=== PATIENT | male | born 1960 | race Caucasian/White ===

== ENCOUNTER → 2016-11-05 | Outpatient (CLI) | payer BC, OTHER ==
[~2016-11-05] MED LIST: ACET-1256 PO; AMIT10TA6 PO; ATV1 PO; BENA-4 PO; CALC500C3 PO; CHOL2000 PO; CYM/30 PO; CYM30 PO; CYM60 PO; DIAZ2TAB PO; FLV1 PO; HYDR10TA52 PO; LEVE500T PO; LEVO300T2 PO; LSN20 PO; LSX40 PO; MGNO400 PO; NRN/600 PO; NRN100 PO; OMEP40CA41 PO; OXYC-106 PO; OXYC7.5T62 PO; PSYL48.59 PO; SLWMEC PO; SOMA6INJ SQ; SUMA50TA15 PO; TEST1GEL15 TOP; TEST1INJ2 IM; THM100 PO; TNR50 PO; TUMS PO; VTMD PO; ZLF/50 PO; ZOLP10TA PO; ZOLP10TA6 PO
--- NOTE | 2016-11-05 12:46 | DIAGNOSTIC IMAGING REPORT ---
RIGHT KNEE RADIOGRAPHS WITH COMPARISON STANDING AP RADIOGRAPH OF THE LEFT KNEE CLINICAL HISTORY: Chronic right knee pain. COMPARISON: Knee radiographs May 18, 2015. FINDINGS: Comparison standing AP radiograph of left knee demonstrates arthritis within the patellofemoral compartment is difficult to assess on this exam. There is marked joint space narrowing with extensive osteophytosis of the patellofemoral compartment of the right knee. There is moderate medial component joint space narrowing with osteophytosis. No fracture is identified. There may be a small right knee joint effusion. IMPRESSION: 1. Severe arthritis within the right knee, most pronounced within the medial and patellofemoral compartments. 2. Small right knee joint effusion. 3. No acute fracture. Electronically signed by: Brigido Jones M.D. 11/05/2016 12:44 PM Dictated Date/Time: 11/05/2016 12:42 PM
== END | disposition home or self-care (01) ==
LOC: C.RDSM 11:00
PROVIDERS: ATTEND Physical Medicine & Rehabilitation Sports Medicine
DX: M25.461 Effusion, right knee (principal); M17.11 Unilateral primary osteoarthritis, right knee

== ENCOUNTER 2016-12-14 09:10 | Inpatient (IN) | payer BC, OTHER ==
[2016-12-13 23:00] VITALS: BP 121/72; PULSE 70; O2SAT 95
[2016-12-14] VITALS (13 sets, daily range): BP systolic 57–122; BP diastolic 25–76; PULSE 68–80; TEMP 36.3–37.1; O2SAT 91–98; Ht 180.3 cm; Wt 143.2 kg
[~2016-12-14] VITALS: Ht 180.3 cm; Wt 143.2 kg
[~2016-12-14 09:10] MED LIST changes: -AMIT10TA6 PO; -ATV1 PO; -CALC500C3 PO; -CHOL2000 PO; -CYM30 PO; -CYM60 PO; -DIAZ2TAB PO; -FLV1 PO; -LSN20 PO; -MGNO400 PO; -NRN/600 PO; -NRN100 PO; -OXYC-106 PO; -SLWMEC PO; -SUMA50TA15 PO; -TEST1GEL15 TOP; -THM100 PO; -TUMS PO; -VTMD PO; -ZLF/50 PO; -ZOLP10TA6 PO
[2016-12-14] MEDS ORDERED: SODIUM CHLORIDE 0.9% 1000ML 1,000 ML IV STA (09:38)
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
[2016-12-14] MEDS ORDERED: CYM60 PO (09:50)
[2016-12-14] MEDS ORDERED: DIAZ2TAB PO (09:50)
[2016-12-14] MEDS ORDERED: CYM30 PO (09:50)
[2016-12-14] MEDS ORDERED: NRN100 PO (09:50)
[2016-12-14] MEDS ORDERED: OXYC-106 PO (09:50)
[2016-12-14] MEDS ORDERED: AMIT10TA6 PO (09:50)
[2016-12-14] MEDS ORDERED: ATV1 PO (09:50)
--- NOTE | 2016-12-14 10:11 | DIAGNOSTIC IMAGING REPORT ---
CHEST ONE VIEW PORTABLE CLINICAL HISTORY: confusion dyspnea COMPARISON STUDY: 08/16/2016 FINDINGS: Cardiomegaly. Pulmonary vasculature. Diaphragms are smooth. IMPRESSION: Congestive heart failure Electronically signed by: Papo Ruiz M.D. 12/14/2016 10:10 AM Dictated Date/Time: 12/14/2016 10:10 AM
[2016-12-14 11:02] LABS: BASO % 0.1 %; BASO ABS # 0.01 K/uL (0-0.2); COMPLETE YES; EOS % 0.8 %; HEMATOCRIT 41.3 % (42-52); IG% 0.3 %; LYMPH % 9.6 %; LYMPH ABS # 1.25 K/uL (1.2-3.4); MEAN CELL VOLUME 90.8 fL (80-100); MEAN CORPUSCULAR HEMOGLOBIN 31.2 pg (25-34); MEAN CORPUSCULAR HGB CONC 34.4 g/dl (32-36); MEAN PLATELET VOLUME 9.4 fL (7.4-10.4); MONO % 5.9 %; NEUT % 83.3 %; PLATELET COUNT 220 K/uL (130-400); RED BLOOD COUNT 4.55 M/uL (4.7-6.1); WHITE BLOOD COUNT 12.97 K/uL (4.8-10.8)
--- NOTE | 2016-12-14 11:06 | DIAGNOSTIC IMAGING REPORT ---
HEAD CT NONCONTRAST CT DOSE: 786.26 mGy.cm HISTORY: Mental status change confusion TECHNIQUE: Multiaxial CT images of the head were performed without the use of intravenous contrast. Comparison: 08/16/2016 Findings: The paranasal sinuses and mastoid air cells are clear. The calvarium and skull base are intact. The ventricles and sulci are within normal limits. There is no mass, hematoma, midline shift, or acute infarct. Impression: No acute intracranial abnormality. Electronically signed by: Papo Ruiz M.D. 12/14/2016 11:04 AM Dictated Date/Time: 12/14/2016 11:02 AM
[2016-12-14] MEDS ORDERED: FUROSEMIDE 40 MG/4 ML VIAL IV STA (11:16)
[2016-12-14] MEDS ORDERED: NALOXONE HCL 0.4 MG/1 ML VIAL/CARP IV STA ×2 (11:19→12:19)
[2016-12-14 11:27] LABS: BENZODIAZEPINE, URINE NEG (NEG); COCAINE,URINE NEG (NEG); PHENCYCLIDINE, URINE NEG (NEG)
[2016-12-14 11:31] LABS: BLOOD UREA NITROGEN 106 mg/dl (7-18); BUN/CREATININE RATIO 8.8 (10-20); CALCIUM 6.6 mg/dl (8.5-10.1); CARBON DIOXIDE 19 mmol/L (21-32); CHLORIDE 91 mmol/L (98-107); GLUCOSE 85 mg/dl (70-99); POTASSIUM 4.1 mmol/L (3.5-5.1); SODIUM 131 mmol/L (136-145)
[2016-12-14 12:03] LABS: ALB/GLOB RATIO 0.7 (0.9-2); ALKALINE PHOSPHATASE 55 U/L (45-117); ALT/SGPT 39 U/L (12-78); AST/SGOT 70 U/L (15-37)
[2016-12-14] MEDS ORDERED: CALCIUM GLUCONATE 10% 10 ML VIAL IV ONE (12:30)
[2016-12-14] MEDS ORDERED: HYDROCORTISONE IV 100 MG in SYRINGE 0 ML IV ONE (12:30)
[2016-12-14] MEDS ORDERED: CALCIUM GLUCONATE 10% 1,000 MG in SODIUM CHLORIDE 0.9% 50ML 50 ML IV ONE (12:30)
[2016-12-14] MEDS ORDERED: HYDROCORTISONE SOD SUCCINATE 100 MG/2 ML VIAL ONE (12:31)
[2016-12-14] MEDS ORDERED: TESTOSTERONE CYPIONATE IM 200 MG/ML VIAL IM SCH (13:00)
[2016-12-14] MEDS ORDERED: NRN/600 PO (13:26)
[2016-12-14] MEDS ORDERED: NOREPINEPHRINE BITARTRATE 1 MG/ML 4 ML VIAL ONE (13:58)
[2016-12-14] MEDS ORDERED: NOREPINEPHRINE BIT INJ 8 MG in DEXTROSE 5% 500ML 500 ML IV STA (13:59)
[2016-12-14] MEDS ORDERED: PATIENT'S HEIGHT AND/OR WEIGHT NEEDED SCH (14:15)
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
[2016-12-14 14:34] LABS: PROTHROMBIN TIME (PATIENT) 11.2 SECONDS (9.0-12.0)
[2016-12-14] MEDS ORDERED: GABAPENTIN 100 MG CAP PO SCH (15:00)
[2016-12-14] MEDS: NOREPINEPHRINE BIT INJ 8 MG in DEXTROSE 5% 500ML 500 ML IV PRN ×2 (15:07→23:04)
[2016-12-14] MEDS: SODIUM CHLORIDE 0.9% 1000ML 1,000 ML IV SCH ×2 (15:09→23:03)
--- NOTE | 2016-12-14 15:18 | DIAGNOSTIC IMAGING REPORT ---
RENAL ULTRASOUND HISTORY: Flank pain. Renal insufficiency. NATI COMPARISON: None. FINDINGS: Right kidney: Maximum dimension 11.2 cm. No evidence for hydronephrosis Normal corticomedullary differentiation and cortical thickness. Left kidney: Maximum dimension 11.5 cm. No evidence for hydronephrosis Normal corticomedullary differentiation and cortical thickness. Bladder: No bladder wall thickening. The bilateral ureteral jets were identified. IMPRESSION: Normal renal ultrasound. Electronically signed by: Papo Ruiz M.D. 12/14/2016 3:17 PM Dictated Date/Time: 12/14/2016 3:15 PM
[2016-12-14] MEDS: DOXYCYCLINE IV 100 MG in DEXTROSE 5% 100ML 100 ML IV SCH (15:28)
[2016-12-14] MEDS ORDERED: CALCIUM GLUCONATE 10% 1,000 MG in SODIUM CHLORIDE 0.9% 50ML 50 ML IV STA (16:17)
[2016-12-14 16:37] LABS: ALB/GLOB RATIO 0.6 (0.9-2); BUN/CREATININE RATIO 9.8 (10-20); CALCIUM 6.7 mg/dl (8.5-10.1); POTASSIUM 4.1 mmol/L (3.5-5.1)
[2016-12-14 16:45] LABS: VEN BLD GAS O2 SATURATION 89.9 %; VEN BLOOD GAS BASE EXCESS -9.9 mmol/L
[2016-12-14 16:47] LABS: ISTAT ARTERIAL BLOOD GAS HCO3 18 meq/L (19-24); ISTAT ARTERIAL BLOOD GAS PCO2 52 mmHg (35-46); ISTAT ARTERIAL BLOOD GAS PO2 65 mmHg (80-95); ISTAT ARTERIAL BLOOD GAS pH 7.15 (7.35-7.45); ISTAT CARBON DIOXIDE 20 mEq/l (24-31); ISTAT DELIVERY SYSTEM SimpleMask; ISTAT SITE Art Line
[2016-12-14 16:54] LABS: URINE APPEARANCE CLOUDY (CLEAR); URINE BILIRUBIN NEG (NEG); URINE COLOR YELLOW; URINE EPITHELIAL CELL AUTO >30 /lpf (0-5); URINE NITRITE NEG (NEG); URINE SPECIFIC GRAVITY 1.009 (1.000-1.030); UROBILINOGEN NEG (NEG)
[2016-12-14 16:55] LABS: MANUAL MICROSCOPIC REQUIRED? NO; REVIEW REQ? YES
--- NOTE | 2016-12-14 16:59 | DIAGNOSTIC IMAGING REPORT ---
CHEST ONE VIEW PORTABLE CLINICAL HISTORY: S/P CENTRAL LINE PLACEMENT COMPARISON STUDY: Early to same date FINDINGS: Stable cardiac enlargement. Central catheter place in superior vena cava. No evidence pneumothorax. IMPRESSION: Central catheter placed in the vena cava. No evidence pneumothorax. Electronically signed by: Papo Ruiz M.D. 12/14/2016 4:58 PM Dictated Date/Time: 12/14/2016 4:57 PM
[2016-12-14 17:04] LABS: URINE MUCUS PRESENT (NONE PRSENT)
--- NOTE | 2016-12-14 17:08 | NEPHROLOGY CONSULTATION ---
DATE OF CONSULTATION: 12/14/2016 ATTENDING OF RECORD: Dr. Crump. REASON FOR CONSULTATION: COURTNEY. HISTORY OF PRESENT ILLNESS: This is a 56-year-old male. He presents with extreme lethargy, altered mental status, ambulatory dysfunction while taking Percocet for the past week for chronic back pain issues and presents with a creatinine of 12. The patient back in 2012 had a very similar presentation. At that time, the patient's creatinine was 11 and the patient was found to be hypotensive with systolic pressures in the 70s and the patient was treated with a Narcan drip. During that presentation, calcium levels were low and the patient was repleted with aggressive calcium and the patient started to clinically improve and the patient avoided needing dialysis, creatinine eventually improved down to 1.5. The patient was seen by the [facility] at that time in 2012 when he was being followed by Dr. Dobson and Dr. Dobson no longer follows with the patient secondary to his chronic pain medication habit, currently now being followed by a [facility] primary, so I have been asked to evaluate the patient. The patient in the Emergency Room was given Narcan to help reverse the pain medications and the patient knows what year it is, knows the president, knows that he is in [facility], although still is quite lethargic. His feels that he looks much better now compared to presentation. Jimenez catheter was placed and patient does have good urine output. There was some suggestion of congestive heart failure; however, appears more like an infiltrative process and being treated as pneumonia and antibiotics have been started. The patient is hypotensive requiring pressor as well as IV fluids and has been started on stress dose steroids given his history of panhypopituitarism, requiring oral steroids at baseline. The patient denies any significant itching. No nausea or vomiting and still eating but is quite lethargic for the past 2 days and has been noticed to be twitching, which is likely a side effect of one of the medications he is on in the setting of renal failure. REVIEW OF SYSTEMS: No headaches, no blurry vision. Positive twitching, no overt shortness of breath, no chest pain, no nausea or vomiting, no diarrhea or constipation. The patient's urine is dark in color. Does have chronic pain issues and chronic back pain. All other review of systems otherwise negative. PAST MEDICAL HISTORY: CKD stage III with baseline creatinine of 1.5, alcohol abuse, hypertension, chronic substance abuse issues, gout, GERD, depression, hyperlipidemia, hypothyroidism; panhypopituitarism, requiring chronic steroids; seizure disorder, and history of subdural hematoma. PAST SURGICAL HISTORY: Transsphenoidal pituitary resection, tonsillectomy. FAMILY HISTORY: Significant for father with multiple myeloma, but did not require dialysis. Father also had hypertension. SOCIAL HISTORY: No smoking but does chew tobacco. Denies alcohol use and denies illegal substances is and lives with . HOME MEDICATIONS: Significant for amitriptyline 10 mg at night, atenolol 50 mg daily, benazepril/hydrochlorothiazide, Valium 2 mg p.o. q. 12, duloxetine 90 mg daily, Neurontin 3 times a day, hydrocortisone 20 mg in the morning and 10 mg at night, levothyroxine 300 mcg daily, sertraline 50 mg p.o. b.i.d., and Ambien 10 mg at night. CURRENT MEDICATIONS: Depo testosterone 100 mcg IM weekly, levothyroxine 300 mcg daily, heparin 5,000 units subQ q. 12, hydrocortisone 50 mg IV q. 6, ceftriaxone 1 gram IV q. 24, doxycycline 100 mg IV q. 12, Neurontin 100 mg daily, Levophed, normal saline at 125 mL an hour. The patient received 100 mg hydrocortisone, 1 gram of calcium gluconate, 2 doses of Narcan, 1 dose of Lasix as well as a 500 mL of fluid bolus. PHYSICAL EXAMINATION: VITAL SIGNS: Temperature 36.3, pulse 68, respiratory rate is 22, blood pressure 91/46, satting 91% on 4 liters. GENERAL: Awake, alert, oriented x3, obese, lethargic but arousable and does answer questions. EYES: No scleral icterus. HEENT: Mucous membranes are dry. NECK: Supple. PULMONARY: Decreased breath sounds at the bases. CARDIAC: Distant heart sounds. ABDOMEN: Bowel sounds positive, although hypoactive; soft, nontender. EXTREMITIES: No significant clubbing, cyanosis or edema. NEUROLOGICALLY: Lethargic and has some twitching. DERMATOLOGIC: No rash or ulcers noted. LABORATORIES AND IMAGING DATA: White count is 12, H\T\H 14 and 41 and platelet count is 220. Sodium level is 131, potassium 4.1, chloride is 91, bicarbonate is 19, BUN is 106, creatinine is 12, glucose is 85. Calcium 6.6, AST is 70, total CK 3280, procalcitonin 12, albumin is 3.2. PTH of 275, vitamin D of 4.4, ionized calcium 0.79, lactic acid of 1.3. INR is 1. Opiates are positive. Ethyl alcohol negative. Urine tox screen otherwise negative. Blood cultures pending. Renal ultrasound with right kidney of 11.2 cm and the left kidney 11.5 cm. Normal renal ultrasound. Chest x-ray shows congestive heart failure. Head CT shows no acute intracranial abnormality. ASSESSMENT AND PLAN: 1. Acute kidney injury in the setting of pain medication, causing volume depletion and hypotension, appears significant enough to have caused acute tubular necrosis. Checking a urinalysis with micro as well as a random urine sodium now. The patient's potassium levels are stable; the patient is not severely acidotic and denies ingesting any ethylene glycol or methanol. Indication for dialysis would be clearance of medications that may have build up in his system in the setting of renal failure. The patient does have some twitching, which is likely side effect of one of the meds that he is on. I would like to stop the Neurontin completely for now until kidney function starts to improve. Discussed case with Dr. Gamboa of pulmonary critical care and we are repeating lab work now. Mental status appears improved, although the patient is still lethargic. If the patient's mental status continues to slowly improve, will hold off on dialysis; however, if mental status starts to worsen, will plan on dialysis. For now, repeat labs, continue to monitor mental status. Currently on antibiotics for possible pneumonia. 2. Hypocalcemia. Calcium level is dropping likely secondary to elevated phosphorus in the setting of renal failure, given 1 gram of calcium gluconate and likely need another gram, so will go ahead and order that and check phosphorus levels with the next set of labs. 3. Metabolic acidosis. Bicarb levels are stable at 19. Will be checking a VBG to check a pH. If the patient does become severely acidotic, that would be another indication for possible dialysis. Overall, back in 2012 when patient had a very similar presentation with a creatinine up to 11, low blood pressures and low calcium levels, they were able to avoid dialysis during that admission and the patient is currently stable on the pressors, mentating well. Did check an echo of his heart to assess cardiac function as well as rechecking the thyroid levels and continue on stress dose steroids. Overall, poor prognosis given the constellation of findings; however, no emergent need for dialysis unless mental status starts to worsen. I appreciate the consultation. ROBE
--- NOTE | 2016-12-14 17:11 | Critical Care Consultation ---
Critical Care Consultation Date of Consultation: Dec 14, 2016. Attending Physician: Abdullahi Crump MD Reason for Consultation: Acute renal failure, hypotension History of Present Illness Patient is a 56-year-old male who has had waxing and waning mental status over the last 2-3 days. Patient's brought the patient to the emergency room today for further evaluation. She stated that within the last week the patient was being evaluated for knee pain and was possibly given a prescription for Percocet. There is a history of narcotic use and abuse and reportedly taking them every 4 hours. Upon arrival in the emergency department the patient was discovered to have a profoundly elevated BUN and creatinine, he was also given Narcan and had some improvement in his mental status. There are concerns about possible volume overload given his chest x-ray findings. 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 Family History Cancer FH: multiple myeloma FATHER Hypertension FATHER Social History Smoking Status: Never Smoker Smokeless Tobacco Use: Yes Alcohol Use: none Marital Status: Housing Status: lives with family Allergies Coded Allergies: BEE STING (Verified Allergy, Severe, anaphylaxis, 12/14/16) NSAIDs (Verified Allergy, Unknown, contraindicated d/t med hx., 12/14/16) Simvastatin (Verified Adverse Reaction, Unknown, unknown, 12/14/16) Home Medications Scheduled Amitriptyline Hcl (Elavil), 10 MG PO HS Atenolol (Atenolol), 50 MG PO DAILY Benazepril/Hctz (Lotensin Hct), 2 TABS PO DAILY Diazepam (Valium), 2 MG PO Q12 Duloxetine HCl (Duloxetine HCl), 60 MG PO DAILY Duloxetine HCl (Duloxetine HCl), 30 MG PO DAILY Gabapentin (Neurontin), 1 TAB PO TID Hydrocortisone (Cortef), 10 MG PO QPM Hydrocortisone (Cortef), 20 MG PO QAM Levothyroxine Sodium (Synthroid), 300 MCG PO DAILY Lorazepam (Lorazepam), 1 TAB PO BID Omeprazole (Prilosec), 40 MG PO DAILY Sertraline HCl (Sertraline HCl), 50 MG PO BID Somatropin (Humatrope), 1 EA SQ DAILY Testosterone Cypionate (Testosterone Cypionate), 100 MG IM WK Zolpidem Tartrate (Ambien), 10 MG PO HS Scheduled PRN Acetaminophen (Tylenol), 1,000 MG PO TID PRN for Pain Furosemide (Furosemide), 40 MG PO DAILY PRN for edema Oxycodone/Acetaminophen 10MG/325MG (Percocet 10MG/325MG), 1 TAB PO Q6 PRN for Pain Current Inpatient Medications Current Inpatient Medications Medications (Trade) Dose Ordered Sig/Hernandez Route Start Time Stop Time Status Last Admin Dose Admin Ceftriaxone Sodium 1 gm/ Dextrose 50 ml @ 100 mls/hr Q24H IV 12/14/16 15:00 12/21/16 14:59 Doxycycline Hyclate/Dextrose (Vibramycin IV/ D5 100ml) 110 ml @ 50 mls/hr Q12H IV 12/14/16 15:00 12/21/16 14:59 Heparin Sodium (Porcine) 5000 unit 5,000 unit Q12H SQ 12/14/16 12:45 01/13/17 12:44 UNV Hydrocortisone Sodium Succinate 50 mg/Syringe 1 ml @ 4 mls/min Q6H IV 12/14/16 18:30 01/13/17 18:29 Sodium Chloride (Nss 1000ml) 1,000 ml @ 125 mls/hr Q8H IV 12/14/16 12:45 01/13/17 12:44 Levothyroxine Sodium (Synthroid Tab) 300 mcg DAILYBB PO 12/15/16 06:00 01/14/17 05:59 Non-Formulary Medication (Somatropin (Humatrope)) 1 ea DAILY SQ 12/15/16 09:00 01/14/17 08:59 UNV Testosterone Cypionate (Depo-Testosterone Inj) 100 mg UD IM 12/15/16 13:00 01/14/17 12:59 UNV Gabapentin 100 mg 100 mg QAM PO 12/14/16 15:00 01/13/17 14:59 Norepinephrine Bitartrate/ Dextrose (Levophed Inj/ D5W 500ml) 508 ml @ 0 mls/hr Q0M PRN IV 12/14/16 15:00 01/13/17 14:59 Review of Systems See above for pertinent positives & negatives. A total of 10 systems reviewed and were otherwise negative. Respiratory: No cough Cardiovascular: No chest pain Genitourinary - Male: No dysuria, No urinary frequency Physical Exam Date Time Temp Pulse Resp B/P Pulse Ox O2 Delivery O2 Flow Rate FiO2 12/14/16 14:15 36.3 71 22 87/44 91 Nasal Cannula 4.0 12/14/16 14:01 37.0 68 18 89/48 96 12/14/16 12:56 68 18 89/48 96 Nasal Cannula 3.0 12/14/16 11:26 62 20 79/44 98 12/14/16 11:25 62 20 80/35 98 Nasal Cannula 4.0 12/14/16 11:07 63 16 68/39 95 Nasal Cannula 3.0 12/14/16 10:41 63 66/34 4.0 12/14/16 09:40 65 12/14/16 09:31 97 2.0 12/14/16 09:17 37.0 73 20 87 Room Air General Appearance: WD/WN, no apparent distress Head: normocephalic, atraumatic Eyes: PERRLA, EOMI Neck: normal range of motion, no tenderness, trachea midline, no stridor, supple, no thyromegaly Respiratory: no respiratory distress Cardiovasular: no M/G/R, irregular rate (bradycardia) Abdomen: non tender, normal bowel sounds, no rebound, no masses Back: normal inspection, no midline tenderness Edema: Bilateral LE (2+) Neuro: decreased LOC (required prompting 1 to elicit correct day and month) Laboratory Results Last 24 Hours Test 12/14/16 09:28 12/14/16 10:10 12/14/16 10:50 12/14/16 13:59 Bedside Glucose 84 mg/dl Urine Opiates Screen POS Urine Methadone, Qualitative NEG Urine Barbiturates NEG Urine Phencyclidine (PCP) Level NEG Ur Amphetamine/Methamphetamine NEG MDMA (Ecstasy) Screen NEG Urine Benzodiazepines Screen NEG Urine Cocaine Metabolite NEG Urine Marijuana (THC) NEG White Blood Count 12.97 K/uL Red Blood Count 4.55 M/uL Hemoglobin 14.2 g/dL Hematocrit 41.3 % Mean Corpuscular Volume 90.8 fL Mean Corpuscular Hemoglobin 31.2 pg Mean Corpuscular Hemoglobin Concent 34.4 g/dl Platelet Count 220 K/uL Mean Platelet Volume 9.4 fL Neutrophils (%) (Auto) 83.3 % Lymphocytes (%) (Auto) 9.6 % Monocytes (%) (Auto) 5.9 % Eosinophils (%) (Auto) 0.8 % Basophils (%) (Auto) 0.1 % Neutrophils # (Auto) 10.81 K/uL Lymphocytes # (Auto) 1.25 K/uL Monocytes # (Auto) 0.76 K/uL Eosinophils # (Auto) 0.10 K/uL Basophils # (Auto) 0.01 K/uL RDW Standard Deviation 53.5 fL RDW Coefficient of Variation 16.3 % Immature Granulocyte % (Auto) 0.3 % Immature Granulocyte # (Auto) 0.04 K/uL Prothrombin Time 11.2 SECONDS Prothromb Time International Ratio 1.0 Sodium Level 131 mmol/L Potassium Level 4.1 mmol/L Chloride Level 91 mmol/L Carbon Dioxide Level 19 mmol/L Anion Gap 21.0 mmol/L Blood Urea Nitrogen 106 mg/dl Creatinine 12.00 mg/dl Estimated GFR () 4.8 Estimated GFR (Non- 4.2 BUN/Creatinine Ratio 8.8 Random Glucose 85 mg/dl Calcium Level 6.6 mg/dl Total Bilirubin 0.6 mg/dl Aspartate Amino Transf (AST/SGOT) 70 U/L Alanine Aminotransferase (ALT/SGPT) 39 U/L Alkaline Phosphatase 55 U/L Total Creatine Kinase 3280 U/L Troponin I < 0.015 ng/ml Total Protein 7.6 gm/dl Albumin 3.2 gm/dl Globulin 4.4 gm/dl Albumin/Globulin Ratio 0.7 25-Hydroxy Vitamin D Total 4.4 ng/ml Procalcitonin 11.94 ng/mL Ethyl Alcohol mg/dL < 3.0 mg/dl Lactic Acid Level 1.3 mmol/L Ionized Calcium 0.79 mmol/l Parathyroid Hormone (Intact) 275.6 pg/mL Diagnostic Results HEAD CT NONCONTRAST CT DOSE: 786.26 mGy.cm HISTORY: Mental status change confusion TECHNIQUE: Multiaxial CT images of the head were performed without the use of intravenous contrast. Comparison: 08/16/2016 Findings: The paranasal sinuses and mastoid air cells are clear. The calvarium and skull base are intact. The ventricles and sulci are within normal limits. There is no mass, hematoma, midline shift, or acute infarct. Impression: No acute intracranial abnormality. Electronically signed by: Papo Ruiz M.D. 12/14/2016 11:04 AM Dictated Date/Time: 12/14/2016 11:02 AM CHEST ONE VIEW PORTABLE CLINICAL HISTORY: confusion dyspnea COMPARISON STUDY: 08/16/2016 FINDINGS: Cardiomegaly. Pulmonary vasculature. Diaphragms are smooth. IMPRESSION: Congestive heart failure Electronically signed by: Papo Ruiz M.D. 12/14/2016 10:10 AM Dictated Date/Time: 12/14/2016 10:10 AM RENAL ULTRASOUND HISTORY: Flank pain. Renal insufficiency. NATI COMPARISON: None. FINDINGS: Right kidney: Maximum dimension 11.2 cm. No evidence for hydronephrosis Normal corticomedullary differentiation and cortical thickness. Left kidney: Maximum dimension 11.5 cm. No evidence for hydronephrosis Normal corticomedullary differentiation and cortical thickness. Bladder: No bladder wall thickening. The bilateral ureteral jets were identified. IMPRESSION: Normal renal ultrasound. Electronically signed by: Papo Ruiz M.D. 12/14/2016 3:17 PM Limited bedside ultrasound of the chest: Right chest revealed a type a profile without any evidence of pulmonary edema, the left chest demonstrated early infiltrative process and mild B1 and B3 lines. Concerning differential includes early pneumonic process. Assessment & Plan Reason Critically Ill: Acute renal failure, likely narcotic overdose secondary to renal failure and hypotension requiring vasoactive medications PLAN: Neuro: Metabolic encephalopathy: Likely multi-factorial, azotemia and metabolites of opiates. Resp: Type AB profile, concern for possibly early infiltrative process of the left lung: Community-acquired process: Rocephin and doxycycline. BMI is 31, hypoxia likely has obstructive sleep apnea will place on CPAP CV: Hypotension, likely multifactorial secondary to azotemia and narcotic use, check echo, troponins unremarkable 1, history of panhypopituitarism Fluids/Renal: Hypocalcemia, likely secondary to acute renal failure, Lasix challenge ID: Rocephin and doxycycline for pulmonary infection 7 days of treatment GI/Nutrition: Nothing by mouth until mental status improves Heme: Heparin 5000 units twice a day for prophylaxis Endocrine: Panhypopituitarism, hydrocortisone 50 mg every 6 hours, hypothyroidism levothyroxine 300 g by mouth daily, testosterone injections Vascular access: Right IJ placed 12/14/2016 CODE STATUS: Patient does not desire resuscitative efforts in event of cardiac arrest. He is agreeable with intubation for volume overload or decreased mental status. Patient surrogate decision maker would be his , he does not have a pre- existing healthcare directive I have personally spent 45 minutes of critical care time in the direct management of this patient. This is a life/limb threatening event. This includes time spent evaluating patient, direct bedside care, chart review, placing orders, interpretation of diagnostic studies, discussion with consultants, patient, and family members, as well as other required patient management activities. This time is exclusive of all separately billable procedures, and teaching time and separate from and in addition to any other critical care service time.
--- NOTE | 2016-12-14 17:14 | Procedure Note ---
Procedure Note Procedure Date Dec 14, 2016. Central Line Procedure time out: side/site verified, patient ID confirmed, sterile procedure used Consent obtained: written Time of procedure: 17:00 Performed by: attending Indications: central drug admin. Contraindications: other (azotemia) Prep: chlorhexadine prep, sterile drape, sterile procedures used Anesthesia: lidocaine 1% without epi Volume anesthetic (ml's): 3 Central line lumen: triple Central line location: internal jugular (R) Additional details: percutaneous placement, ultrasound guidance, line not sutured (commercial securement device) CXR: appropriate position Complications: none Patient tolerated procedure: well Post-procedure vital signs: reviewed and stable
[2016-12-14 17:30] LABS: THYROID STIMULATING HORMONE < 0.005 uIu/ml (0.300-4.500)
[2016-12-14] MEDS: CEFTRIAXONE SOD INJ 1 GM in DEXTROSE 5% ADD-VANTAGE 50ML 50 ML IV SCH (17:44)
[2016-12-14] MEDS: HYDROCORTISONE IV 50 MG in SYRINGE 0 ML IV SCH (17:45)
[2016-12-14] MEDS: ERGOCALCIFEROL 50,000 INTER.UNIT CAP PO SCH (17:45)
[2016-12-14 17:53] LABS: PHOSPHORUS 9.8 mg/dl (2.5-4.9)
[2016-12-14 21:38] LABS: BUN/CREATININE RATIO 10.8 (10-20); CALCIUM 6.7 mg/dl (8.5-10.1); POTASSIUM 4.4 mmol/L (3.5-5.1)
[2016-12-14 21:39] LABS: CREATININE 9.7 mg/dl (0.60-1.40)
[2016-12-14] MEDS: HEPARIN SOD 5000 UNIT/0.5 ML CARP SQ SCH (21:50)
[2016-12-14 22:25] LABS: PHOSPHORUS 8.9 mg/dl (2.5-4.9)
[2016-12-15] VITALS (14 sets, daily range): BP systolic 96–148; BP diastolic 58–77; PULSE 64–85; TEMP 36.8–37.2; O2SAT 90–97
[2016-12-15] MEDS: HYDROCORTISONE IV 50 MG in SYRINGE 0 ML IV SCH ×4 (00:42→18:20)
[2016-12-15] MEDS: DOXYCYCLINE IV 100 MG in DEXTROSE 5% 100ML 100 ML IV SCH ×2 (04:20→16:35)
[2016-12-15 05:45] LABS: HEMATOCRIT 43.9 % (42-52); MEAN CELL VOLUME 90.3 fL (80-100); MEAN CORPUSCULAR HEMOGLOBIN 30.7 pg (25-34); MEAN CORPUSCULAR HGB CONC 33.9 g/dl (32-36); MEAN PLATELET VOLUME 9.9 fL (7.4-10.4); PLATELET COUNT 213 K/uL (130-400); RED BLOOD COUNT 4.86 M/uL (4.7-6.1); WHITE BLOOD COUNT 11.51 K/uL (4.8-10.8)
[2016-12-15] MEDS ORDERED: LEVOTHYROXINE 100 MCG TAB PO SCH (06:00)
[2016-12-15 06:39] LABS: BLOOD UREA NITROGEN 99 mg/dl (7-18); BUN/CREATININE RATIO 14.3 (10-20); CALCIUM 6.6 mg/dl (8.5-10.1); CARBON DIOXIDE 20 mmol/L (21-32); CHLORIDE 98 mmol/L (98-107); GLUCOSE 138 mg/dl (70-99); MAGNESIUM 2.2 mg/dl (1.8-2.4); PHOSPHORUS 7.2 mg/dl (2.5-4.9); POTASSIUM 3.9 mmol/L (3.5-5.1); SODIUM 134 mmol/L (136-145); THYROID STIMULATING HORMONE < 0.005 uIu/ml (0.300-4.500)
--- NOTE | 2016-12-15 07:25 | DIAGNOSTIC IMAGING REPORT ---
CHEST ONE VIEW PORTABLE HISTORY: hypoxia COMPARISON: Chest 12/14/2016. FINDINGS: There are low lung volumes. The heart remains enlarged. Mild interstitial pulmonary edema and trace bilateral pleural effusions persist. Bibasilar densities remain unchanged. This may represent atelectasis. Right jugular central venous catheter terminates in the proximal SVC. IMPRESSION: No change in the cardiomegaly and suspected pulmonary edema. Electronically signed by: Inocencio Rene M.D. 12/15/2016 7:24 AM Dictated Date/Time: 12/15/2016 7:23 AM
--- NOTE | 2016-12-15 08:02 | Nephrology Progress Note ---
Nephrology Progress Note Date of Service: Dec 15, 2016. Subjective 56 yo male with atn/volume depletion with overmedication of pain medications contributing to hypotension and hypocalcemia with hyperphosphatemia. pts mental status much improved. urinating well. pt is hungry and thirsty. still requiring pressors. Objective Date Time Temp Pulse Resp B/P Pulse Ox O2 Delivery O2 Flow Rate FiO2 12/15/16 06:00 64 17 113/70 92 Nasal Cannula 2.0 12/15/16 04:00 Nasal Cannula 2.0 12/15/16 04:00 37.2 65 14 114/75 92 Nasal Cannula 2.0 12/15/16 03:00 66 16 113/70 90 Nasal Cannula 2.0 12/15/16 02:00 65 15 120/77 97 Nasal Cannula 2.0 12/15/16 00:16 72 97 6.0 12/15/16 00:15 CPAP 12/15/16 00:00 37.0 68 15 114/ 96 CPAP 12/14/16 22:00 72 14 116/70 96 CPAP 12/14/16 21:00 74 16 119/76 95 CPAP 12/14/16 20:04 75 98 6.0 12/14/16 20:00 CPAP 12/14/16 20:00 36.9 75 15 122/68 98 CPAP 12/14/16 18:00 37.1 80 16 107/67 94 6.0 12/14/16 16:00 94 Mask 6.0 12/14/16 15:00 68 91/46 12/14/16 14:30 76 101/52 12/14/16 14:15 68 86/50 12/14/16 14:15 36.3 71 22 87/44 91 Nasal Cannula 4.0 12/14/16 14:01 37.0 68 18 89/48 96 12/14/16 14:00 70 87/44 12/14/16 13:40 71 82/49 12/14/16 13:36 70 64/29 63/32 12/14/16 13:35 36.3 69 19 57/25 95 Nasal Cannula 3.0 58/27 12/14/16 12:56 68 18 89/48 96 Nasal Cannula 3.0 12/14/16 11:26 62 20 79/44 98 12/14/16 11:25 62 20 80/35 98 Nasal Cannula 4.0 12/14/16 11:07 63 16 68/39 95 Nasal Cannula 3.0 12/14/16 10:41 63 66/34 4.0 12/14/16 09:40 65 12/14/16 09:31 97 2.0 12/14/16 09:17 37.0 73 20 87 Room Air Physical Exam: General-aaox3, obese Eyes-no scleral icterus ENT-mmm Neck-supple Lungs-cta anteriorly Heart-rrr Abdomen-bs+ s/nt/nd Extremities-no c/c/e Neuro-nonfocal Current Inpatient Medications Medications (Trade) Dose Ordered Sig/Hernandez Route Start Time Stop Time Status Last Admin Dose Admin Ceftriaxone Sodium 1 gm/ Dextrose 50 ml @ 100 mls/hr Q24H IV 12/14/16 15:00 12/21/16 14:59 12/14/16 17:44 100 MLS/HR Doxycycline Hyclate/Dextrose (Vibramycin IV/ D5 100ml) 110 ml @ 50 mls/hr Q12H IV 12/14/16 15:00 12/21/16 14:59 12/15/16 04:20 50 MLS/HR Heparin Sodium (Porcine) 5000 unit 5,000 unit Q12H SQ 12/14/16 21:00 01/13/17 20:59 12/14/16 21:50 5,000 UNIT Hydrocortisone Sodium Succinate 50 mg/Syringe 1 ml @ 4 mls/min Q6H IV 12/14/16 18:30 01/13/17 18:29 12/15/16 06:23 4 MLS/MIN Sodium Chloride (Nss 1000ml) 1,000 ml @ 125 mls/hr Q8H IV 12/14/16 12:45 01/13/17 12:44 12/14/16 23:03 125 MLS/HR Miscellaneous Information (Order Awaiting Action) 1 ea QS N/A 12/14/16 16:00 01/13/17 15:59 Testosterone Cypionate 100 mg 100 mg We@0900 IM 12/17/16 09:00 01/16/17 08:59 Norepinephrine Bitartrate/ Dextrose (Levophed Inj/ D5W 500ml) 508 ml @ 0 mls/hr Q0M PRN IV 12/14/16 15:00 01/13/17 14:59 12/14/16 23:04 73.4 MLS/HR Ergocalciferol 97912 interunit 50,000 interunit DAILY@0900 PO 12/14/16 17:00 01/13/17 16:59 12/14/16 17:45 50,000 INTERUNIT Levothyroxine Sodium 150 mcg/ Syringe 7.5 ml @ 2 mls/min DAILY@09 IV 12/15/16 09:00 01/14/17 08:59 Calcium Gluconate/ Sodium Chloride (Calcium Gluconate 10%/Nss 50ml) 70 ml @ 240 mls/hr NOW STAT IV 12/15/16 07:49 12/15/16 08:06 UNV Last 24 Hours Test 12/14/16 09:28 12/14/16 10:10 12/14/16 10:50 12/14/16 13:59 Bedside Glucose 84 mg/dl Urine Opiates Screen POS Urine Methadone, Qualitative NEG Urine Barbiturates NEG Urine Phencyclidine (PCP) Level NEG Ur Amphetamine/Methamphetamine NEG MDMA (Ecstasy) Screen NEG Urine Benzodiazepines Screen NEG Urine Cocaine Metabolite NEG Urine Marijuana (THC) NEG White Blood Count 12.97 K/uL Red Blood Count 4.55 M/uL Hemoglobin 14.2 g/dL Hematocrit 41.3 % Mean Corpuscular Volume 90.8 fL Mean Corpuscular Hemoglobin 31.2 pg Mean Corpuscular Hemoglobin Concent 34.4 g/dl Platelet Count 220 K/uL Mean Platelet Volume 9.4 fL Neutrophils (%) (Auto) 83.3 % Lymphocytes (%) (Auto) 9.6 % Monocytes (%) (Auto) 5.9 % Eosinophils (%) (Auto) 0.8 % Basophils (%) (Auto) 0.1 % Neutrophils # (Auto) 10.81 K/uL Lymphocytes # (Auto) 1.25 K/uL Monocytes # (Auto) 0.76 K/uL Eosinophils # (Auto) 0.10 K/uL Basophils # (Auto) 0.01 K/uL RDW Standard Deviation 53.5 fL RDW Coefficient of Variation 16.3 % Immature Granulocyte % (Auto) 0.3 % Immature Granulocyte # (Auto) 0.04 K/uL Prothrombin Time 11.2 SECONDS Prothromb Time International Ratio 1.0 Sodium Level 131 mmol/L Potassium Level 4.1 mmol/L Chloride Level 91 mmol/L Carbon Dioxide Level 19 mmol/L Anion Gap 21.0 mmol/L Blood Urea Nitrogen 106 mg/dl Creatinine 12.00 mg/dl Estimated GFR () 4.8 Estimated GFR (Non- 4.2 BUN/Creatinine Ratio 8.8 Random Glucose 85 mg/dl Calcium Level 6.6 mg/dl Total Bilirubin 0.6 mg/dl Aspartate Amino Transf (AST/SGOT) 70 U/L Alanine Aminotransferase (ALT/SGPT) 39 U/L Alkaline Phosphatase 55 U/L Total Creatine Kinase 3280 U/L Troponin I < 0.015 ng/ml Total Protein 7.6 gm/dl Albumin 3.2 gm/dl Globulin 4.4 gm/dl Albumin/Globulin Ratio 0.7 25-Hydroxy Vitamin D Total 4.4 ng/ml Procalcitonin 11.94 ng/mL Ethyl Alcohol mg/dL < 3.0 mg/dl Lactic Acid Level 1.3 mmol/L Ionized Calcium 0.79 mmol/l Parathyroid Hormone (Intact) 275.6 pg/mL Test 12/14/16 15:53 12/14/16 16:29 12/14/16 16:36 12/14/16 20:37 Sodium Level 130 mmol/L 129 mmol/L Potassium Level 4.1 mmol/L 4.4 mmol/L Chloride Level 91 mmol/L 92 mmol/L Carbon Dioxide Level 15 mmol/L 18 mmol/L Anion Gap 24.0 mmol/L 19.0 mmol/L Blood Urea Nitrogen 108 mg/dl 105 mg/dl Creatinine 11.00 mg/dl 9.70 mg/dl Est Creatinine Clear Calc Drug Dose 9.2 ml/min 10.4 ml/min Estimated GFR () 5.3 6.2 Estimated GFR (Non- 4.6 5.4 BUN/Creatinine Ratio 9.8 10.8 Random Glucose 103 mg/dl 154 mg/dl Calcium Level 6.7 mg/dl 6.7 mg/dl Total Bilirubin 0.7 mg/dl Aspartate Amino Transf (AST/SGOT) 91 U/L Alanine Aminotransferase (ALT/SGPT) 39 U/L Alkaline Phosphatase 62 U/L Total Protein 7.6 gm/dl Albumin 2.9 gm/dl Globulin 4.7 gm/dl Albumin/Globulin Ratio 0.6 Venous Blood pH 7.19 Venous Blood Partial Pressure CO2 49 mmHg Venous Blood Partial Pressure O2 68 mmHg Venous Blood HCO3 18 mmol/L Venous Blood Oxygen Saturation 89.9 % Venous Blood Base Excess -9.9 mmol/L Ionized Calcium 0.79 mmol/l Phosphorus Level 9.8 mg/dl 8.9 mg/dl C-Reactive Protein 29.20 mg/dl Pro-B-Type Natriuretic Peptide 2632 pg/ml Thyroid Stimulating Hormone (TSH) < 0.005 uIu/ml Blood Gas Sample Site Art Line Bedside Blood Gas pH (LAB) 7.15 Bedside Blood Gas pCO2 (LAB) 52 mmHg Bedside Blood Gas pO2 (LAB) 65 mmHg Bedside Blood Gas HCO3 (LAB) 18 meq/L Bedside Blood Gas Total CO2 20 mEq/l Bedside Blood Gas Base Excess (LAB) -11.0 meq/L Bedside Blood Gas O2 Saturation 85.0 % Tunde Test NA Oxygen Delivery Device SimpleMask Test 12/15/16 00:09 12/15/16 05:26 12/15/16 05:30 Bedside Glucose 140 mg/dl 128 mg/dl White Blood Count 11.51 K/uL Red Blood Count 4.86 M/uL Hemoglobin 14.9 g/dL Hematocrit 43.9 % Mean Corpuscular Volume 90.3 fL Mean Corpuscular Hemoglobin 30.7 pg Mean Corpuscular Hemoglobin Concent 33.9 g/dl RDW Standard Deviation 53.4 fL RDW Coefficient of Variation 16.1 % Platelet Count 213 K/uL Mean Platelet Volume 9.9 fL Sodium Level 134 mmol/L Potassium Level 3.9 mmol/L Chloride Level 98 mmol/L Carbon Dioxide Level 20 mmol/L Anion Gap 16.0 mmol/L Blood Urea Nitrogen 99 mg/dl Creatinine 6.90 mg/dl Est Creatinine Clear Calc Drug Dose 17.6 ml/min Estimated GFR () 9.4 Estimated GFR (Non- 8.1 BUN/Creatinine Ratio 14.3 Random Glucose 138 mg/dl Calcium Level 6.6 mg/dl Phosphorus Level 7.2 mg/dl Magnesium Level 2.2 mg/dl Total Creatine Kinase 2852 U/L Thyroid Stimulating Hormone (TSH) < 0.005 uIu/ml Free Thyroxine 1.07 ng/dl Date/Time Source Procedure Growth Status 12/14/16 13:59 Blood Blood Culture Pending Received 12/14/16 10:50 Blood Blood Culture Pending Received Assessment & Plan [id number]-[id number]-creatinine improved quickly indicating more likely volume depletion rather than atn. continue current iv fluids since tolerating them well. Hypocalcemia-on vitamin d daily for low vitamin d levels. has also been given iv calcium yesterday and will plan on two grams of calcium gluconate again this morning. low secondary to high phos and phos levels are improving as kidney function improves. hold on starting phosphate binders.
[2016-12-15] MEDS ORDERED: CALCIUM GLUCONATE 10% 2,000 MG in SODIUM CHLORIDE 0.9% 50ML 50 ML IV SCH (08:15)
[2016-12-15] MEDS: ERGOCALCIFEROL 50,000 INTER.UNIT CAP PO SCH (08:52)
[2016-12-15] MEDS: SODIUM CHLORIDE 0.9% 1000ML 1,000 ML IV SCH ×3 (08:53→19:55)
[2016-12-15] MEDS: NOREPINEPHRINE BIT INJ 8 MG in DEXTROSE 5% 500ML 500 ML IV PRN (08:58)
[2016-12-15] MEDS: HEPARIN SOD 5000 UNIT/0.5 ML CARP SQ SCH ×2 (08:59→20:49)
[2016-12-15] MEDS ORDERED: LEVOTHYROXINE SODIUM IV SCH (09:00)
[2016-12-15] MEDS ORDERED: GABAPENTIN 100 MG CAP PO SCH ×2 (09:00→21:00)
--- NOTE | 2016-12-15 09:05 | ECHOCARDIOGRAM REPORT ---
*NOTICE TO RECEIVING LIBERTARIAN AGENCY This information is strictly Confidential and protected under [place] law. [place] law prohibits you from making any further disclosure of this information unless further disclosure is expressly permitted by the written consent of the person to whom it pertains or is authorized by law. A general authorization for the release of medical or other information is not sufficient for this purpose. Hospital accepts no responsibility if the information is made available to any other person, INCLUDING THE PATIENT. Interpretation Summary * EXTREMELY LIMITED IMAGES, EVEN LIMITED WITH USE OF DEFINITY * Name: OSCAR FISHER Study Date: 12/14/2016 04:09 PM BP: 91/46 mmHg * Patient Location: 105 HR: 75 * : 1960 (M/d/yyyy) Gender: Male Height: 71 in * Age: 56 yrs Ethnicity: CA Weight: 322 lb * Performed By: Lindy Jade RDCS * * Reason For Study: HYPOTENSION * BSA: 2.6 m2 * History: HYPOTENSION * -- Conclusions -- * The study was technically difficult with veryl limited imaging. * The study is technically limited despite the administration of ultrasound contrast. * The left ventricle is normal in size. * The LV wall motion is gross normal on limited evaluation. * No regional wall motion abnormalities noted. * The left ventricular ejection fraction is grossly normal, >65% * No hemodynamically significant valvular aortic stenosis. * There is no mitral valve stenosis. * There is no pericardial effusion. Procedure Details * A contrast injection of Definity was performed to improve assessment of LV function. * Contrast was injected into an intravenous site in the left arm. * One vial of Definity ultrasound contrast was diluted in normal saline to a total volume of 10 ml. A total of '3' ml of solution was administered during imaging. * Lot # [id number] of Definity utilized for procedure. * Expiration date 1 NOV 29. * The attending nurse who injected the contrast agent was MICHAEL MEDINA RN. Left Ventricle * The left ventricle is normal in size. * The left ventricular ejection fraction is grossly normal. * The LV wall motion is gross normal on limited evaluation. * No regional wall motion abnormalities noted. Mitral Valve * The mitral valve is not well visualized. * There is no mitral valve stenosis. Tricuspid Valve * The tricuspid valve is not well visualized. Aortic Valve * The aortic valve is not well visualized. * No hemodynamically significant valvular aortic stenosis. Pulmonic Valve * The pulmonic valve is not well visualized. Pericardium/Pleural * There is no pericardial effusion. Doppler Measurements and Calculations MV E max rodrigue 113.6 cm/sec MV A max rodrigue 76.6 cm/sec MV E/A 1.5 MV dec time 0.19 sec
[2016-12-15] MEDS ORDERED: DIAZEPAM 2MG TAB PO ONE (09:23)
[2016-12-15] MEDS ORDERED: MoRPHine SULFATE 2 MG/ML CARP IV STA (09:23)
[2016-12-15] MEDS ORDERED: DOCUSATE SODIUM 100 MG CAP PO ONE (09:30)
[2016-12-15] MEDS: LEVOTHYROXINE 150 MCG TAB PO SCH (10:03)
--- NOTE | 2016-12-15 10:24 | Progress Note ---
Medicine Progress Note Date & Time of Visit: Dec 15, 2016 at 10:14. Subjective seen sitting up in bed in good spirits, alert, oriented denies dyspnea, chest pain, dizziness, nausea, headache no cough, sputum, abdominal pain, diarrhea poor recollection of events yesterday Objective Last 8 Hrs Date Time Temp Pulse Resp B/P Pulse Ox O2 Delivery O2 Flow Rate FiO2 12/15/16 06:00 64 17 113/70 92 Nasal Cannula 2.0 12/15/16 04:00 Nasal Cannula 2.0 12/15/16 04:00 37.2 65 14 114/75 92 Nasal Cannula 2.0 12/15/16 03:00 66 16 113/70 90 Nasal Cannula 2.0 Physical Exam: General- oriented x 3, not in distress, speaks in sentences with no effort Eyes- anicteric ENT- oropharynx clear Neck- (+) IJ central line right side: no swelling, bleeding Lungs- clear breath sounds bilaterally, no rales/wheezes Heart- regular rhythm; no murmurs Abdomen- normal bowel sounds, soft, nontender Extremities- no pretibial edema, no calf tenderness\ Neuro- alert, oriented x 3; no gross focal neuro deficits Skin- warm & dry Laboratory Results: Last 24 Hours Test 12/14/16 10:50 12/14/16 13:59 12/14/16 15:53 12/14/16 16:29 White Blood Count 12.97 K/uL Red Blood Count 4.55 M/uL Hemoglobin 14.2 g/dL Hematocrit 41.3 % Mean Corpuscular Volume 90.8 fL Mean Corpuscular Hemoglobin 31.2 pg Mean Corpuscular Hemoglobin Concent 34.4 g/dl Platelet Count 220 K/uL Mean Platelet Volume 9.4 fL Neutrophils (%) (Auto) 83.3 % Lymphocytes (%) (Auto) 9.6 % Monocytes (%) (Auto) 5.9 % Eosinophils (%) (Auto) 0.8 % Basophils (%) (Auto) 0.1 % Neutrophils # (Auto) 10.81 K/uL Lymphocytes # (Auto) 1.25 K/uL Monocytes # (Auto) 0.76 K/uL Eosinophils # (Auto) 0.10 K/uL Basophils # (Auto) 0.01 K/uL RDW Standard Deviation 53.5 fL RDW Coefficient of Variation 16.3 % Immature Granulocyte % (Auto) 0.3 % Immature Granulocyte # (Auto) 0.04 K/uL Prothrombin Time 11.2 SECONDS Prothromb Time International Ratio 1.0 Sodium Level 131 mmol/L 130 mmol/L Potassium Level 4.1 mmol/L 4.1 mmol/L Chloride Level 91 mmol/L 91 mmol/L Carbon Dioxide Level 19 mmol/L 15 mmol/L Anion Gap 21.0 mmol/L 24.0 mmol/L Blood Urea Nitrogen 106 mg/dl 108 mg/dl Creatinine 12.00 mg/dl 11.00 mg/dl Estimated GFR () 4.8 5.3 Estimated GFR (Non- 4.2 4.6 BUN/Creatinine Ratio 8.8 9.8 Random Glucose 85 mg/dl 103 mg/dl Calcium Level 6.6 mg/dl 6.7 mg/dl Total Bilirubin 0.6 mg/dl 0.7 mg/dl Aspartate Amino Transf (AST/SGOT) 70 U/L 91 U/L Alanine Aminotransferase (ALT/SGPT) 39 U/L 39 U/L Alkaline Phosphatase 55 U/L 62 U/L Total Creatine Kinase 3280 U/L Troponin I < 0.015 ng/ml Total Protein 7.6 gm/dl 7.6 gm/dl Albumin 3.2 gm/dl 2.9 gm/dl Globulin 4.4 gm/dl 4.7 gm/dl Albumin/Globulin Ratio 0.7 0.6 25-Hydroxy Vitamin D Total 4.4 ng/ml Procalcitonin 11.94 ng/mL Ethyl Alcohol mg/dL < 3.0 mg/dl Lactic Acid Level 1.3 mmol/L Ionized Calcium 0.79 mmol/l 0.79 mmol/l Parathyroid Hormone (Intact) 275.6 pg/mL Est Creatinine Clear Calc Drug Dose 9.2 ml/min Venous Blood pH 7.19 Venous Blood Partial Pressure CO2 49 mmHg Venous Blood Partial Pressure O2 68 mmHg Venous Blood HCO3 18 mmol/L Venous Blood Oxygen Saturation 89.9 % Venous Blood Base Excess -9.9 mmol/L Phosphorus Level 9.8 mg/dl C-Reactive Protein 29.20 mg/dl Pro-B-Type Natriuretic Peptide 2632 pg/ml Thyroid Stimulating Hormone (TSH) < 0.005 uIu/ml Test 12/14/16 16:36 12/14/16 20:37 12/15/16 00:09 12/15/16 05:26 Blood Gas Sample Site Art Line Bedside Blood Gas pH (LAB) 7.15 Bedside Blood Gas pCO2 (LAB) 52 mmHg Bedside Blood Gas pO2 (LAB) 65 mmHg Bedside Blood Gas HCO3 (LAB) 18 meq/L Bedside Blood Gas Total CO2 20 mEq/l Bedside Blood Gas Base Excess (LAB) -11.0 meq/L Bedside Blood Gas O2 Saturation 85.0 % Tunde Test NA Oxygen Delivery Device SimpleMask Sodium Level 129 mmol/L 134 mmol/L Potassium Level 4.4 mmol/L 3.9 mmol/L Chloride Level 92 mmol/L 98 mmol/L Carbon Dioxide Level 18 mmol/L 20 mmol/L Anion Gap 19.0 mmol/L 16.0 mmol/L Blood Urea Nitrogen 105 mg/dl 99 mg/dl Creatinine 9.70 mg/dl 6.90 mg/dl Est Creatinine Clear Calc Drug Dose 10.4 ml/min 17.6 ml/min Estimated GFR () 6.2 9.4 Estimated GFR (Non- 5.4 8.1 BUN/Creatinine Ratio 10.8 14.3 Random Glucose 154 mg/dl 138 mg/dl Calcium Level 6.7 mg/dl 6.6 mg/dl Phosphorus Level 8.9 mg/dl 7.2 mg/dl Bedside Glucose 140 mg/dl White Blood Count 11.51 K/uL Red Blood Count 4.86 M/uL Hemoglobin 14.9 g/dL Hematocrit 43.9 % Mean Corpuscular Volume 90.3 fL Mean Corpuscular Hemoglobin 30.7 pg Mean Corpuscular Hemoglobin Concent 33.9 g/dl RDW Standard Deviation 53.4 fL RDW Coefficient of Variation 16.1 % Platelet Count 213 K/uL Mean Platelet Volume 9.9 fL Magnesium Level 2.2 mg/dl Total Creatine Kinase 2852 U/L Thyroid Stimulating Hormone (TSH) < 0.005 uIu/ml Free Thyroxine 1.07 ng/dl Test 12/15/16 05:30 Bedside Glucose 128 mg/dl Date/Time Source Procedure Growth Status 12/14/16 13:59 Blood Blood Culture Pending Received 12/14/16 10:50 Blood Blood Culture Pending Received Assessment & Plan SHOCK - likely Hypovolemic from Poor Oral Intake, Concurrent use of Diuretics improving Levophed being weaned off continue IV fluids - Adrenal Insufficiency on chronic Cortef, s/p Pituitary Resection on stress dose Hydrocortisone - r/o Septic Shock ff up cultures on empiric Ceftri + Doxy METABOLIC ENCEPHALOPATHY LIKELY TOXIC-METABOLIC FROM UREMIA, HYPOVOLEMIA, POSSIBLE SEPSIS, CONCOMITANT PERCOCET USE - resolved - CT head negative - was taking Percocet for recent joint injection - management of above etiologies noted in this progress note ACUTE RENAL FAILURE ON CKD 3 HYPOCALCEMIA ELEVATED CPK - likely PreRenal - Renal US: no obtsruction - IV fluids being given Ca supplemented as well as Vit D hold Lisinopril/HCTZ - crea improving good urine output CPK improving - Nephro on board HX PITUITARY ADENOMA S/P RESECTION - stress dose steroids as above - continue testosterone, Humatrope, levothyroxine HX SEIZURES - continue gabapentin however renally dosed HTN - currently hypotensive - outpatient regimen: benazepril/HCTZ, atenolol DVT PROPHYLAXIS - SQ Heparin DISPO pending lives with at home Current Inpatient Medications: Current Inpatient Medications Medications (Trade) Dose Ordered Sig/Hernandez Route Start Time Stop Time Status Last Admin Dose Admin Ceftriaxone Sodium 1 gm/ Dextrose 50 ml @ 100 mls/hr Q24H IV 12/14/16 15:00 12/21/16 14:59 12/14/16 17:44 100 MLS/HR Doxycycline Hyclate/Dextrose (Vibramycin IV/ D5 100ml) 110 ml @ 50 mls/hr Q12H IV 12/14/16 15:00 12/21/16 14:59 12/15/16 04:20 50 MLS/HR Heparin Sodium (Porcine) 5000 unit 5,000 unit Q12H SQ 12/14/16 21:00 01/13/17 20:59 12/15/16 08:59 5,000 UNIT Hydrocortisone Sodium Succinate 50 mg/Syringe 1 ml @ 4 mls/min Q6H IV 12/14/16 18:30 01/13/17 18:29 12/15/16 06:23 4 MLS/MIN Sodium Chloride (Nss 1000ml) 1,000 ml @ 125 mls/hr Q8H IV 12/14/16 12:45 01/13/17 12:44 12/15/16 08:53 125 MLS/HR Miscellaneous Information (Order Awaiting Action) 1 ea QS N/A 12/14/16 16:00 01/13/17 15:59 Testosterone Cypionate 100 mg 100 mg We@0900 IM 12/17/16 09:00 01/16/17 08:59 Norepinephrine Bitartrate/ Dextrose (Levophed Inj/ D5W 500ml) 508 ml @ 0 mls/hr Q0M PRN IV 12/14/16 15:00 01/13/17 14:59 12/15/16 08:58 38.6 MLS/HR Ergocalciferol (Vitamin D Cap) 50,000 interunit DAILY@0900 PO 12/14/16 17:00 01/13/17 16:59 12/15/16 08:52 50,000 INTERUNIT Levothyroxine Sodium (Synthroid Tab) 300 mcg DAILYBB PO 12/15/16 10:00 01/14/17 09:59 12/15/16 10:03 300 MCG Diazepam (Valium Tab) 1 mg BID PO 12/15/16 21:00 01/14/17 20:59 Docusate Sodium (coLACE CAP) 100 mg BID PO 12/15/16 21:00 01/14/17 20:59 Amitriptyline HCl (Elavil Tab) 10 mg HS PO 12/15/16 21:00 01/14/17 20:59 Sertraline HCl (Zoloft Tab) 50 mg BID PO 12/15/16 21:00 01/14/17 20:59 Pantoprazole Sodium (Protonix Tab) 40 mg DAILY PO 12/16/16 09:00 01/15/17 08:59 Lorazepam (Ativan Tab) 1 mg BID PO 12/15/16 21:00 01/14/17 20:59 UNV
--- NOTE | 2016-12-15 10:24 | Critical Care Progress Note ---
Critical Care Progress Note Date of Service Dec 15, 2016. ICU Day ICU Day Number: [address] Fontaine Subjective 56 y/o M admitted to ICU after he presented with confusion which started 2 days [employer] after overdosing on Percocet prescribed for knee pain. was hypotensive on presentation with Systolic in 60s on arrival and was had COURTNEY with a Creatinine of 12. was treated with Narcan X2 in ER. Was admitted to ICU and treated with IVF and Levophed to maintain BP. Nephrology consulted for COURTNEY Alert and oriented today. requests a drink and complains of dry mouth. also c/o pain down his back shooting down both legs. denies any CP/SOB/palpitations. denies any coughing, fevers/chills. Objective GENERAL: Patient is in no acute distress, obese HEENT: No acute trauma, normocephalic atraumatic, mucous membranes moist, no nasal congestion, no scleral icterus, right IJ in place NECK: No stridor, no adenopathy, no meningismus, trachea is midline. LUNGS: Clear to auscultation bilaterally, no wheeze, no rhonchi, breath sounds equal. HEART: Without murmurs gallops or rubs, regular rate and rhythm. ABDOMEN: Soft, nontender, bowel sounds positive, no hernias, no peritonitis. EXTREMITIES: No cyanosis or edema, full range of motion of all the joints without pain or difficulty, no signs for acute trauma. NEUROLOGIC: Oriented x 3, no acute motor or sensory deficits, no focal weakness. SKIN: No rash, no jaundice, no diaphoresis. Assessment & Plan 56 y/o M admitted to ICU after he presented with confusion which started 2 days [employer] after overdosing on Percocet prescribed for knee pain. was hypotensive on presentation with Systolic in 60s on arrival and was had COURTNEY with a Creatinine of 12. was treated with Narcan X2 in ER. Neuro - Metabolic encephalopathy likely sec to opiates - resolved Chronic alcohol abuse/ sedatives : No signs of withdrawal for now - Monitor for withdrawal - Valium 1mg BID( home dose 2 mg BID) - Lorazepam 1 mg BID Renal: - COURTNEY on CKD stage 3: creatine at baseline 1.5, on arrival 12, today at 6.9 - Nephrology consult- appreciate input - Continue IVF Electrolytes: - Hypocalcemia: Ca at 6.6 sec to increased phosphates, 2 g calcium gluconate - Hyperphosphatemia: phos at 7.2 from 9.8 on presentation - PRP/phos/Ca later today CVS: Hypotension: BP ranging 110s/70s - Continue IVF and Levophed - Home benazepril/HCTZ and atenolol held - Echo 12/14: * The left ventricle is normal in size. * The LV wall motion is gross normal on limited evaluation. * No regional wall motion abnormalities noted. * The left ventricular ejection fraction is grossly normal, >65% * No hemodynamically significant valvular aortic stenosis. * There is no mitral valve stenosis. * There is no pericardial effusion. Resp: - Currently on 2L NC - CXR: No change in the cardiomegaly and suspected pulmonary edema. - Possible infiltrative process left lung: Rocephin day 2, Doxycycline day 2 GI/FEN: - Diet ordered - GERD: pantoprazole Endocrine: Panhypopituitarism s/p pituitary adenoma resection - hydrocortisone 50 mg every 6 hours - somatropin( to be brought in by his ) Hypothyroidism : - levothyroxine 300 g by mouth daily Low testosterone: - testosterone injections Psych: Depression: - Continue amitriptyline and Zoloft Chronic pain: - Cymbalta currently held due to renal function - will considering restarting gabapentin later today - Morphine 2 mg IV Heme: DVT prophylaxis: Heparin SQ Vascular access: Right IJ placed 12/14/2016 Level IV: full resuscitation, no cardioversion Disposition: In ICU, Monitor for withdrawal, Monitor Cr and BP Resident Physician Supervision Note: I interviewed and examined the patient. Discussed with Dr. Mckeon and agree with findings and plan as documented in the note. Any exceptions or clarifications are listed here: The patient's care was discussed in detail on multidisciplinary rounds today. He is more awake than yesterday but is becoming more confused as well. He has tried to get out of bed and per his RN, Ara, is concerned that if she doesn' t show him how to get the side rails on his bed down, he could perish in a fire. He denies recent alcohol use. I have reviewed VS, meds, labs, echo report, cxr and micro data. The impression and plan are well documented above. Additionally, he has mild rhabdo, his CPK is 2852 and improving. He is Vitamin D deficient and is being supplemented. I have added MVI, thiamine and folate to his medication regimen. He is at risk for withdrawal from opioids, benzos and gabapentin and possibly alcohol. We will reassess his mental status throughout the day and consider alcohol withdrawal prevention using ativan until his creatinine clearance has improved more significantly. Documented By: Maria De Jesus Fontaine Consults & Procedures Consultants: Nephrology Data Medications: Current Inpatient Medications Medications (Trade) Dose Ordered Sig/Hernandez Route Start Time Stop Time Status Last Admin Dose Admin Ceftriaxone Sodium 1 gm/ Dextrose 50 ml @ 100 mls/hr Q24H IV 12/14/16 15:00 12/21/16 14:59 12/14/16 17:44 100 MLS/HR Doxycycline Hyclate/Dextrose (Vibramycin IV/ D5 100ml) 110 ml @ 50 mls/hr Q12H IV 12/14/16 15:00 12/21/16 14:59 12/15/16 04:20 50 MLS/HR Heparin Sodium (Porcine) 5000 unit 5,000 unit Q12H SQ 12/14/16 21:00 01/13/17 20:59 12/15/16 08:59 5,000 UNIT Hydrocortisone Sodium Succinate 50 mg/Syringe 1 ml @ 4 mls/min Q6H IV 12/14/16 18:30 01/13/17 18:29 12/15/16 06:23 4 MLS/MIN Sodium Chloride (Nss 1000ml) 1,000 ml @ 125 mls/hr Q8H IV 12/14/16 12:45 01/13/17 12:44 12/15/16 08:53 125 MLS/HR Miscellaneous Information (Order Awaiting Action) 1 ea QS N/A 12/14/16 16:00 01/13/17 15:59 Testosterone Cypionate 100 mg 100 mg We@0900 IM 12/17/16 09:00 01/16/17 08:59 Norepinephrine Bitartrate/ Dextrose (Levophed Inj/ D5W 500ml) 508 ml @ 0 mls/hr Q0M PRN IV 12/14/16 15:00 01/13/17 14:59 12/15/16 08:58 38.6 MLS/HR Ergocalciferol (Vitamin D Cap) 50,000 interunit DAILY@0900 PO 12/14/16 17:00 01/13/17 16:59 12/15/16 08:52 50,000 INTERUNIT Levothyroxine Sodium (Synthroid Tab) 300 mcg DAILYBB PO 12/15/16 10:00 01/14/17 09:59 Diazepam (Valium Tab) 1 mg BID PO 12/15/16 21:00 01/14/17 20:59 Docusate Sodium (coLACE CAP) 100 mg BID PO 12/15/16 21:00 01/14/17 20:59 Amitriptyline HCl (Elavil Tab) 10 mg HS PO 12/15/16 21:00 01/14/17 20:59 Sertraline HCl (Zoloft Tab) 50 mg BID PO 12/15/16 21:00 01/14/17 20:59 Pantoprazole Sodium (Protonix Tab) 40 mg DAILY PO 12/16/16 09:00 01/15/17 08:59 I & O: 24-Hour Column 12/15/16 08:00 Intake Total 3160 ml Output Total 3600 ml Balance -440 ml Vital Signs: Date Time Temp Pulse Resp B/P Pulse Ox O2 Delivery O2 Flow Rate FiO2 12/15/16 06:00 64 17 113/70 92 Nasal Cannula 2.0 12/15/16 04:00 Nasal Cannula 2.0 12/15/16 04:00 37.2 65 14 114/75 92 Nasal Cannula 2.0 12/15/16 03:00 66 16 113/70 90 Nasal Cannula 2.0 12/15/16 02:00 65 15 120/77 97 Nasal Cannula 2.0 12/15/16 00:16 72 97 6.0 12/15/16 00:15 CPAP 12/15/16 00:00 37.0 68 15 114/ 96 CPAP 12/14/16 22:00 72 14 116/70 96 CPAP 12/14/16 21:00 74 16 119/76 95 CPAP 12/14/16 20:04 75 98 6.0 12/14/16 20:00 CPAP 12/14/16 20:00 36.9 75 15 122/68 98 CPAP 12/14/16 18:00 37.1 80 16 107/67 94 6.0 12/14/16 16:00 94 Mask 6.0 12/14/16 15:00 68 91/46 12/14/16 14:30 76 101/52 12/14/16 14:15 68 86/50 12/14/16 14:15 36.3 71 22 87/44 91 Nasal Cannula 4.0 12/14/16 14:01 37.0 68 18 89/48 96 12/14/16 14:00 70 87/44 12/14/16 13:40 71 82/49 12/14/16 13:36 70 64/29 63/32 12/14/16 13:35 36.3 69 19 57/25 95 Nasal Cannula 3.0 58/27 12/14/16 12:56 68 18 89/48 96 Nasal Cannula 3.0 12/14/16 11:26 62 20 79/44 98 12/14/16 11:25 62 20 80/35 98 Nasal Cannula 4.0 12/14/16 11:07 63 16 68/39 95 Nasal Cannula 3.0 12/14/16 10:41 63 66/34 4.0 Laboratory Results: Last 24 Hours Test 12/14/16 10:10 12/14/16 10:50 12/14/16 13:59 12/14/16 15:53 Urine Opiates Screen POS Urine Methadone, Qualitative NEG Urine Barbiturates NEG Urine Phencyclidine (PCP) Level NEG Ur Amphetamine/Methamphetamine NEG MDMA (Ecstasy) Screen NEG Urine Benzodiazepines Screen NEG Urine Cocaine Metabolite NEG Urine Marijuana (THC) NEG White Blood Count 12.97 K/uL Red Blood Count 4.55 M/uL Hemoglobin 14.2 g/dL Hematocrit 41.3 % Mean Corpuscular Volume 90.8 fL Mean Corpuscular Hemoglobin 31.2 pg Mean Corpuscular Hemoglobin Concent 34.4 g/dl Platelet Count 220 K/uL Mean Platelet Volume 9.4 fL Neutrophils (%) (Auto) 83.3 % Lymphocytes (%) (Auto) 9.6 % Monocytes (%) (Auto) 5.9 % Eosinophils (%) (Auto) 0.8 % Basophils (%) (Auto) 0.1 % Neutrophils # (Auto) 10.81 K/uL Lymphocytes # (Auto) 1.25 K/uL Monocytes # (Auto) 0.76 K/uL Eosinophils # (Auto) 0.10 K/uL Basophils # (Auto) 0.01 K/uL RDW Standard Deviation 53.5 fL RDW Coefficient of Variation 16.3 % Immature Granulocyte % (Auto) 0.3 % Immature Granulocyte # (Auto) 0.04 K/uL Prothrombin Time 11.2 SECONDS Prothromb Time International Ratio 1.0 Sodium Level 131 mmol/L 130 mmol/L Potassium Level 4.1 mmol/L 4.1 mmol/L Chloride Level 91 mmol/L 91 mmol/L Carbon Dioxide Level 19 mmol/L 15 mmol/L Anion Gap 21.0 mmol/L 24.0 mmol/L Blood Urea Nitrogen 106 mg/dl 108 mg/dl Creatinine 12.00 mg/dl 11.00 mg/dl Estimated GFR () 4.8 5.3 Estimated GFR (Non- 4.2 4.6 BUN/Creatinine Ratio 8.8 9.8 Random Glucose 85 mg/dl 103 mg/dl Calcium Level 6.6 mg/dl 6.7 mg/dl Total Bilirubin 0.6 mg/dl 0.7 mg/dl Aspartate Amino Transf (AST/SGOT) 70 U/L 91 U/L Alanine Aminotransferase (ALT/SGPT) 39 U/L 39 U/L Alkaline Phosphatase 55 U/L 62 U/L Total Creatine Kinase 3280 U/L Troponin I < 0.015 ng/ml Total Protein 7.6 gm/dl 7.6 gm/dl Albumin 3.2 gm/dl 2.9 gm/dl Globulin 4.4 gm/dl 4.7 gm/dl Albumin/Globulin Ratio 0.7 0.6 25-Hydroxy Vitamin D Total 4.4 ng/ml Procalcitonin 11.94 ng/mL Ethyl Alcohol mg/dL < 3.0 mg/dl Lactic Acid Level 1.3 mmol/L Ionized Calcium 0.79 mmol/l Parathyroid Hormone (Intact) 275.6 pg/mL Est Creatinine Clear Calc Drug Dose 9.2 ml/min Test 12/14/16 16:29 12/14/16 16:36 12/14/16 20:37 12/15/16 00:09 Venous Blood pH 7.19 Venous Blood Partial Pressure CO2 49 mmHg Venous Blood Partial Pressure O2 68 mmHg Venous Blood HCO3 18 mmol/L Venous Blood Oxygen Saturation 89.9 % Venous Blood Base Excess -9.9 mmol/L Ionized Calcium 0.79 mmol/l Phosphorus Level 9.8 mg/dl 8.9 mg/dl C-Reactive Protein 29.20 mg/dl Pro-B-Type Natriuretic Peptide 2632 pg/ml Thyroid Stimulating Hormone (TSH) < 0.005 uIu/ml Blood Gas Sample Site Art Line Bedside Blood Gas pH (LAB) 7.15 Bedside Blood Gas pCO2 (LAB) 52 mmHg Bedside Blood Gas pO2 (LAB) 65 mmHg Bedside Blood Gas HCO3 (LAB) 18 meq/L Bedside Blood Gas Total CO2 20 mEq/l Bedside Blood Gas Base Excess (LAB) -11.0 meq/L Bedside Blood Gas O2 Saturation 85.0 % Tunde Test NA Oxygen Delivery Device SimpleMask Sodium Level 129 mmol/L Potassium Level 4.4 mmol/L Chloride Level 92 mmol/L Carbon Dioxide Level 18 mmol/L Anion Gap 19.0 mmol/L Blood Urea Nitrogen 105 mg/dl Creatinine 9.70 mg/dl Est Creatinine Clear Calc Drug Dose 10.4 ml/min Estimated GFR () 6.2 Estimated GFR (Non- 5.4 BUN/Creatinine Ratio 10.8 Random Glucose 154 mg/dl Calcium Level 6.7 mg/dl Bedside Glucose 140 mg/dl Test 12/15/16 05:26 12/15/16 05:30 White Blood Count 11.51 K/uL Red Blood Count 4.86 M/uL Hemoglobin 14.9 g/dL Hematocrit 43.9 % Mean Corpuscular Volume 90.3 fL Mean Corpuscular Hemoglobin 30.7 pg Mean Corpuscular Hemoglobin Concent 33.9 g/dl RDW Standard Deviation 53.4 fL RDW Coefficient of Variation 16.1 % Platelet Count 213 K/uL Mean Platelet Volume 9.9 fL Sodium Level 134 mmol/L Potassium Level 3.9 mmol/L Chloride Level 98 mmol/L Carbon Dioxide Level 20 mmol/L Anion Gap 16.0 mmol/L Blood Urea Nitrogen 99 mg/dl Creatinine 6.90 mg/dl Est Creatinine Clear Calc Drug Dose 17.6 ml/min Estimated GFR () 9.4 Estimated GFR (Non- 8.1 BUN/Creatinine Ratio 14.3 Random Glucose 138 mg/dl Calcium Level 6.6 mg/dl Phosphorus Level 7.2 mg/dl Magnesium Level 2.2 mg/dl Total Creatine Kinase 2852 U/L Thyroid Stimulating Hormone (TSH) < 0.005 uIu/ml Free Thyroxine 1.07 ng/dl Bedside Glucose 128 mg/dl
[2016-12-15] MEDS ORDERED: LORAZEPAM 1 MG TAB PO ONE (11:00)
[2016-12-15] MEDS ORDERED: THIAMINE HCL 100 MG TAB PO ONE (12:30)
[2016-12-15] MEDS: MoRPHine SULFATE 2 MG/ML CARP IV PRN ×2 (13:02→22:33)
[2016-12-15 14:33] LABS: BUN/CREATININE RATIO 19.3 (10-20); CALCIUM 6.8 mg/dl (8.5-10.1); CREATININE 4.4 mg/dl (0.60-1.40); PHOSPHORUS 4.6 mg/dl (2.5-4.9); POTASSIUM 3.3 mmol/L (3.5-5.1)
[2016-12-15] MEDS ORDERED: POTASSIUM CHLORIDE 10 MEQ TABCR PO STA (14:44)
[2016-12-15] MEDS: CEFTRIAXONE SOD INJ 1 GM in DEXTROSE 5% ADD-VANTAGE 50ML 50 ML IV SCH (16:32)
--- NOTE | 2016-12-15 16:37 | Progress Note ---
Progress Note Date of Service Dec 15, 2016. Progress Note Egg Processing Supervisor: Discussion with patient and confirms that he does not take all the medications listed on his med rec at admission. He is not taking prilosec, elavil, or sertraline. He has had "issues" with ambien to the point that his has asked him not to take it but he does, however, not every night. He admits to shopping around for doctors who will prescribe him what he thinks he needs for pain. He was insistent this morning that he does not have a problem managing his medications but seems more receptive to the idea he needs some help with addiction. He is on probation for DUI x3 and admits to sipping 2-4 drinks per night but not every night.
[2016-12-15] MEDS ORDERED: NICOTINE 21 MG/24 HR TDSY TD ONE (17:30)
[2016-12-15] MEDS ORDERED: LORAZEPAM 2 MG/ML 1 ML VIAL IV PRN (18:30)
[2016-12-15] MEDS ORDERED: GABAPENTIN 600 MG TAB PO SCH (18:30)
[2016-12-15] MEDS: DOCUSATE SODIUM 100 MG CAP PO SCH (19:54)
[2016-12-15] MEDS ORDERED: GABAPENTIN 600MG LOADING DOSE PO ONE (20:00)
[2016-12-15 20:26] LABS: BUN/CREATININE RATIO 22.7 (10-20); CALCIUM 6.9 mg/dl (8.5-10.1); CREATININE 3.3 mg/dl (0.60-1.40); MAGNESIUM 1.8 mg/dl (1.8-2.4); POTASSIUM 3.2 mmol/L (3.5-5.1)
[2016-12-15] MEDS: LORAZEPAM 1 MG TAB PO SCH (20:48)
[2016-12-15] MEDS ORDERED: AMITRIPTYLINE HCL 10 MG TAB PO SCH (21:00)
[2016-12-15] MEDS ORDERED: DIAZEPAM 2MG TAB PO SCH (21:00)
[2016-12-15] MEDS ORDERED: SERTRALINE HCL 50 MG TAB PO SCH (21:00)
[2016-12-16] VITALS (10 sets, daily range): BP systolic 97–167; BP diastolic 54–90; PULSE 68–79; TEMP 36.6–37.1; O2SAT 90–100
[2016-12-16] MEDS: HYDROCORTISONE IV 50 MG in SYRINGE 0 ML IV SCH ×2 (00:35→06:13)
[2016-12-16] MEDS: DOXYCYCLINE IV 100 MG in DEXTROSE 5% 100ML 100 ML IV SCH (03:00)
[2016-12-16] MEDS: MoRPHine SULFATE 2 MG/ML CARP IV PRN (04:20)
[2016-12-16] MEDS: SODIUM CHLORIDE 0.9% 1000ML 1,000 ML IV SCH ×2 (04:45→12:52)
[2016-12-16 05:38] LABS: COMPLETE YES; HEMATOCRIT 37.4 % (42-52); IG% 0.4 %; LYMPH % 10.2 %; LYMPH ABS # 0.73 K/uL (1.2-3.4); MEAN CELL VOLUME 89.9 fL (80-100); MEAN CORPUSCULAR HGB CONC 33.4 g/dl (32-36); MEAN PLATELET VOLUME 10.2 fL (7.4-10.4); MONO % 6.8 %; NEUT % 82.6 %; PLATELET COUNT 155 K/uL (130-400); RED BLOOD COUNT 4.16 M/uL (4.7-6.1); WHITE BLOOD COUNT 7.17 K/uL (4.8-10.8)
[2016-12-16] MEDS ORDERED: GABAPENTIN 100MG Q6H DOSE PO SCH (06:00)
[2016-12-16 06:10] LABS: CALCIUM 6.7 mg/dl (8.5-10.1); MAGNESIUM 1.7 mg/dl (1.8-2.4)
[2016-12-16] MEDS: LEVOTHYROXINE 150 MCG TAB PO SCH (06:13)
[2016-12-16] MEDS ORDERED: POTASSIUM CHLORIDE 10 MEQ TABCR PO ONE ×2 (07:00→09:30)
[2016-12-16] MEDS ORDERED: MAGNESIUM SULFATE 1GM / D5W 1 GM in PREMIXED IN D5W 100 ML IV ONE (07:00)
--- NOTE | 2016-12-16 07:01 | DIAGNOSTIC IMAGING REPORT ---
CHEST ONE VIEW PORTABLE CLINICAL HISTORY: hypoxia COMPARISON STUDY: 12/15/2016 FINDINGS: The heart is enlarged. There is a right internal jugular central venous catheter. There is no overt failure. There is no focal pulmonary consolidation. No pleural effusions are visualized.[ IMPRESSION: Cardiomegaly. Resolution of the previously described pulmonary edema Electronically signed by: Mikie Brambila M.D. 12/16/2016 6:59 AM Dictated Date/Time: 12/16/2016 6:58 AM
[2016-12-16] MEDS ORDERED: POTASSIUM PHOS 3 MMOL/1 ML INFUSION IV STA ×2 (07:17→17:51)
[2016-12-16] MEDS ORDERED: POTASSIUM PHOSPHATE INJ 15 MMOL in SODIUM CHLORIDE 0.9% 250ML 250 ML IV ONE (08:00)
--- NOTE | 2016-12-16 08:29 | Nephrology Progress Note ---
Nephrology Progress Note Date of Service: Dec 16, 2016. Subjective 56 yo male with atn/volume depletion with overmedication of pain medications contributing to hypotension and hypocalcemia with hyperphosphatemia. pt overall doing much better. now that he is alert, his pain is coming back. complaining of left toe pain and knee pain and back pain. no sob. Objective Date Time Temp Pulse Resp B/P Pulse Ox O2 Delivery O2 Flow Rate FiO2 12/16/16 06:09 68 16 97/54 92 Room Air 12/16/16 04:00 37.0 69 17 108/66 94 Room Air 12/16/16 04:00 94 Room Air 12/16/16 02:00 72 18 101/59 90 Room Air 12/16/16 00:00 37.1 76 18 107/62 94 Room Air 12/16/16 00:00 94 Room Air 12/15/16 22:00 74 20 103/60 94 Room Air 12/15/16 20:00 37.1 69 18 107/61 92 Room Air 12/15/16 20:00 92 Room Air 12/15/16 18:00 76 16 96/58 90 Room Air 12/15/16 16:00 Room Air 12/15/16 16:00 36.8 84 20 133/60 92 Room Air 12/15/16 14:00 78 16 111/71 92 Room Air 12/15/16 12:00 36.8 75 20 115/60 94 Nasal Cannula 2.0 12/15/16 12:00 Room Air 12/15/16 10:00 85 22 115/67 92 Nasal Cannula 2.0 Physical Exam: General-aaox3, obese Eyes-no scleral icterus ENT-mmm Neck-supple Lungs-cta Heart-rrr, distant heart sounds Abdomen-bs+ s/nt/nd Extremities-no c/c/e Neuro-nonfocal Current Inpatient Medications Medications (Trade) Dose Ordered Sig/Hernandez Route Start Time Stop Time Status Last Admin Dose Admin Ceftriaxone Sodium 1 gm/ Dextrose 50 ml @ 100 mls/hr Q24H IV 12/14/16 15:00 12/21/16 14:59 12/15/16 16:32 100 MLS/HR Doxycycline Hyclate/Dextrose (Vibramycin IV/ D5 100ml) 110 ml @ 50 mls/hr Q12H IV 12/14/16 15:00 12/21/16 14:59 12/16/16 03:00 50 MLS/HR Heparin Sodium (Porcine) 5000 unit 5,000 unit Q12H SQ 12/14/16 21:00 01/13/17 20:59 12/15/16 20:49 5,000 UNIT Hydrocortisone Sodium Succinate 50 mg/Syringe 1 ml @ 4 mls/min Q6H IV 12/14/16 18:30 01/13/17 18:29 12/16/16 06:13 4 MLS/MIN Sodium Chloride (Nss 1000ml) 1,000 ml @ 125 mls/hr Q8H IV 12/14/16 12:45 01/13/17 12:44 12/16/16 04:45 125 MLS/HR Miscellaneous Information (Order Awaiting Action) 1 ea QS N/A 12/14/16 16:00 01/13/17 15:59 Testosterone Cypionate 100 mg 100 mg We@0900 IM 12/17/16 09:00 01/16/17 08:59 Norepinephrine Bitartrate/ Dextrose (Levophed Inj/ D5W 500ml) 508 ml @ 0 mls/hr Q0M PRN IV 12/14/16 15:00 01/13/17 14:59 12/15/16 08:58 38.6 MLS/HR Ergocalciferol (Vitamin D Cap) 50,000 interunit DAILY@0900 PO 12/14/16 17:00 01/13/17 16:59 12/15/16 08:52 50,000 INTERUNIT Levothyroxine Sodium (Synthroid Tab) 300 mcg DAILYBB PO 12/15/16 10:00 01/14/17 09:59 12/16/16 06:13 300 MCG Diazepam (Valium Tab) 1 mg BID PO 12/15/16 21:00 01/14/17 20:59 12/15/16 20:48 1 MG Docusate Sodium (coLACE CAP) 100 mg BID PO 12/15/16 21:00 01/14/17 20:59 Pantoprazole Sodium (Protonix Tab) 40 mg DAILY PO 12/16/16 09:00 01/15/17 08:59 Lorazepam (Ativan Tab) 1 mg BID PO 12/15/16 21:00 01/14/17 20:59 12/15/16 20:48 1 MG Morphine Sulfate (MoRPHine SULFATE INJ) 1 mg Q3H PRN IV 12/15/16 11:00 12/29/16 10:59 12/16/16 04:20 1 MG Multivitamins (Multivitamin Tab) 1 tab QAM PO 12/16/16 09:00 01/15/17 08:59 Thiamine HCl (Vitamin B-1 Tab) 100 mg QAM PO 12/16/16 09:00 01/15/17 08:59 Folic Acid (Folvite Tab) 1 mg QAM PO 12/16/16 09:00 01/15/17 08:59 Nicotine (Nicoderm Cq 21MG Patch) 1 patch QAM TD 12/16/16 09:00 01/15/17 08:59 Miscellaneous (Remove Nicoderm Patch) 1 ea HS N/A 12/15/16 21:00 01/14/17 20:59 12/15/16 19:55 1 EA Lorazepam (Ativan Inj) 1 mg ONE PRN IV 12/15/16 18:30 Gabapentin (Neurontin Cap) 100 mg Q6H PO 12/16/16 06:00 12/16/16 12:01 12/16/16 06:13 100 MG Gabapentin (Neurontin Tab) 600 mg TODAY@1200 PO 12/17/16 12:00 12/17/16 12:01 Gabapentin (Neurontin Cap) 400 mg TODAY@1200 PO 12/18/16 12:00 12/18/16 12:01 Gabapentin 200 mg 200 mg TODAY@1200 ONCE PO 12/19/16 12:00 12/19/16 12:01 Magnesium Sulfate 1 gm/Prmx 100 ml @ 100 mls/hr Q1H IV 12/16/16 08:00 12/16/16 09:59 Potassium Phosphate/Sodium Chloride (Potassium Phosphate Inj/Nss 250ml) 255 ml @ 88 mls/hr TODAY@0800 ONCE IV 12/16/16 08:00 12/16/16 10:53 Last 24 Hours Test 12/15/16 11:17 12/15/16 13:58 12/15/16 16:54 12/15/16 19:53 Bedside Glucose 119 mg/dl 166 mg/dl Sodium Level 136 mmol/L 137 mmol/L Potassium Level 3.3 mmol/L 3.2 mmol/L Chloride Level 100 mmol/L 100 mmol/L Carbon Dioxide Level 21 mmol/L 23 mmol/L Anion Gap 15.0 mmol/L 14.0 mmol/L Blood Urea Nitrogen 85 mg/dl 75 mg/dl Creatinine 4.40 mg/dl 3.30 mg/dl Est Creatinine Clear Calc Drug Dose 27.6 ml/min 36.8 ml/min Estimated GFR () 16.2 22.9 Estimated GFR (Non- 14.0 19.8 BUN/Creatinine Ratio 19.3 22.7 Random Glucose 168 mg/dl 132 mg/dl Calcium Level 6.8 mg/dl 6.9 mg/dl Phosphorus Level 4.6 mg/dl Magnesium Level 1.8 mg/dl Test 12/15/16 21:26 12/16/16 05:23 Bedside Glucose 129 mg/dl White Blood Count 7.17 K/uL Red Blood Count 4.16 M/uL Hemoglobin 12.5 g/dL Hematocrit 37.4 % Mean Corpuscular Volume 89.9 fL Mean Corpuscular Hemoglobin 30.0 pg Mean Corpuscular Hemoglobin Concent 33.4 g/dl Platelet Count 155 K/uL Mean Platelet Volume 10.2 fL Neutrophils (%) (Auto) 82.6 % Lymphocytes (%) (Auto) 10.2 % Monocytes (%) (Auto) 6.8 % Eosinophils (%) (Auto) 0.0 % Basophils (%) (Auto) 0.0 % Neutrophils # (Auto) 5.92 K/uL Lymphocytes # (Auto) 0.73 K/uL Monocytes # (Auto) 0.49 K/uL Eosinophils # (Auto) 0.00 K/uL Basophils # (Auto) 0.00 K/uL RDW Standard Deviation 53.2 fL RDW Coefficient of Variation 16.2 % Immature Granulocyte % (Auto) 0.4 % Immature Granulocyte # (Auto) 0.03 K/uL Sodium Level 140 mmol/L Potassium Level 3.0 mmol/L Chloride Level 105 mmol/L Carbon Dioxide Level 24 mmol/L Anion Gap 11.0 mmol/L Blood Urea Nitrogen 66 mg/dl Creatinine 2.00 mg/dl Est Creatinine Clear Calc Drug Dose 61.0 ml/min Estimated GFR () 42.0 Estimated GFR (Non- 36.2 BUN/Creatinine Ratio 33.0 Random Glucose 129 mg/dl Calcium Level 6.7 mg/dl Phosphorus Level 2.0 mg/dl Magnesium Level 1.7 mg/dl Total Creatine Kinase 1107 U/L Albumin 2.3 gm/dl Assessment & Plan CGR-wih-wnitjjpo-creatinine improved quickly indicating more likely volume depletion rather than atn. have given aggressive fluids and no signs of volume overload at this time. continue the iv fluids at current rate, plan on decreasing rate tomorrow. spoke to patient about removing andres cathter. will wait 24 more hours and plan on removal tomorrow. Hypocalcemia-on vitamin d daily. calcium levels remain low and will check an ionized calcium tomorrow. hesitant to give more calcium with phos levels low. would like to replete the phosphorus before giving more calicum since iv calcium replacement will lower phos levels. hypophos-phos was high but has been cleared through the kidneys and through recieving iv calcium replacement. repleting now. Hypomag-repleting prn. overall, pt doing much better, weaned off pressors, tolerating iv fluids. plan on reducing fluids tomorrow and removing catheter tomorrow. continue to replete electrolytes.
[2016-12-16] MEDS: MAGNESIUM SULFATE 1GM / D5W 1 GM in PREMIXED IN D5W 100 ML IV SCH ×2 (08:54→10:59)
[2016-12-16] MEDS: NICOTINE 21 MG/24 HR TDSY TD SCH (08:57)
[2016-12-16] MEDS: PANTOprazole SOD 40 MG TAB PO SCH (08:58)
[2016-12-16] MEDS: ERGOCALCIFEROL 50,000 INTER.UNIT CAP PO SCH (08:58)
[2016-12-16] MEDS: HEPARIN SOD 5000 UNIT/0.5 ML CARP SQ SCH ×2 (08:58→20:55)
[2016-12-16] MEDS: DOCUSATE SODIUM 100 MG CAP PO SCH ×2 (08:59→20:51)
[2016-12-16] MEDS: LORAZEPAM 1 MG TAB PO SCH ×2 (09:04→20:51)
[2016-12-16] MEDS ORDERED: GABAPENTIN 800 MG TAB PO SCH (09:30)
--- NOTE | 2016-12-16 10:48 | Critical Care Progress Note ---
Critical Care Progress Note Date of Service Dec 16, 2016. ICU Day ICU Day Number: [address] Fontaine Subjective Feeing better today. - back and knee pain is well controlled but c/o headache and left great toe pain. denies fevers/chills, CP/SOB but has some cough Objective GENERAL: Patient is in no acute distress, obese HEENT: No acute trauma, normocephalic atraumatic, mucous membranes moist, no nasal congestion, no scleral icterus, right IJ in place NECK: No stridor, no adenopathy, no meningismus, trachea is midline. LUNGS: Clear to auscultation bilaterally, no wheeze, no rhonchi, breath sounds equal. HEART: Without murmurs gallops or rubs, regular rate and rhythm. ABDOMEN: Soft, nontender, bowel sounds positive, no hernias, no peritonitis. EXTREMITIES: No cyanosis or edema, full range of motion of all the joints without pain or difficulty, no signs for acute trauma. NEUROLOGIC: Oriented x 3, no acute motor or sensory deficits, no focal weakness. SKIN: No rash, no jaundice, no diaphoresis. Assessment & Plan 56 y/o M admitted to ICU after he presented with confusion which started 2 days [employer] after overdosing on Percocet prescribed for knee pain. was hypotensive on presentation with Systolic in 60s on arrival and was had COURTNEY with a Creatinine of 12. He has been getting pain medications for knee pain along with Synvisc injections and has been suing excessive amounts of Percocet. Doesnt take all his home medications as listed - will update list Neuro - pain control with morphine 1 mg q3h - now dc - switched to Sterling Chronic alcohol abuse/ sedatives : No signs of withdrawal for now - Monitor for withdrawal, alcohol withdrawal protocol with gabapentin - Lorazepam 1 mg BID Renal: - COURTNEY on CKD stage 3: creatine at baseline 1.5, on arrival 12, today at 2 - Nephrology consult- appreciate input - IVF Electrolytes: - Hypocalcemia: Ca at 6.7 - Hypophosphatemia: phos at 2 from 9.8 on presentation - Hypokalemia: K at 3 , Kphos 15 mmol - Hypomagnesemia: Mg at 1.7, 2 g Mgso4 added - Electrolytes later tonight CVS: Hypotension: BP over 120/80 - Levophed dc, continue IVF - Home benazepril/HCTZ and atenolol held - Echo 12/14: * The left ventricle is normal in size. * The LV wall motion is gross normal on limited evaluation. * No regional wall motion abnormalities noted. * The left ventricular ejection fraction is grossly normal, >65% * No hemodynamically significant valvular aortic stenosis. * There is no mitral valve stenosis. * There is no pericardial effusion. Resp: - Currently on Room air - CXR: No change in the cardiomegaly and suspected pulmonary edema. - Possible infiltrative process left lung: Rocephin day 2, Doxycycline day 2 - dc today clinically appears well and CXR doesnt show an infiltrate , monitor clinically and restart abx GI/FEN: - GERD: pantoprazole Endocrine: Panhypopituitarism s/p pituitary adenoma resection - hydrocortisone switched to 25 mg every 6 hours - somatropin 0.3 SQ Hypothyroidism : - levothyroxine 300 g by mouth daily Low testosterone: - testosterone injections Psych: Depression: - denies using amitriptyline and Zoloft at home Chronic pain: - Cymbalta currently held due to renal function PT/OT Heme: DVT prophylaxis: Heparin SQ Vascular access: Right IJ placed 12/14/2016, will likely dc later today Level IV: full resuscitation, no cardioversion Disposition: transfer to tele Resident Physician Supervision Note: I interviewed and examined the patient. Discussed with Dr. Mckeon and agree with findings and plan as documented in the note. Any exceptions or clarifications are listed here: The patient's care was discussed in detail on multidisciplinary rounds. I have reviewed the VS, labs, I/O, meds and radiograph from today. He is more alert today and tells me he only takes percocet to get him through his Simvisc injections - the last of which was a few weeks ago. He also admits to overuse of ibuprophen in the past and is sketchy about details of his med use. He has never been to a pain clinic. We are still trying to understand what he actually takes at home and Dr. Mckeon will add an addendum to this note after going over his meds with him one more time. Discussed also with pharmacy here who is looking into which prescriptions have been filled recently as well. His antibiotics have been discontinued - no infiltrate on cxr, no fever and normal WBC. He may be starting to produce some sputum - can continue to reassess and resume if clinical condition warrants. IVF were discontinued then resumed after reviewing Dr. Solo's note. Gabapentin dosing for alcohol withdrawal prophylaxis was adjusted upward based on improved Cr clearance. He has had one seizure, 3 months ago, and initially said he takes gabapentin for it - now tells me he takes gabapentin for pain and is not on anything for seizures. Taper hydrocortisone - consider changing to po tomorrow. Hydrocodone /acetaminophen ordered for pain 5/325mg q4h prn. PT/OT, keep andres for now and consider d/c central line later today after labs depending on how difficult peripheral access is. Overall, improving. Still watching for signs or symptoms of alcohol, opioid or benzo withdrawal. He is stable for transfer to the floor. Documented By: Maria De Jesus Fontaine Consults & Procedures Consultants: Nephrology Data Medications: Current Inpatient Medications Medications (Trade) Dose Ordered Sig/Hernandez Route Start Time Stop Time Status Last Admin Dose Admin Heparin Sodium (Porcine) (Heparin Sq 5000 Unit/0.5ml) 5,000 unit Q12H SQ 12/14/16 21:00 01/13/17 20:59 12/16/16 08:58 5,000 UNIT Miscellaneous Information (Order Awaiting Action) 1 ea QS N/A 12/14/16 16:00 01/13/17 15:59 Testosterone Cypionate 100 mg 100 mg We@0900 IM 12/17/16 09:00 01/16/17 08:59 Norepinephrine Bitartrate/ Dextrose (Levophed Inj/ D5W 500ml) 508 ml @ 0 mls/hr Q0M PRN IV 12/14/16 15:00 01/13/17 14:59 12/15/16 08:58 38.6 MLS/HR Ergocalciferol (Vitamin D Cap) 50,000 interunit DAILY@0900 PO 12/14/16 17:00 01/13/17 16:59 12/16/16 08:58 50,000 INTERUNIT Levothyroxine Sodium (Synthroid Tab) 300 mcg DAILYBB PO 12/15/16 10:00 01/14/17 09:59 12/16/16 06:13 300 MCG Docusate Sodium (coLACE CAP) 100 mg BID PO 12/15/16 21:00 01/14/17 20:59 Pantoprazole Sodium (Protonix Tab) 40 mg DAILY PO 12/16/16 09:00 01/15/17 08:59 12/16/16 08:58 40 MG Lorazepam (Ativan Tab) 1 mg BID PO 12/15/16 21:00 01/14/17 20:59 12/16/16 09:04 1 MG Morphine Sulfate (MoRPHine SULFATE INJ) 1 mg Q3H PRN IV 12/15/16 11:00 12/29/16 10:59 12/16/16 04:20 1 MG Multivitamins (Multivitamin Tab) 1 tab QAM PO 12/16/16 09:00 01/15/17 08:59 Thiamine HCl (Vitamin B-1 Tab) 100 mg QAM PO 12/16/16 09:00 01/15/17 08:59 Folic Acid (Folvite Tab) 1 mg QAM PO 12/16/16 09:00 01/15/17 08:59 Nicotine (Nicoderm Cq 21MG Patch) 1 patch QAM TD 12/16/16 09:00 01/15/17 08:59 12/16/16 08:57 1 PATCH Miscellaneous (Remove Nicoderm Patch) 1 ea HS N/A 12/15/16 21:00 01/14/17 20:59 12/15/16 19:55 1 EA Lorazepam 1 mg 1 mg ONE PRN IV 12/15/16 18:30 Potassium Phosphate 15 mmol/ Sodium Chloride 255 ml @ 88 mls/hr TODAY@0800 ONCE IV 12/16/16 08:00 12/16/16 10:53 12/16/16 08:54 88 MLS/HR Hydrocortisone Sodium Succinate/ Syringe (Solu-Cortef IV/ Syringe) 0.5 ml @ 4 mls/min Q6H IV 12/16/16 13:00 01/15/17 12:59 UNV Gabapentin (Neurontin Tab) 800 mg SEE PROTOCOL TEXT PO 12/16/16 09:30 01/15/17 09:29 UNV Acetaminophen/ Hydrocodone Bitart ([place]ter[place] 5/325 Tab) 1 tab Q4H PRN PO 12/16/16 10:30 12/30/16 10:29 UNV I & O: 24-Hour Column 12/16/16 07:59 Intake Total 7725 ml Output Total 6775 ml Balance 950 ml Vital Signs: Date Time Temp Pulse Resp B/P Pulse Ox O2 Delivery O2 Flow Rate FiO2 12/16/16 10:00 78 21 120/74 96 Room Air 12/16/16 08:00 Room Air 12/16/16 08:00 36.8 77 20 123/69 96 Room Air 12/16/16 06:09 68 16 97/54 92 Room Air 12/16/16 04:00 37.0 69 17 108/66 94 Room Air 12/16/16 04:00 94 Room Air 12/16/16 02:00 72 18 101/59 90 Room Air 12/16/16 00:00 37.1 76 18 107/62 94 Room Air 12/16/16 00:00 94 Room Air 12/15/16 22:00 74 20 103/60 94 Room Air 12/15/16 20:00 37.1 69 18 107/61 92 Room Air 12/15/16 20:00 92 Room Air 12/15/16 18:00 76 16 96/58 90 Room Air 12/15/16 16:00 Room Air 12/15/16 16:00 36.8 84 20 133/60 92 Room Air 12/15/16 14:00 78 16 111/71 92 Room Air 12/15/16 12:00 36.8 75 20 115/60 94 Nasal Cannula 2.0 12/15/16 12:00 Room Air Laboratory Results: Last 24 Hours Test 12/15/16 11:17 12/15/16 13:58 12/15/16 16:54 12/15/16 19:53 Bedside Glucose 119 mg/dl 166 mg/dl Sodium Level 136 mmol/L 137 mmol/L Potassium Level 3.3 mmol/L 3.2 mmol/L Chloride Level 100 mmol/L 100 mmol/L Carbon Dioxide Level 21 mmol/L 23 mmol/L Anion Gap 15.0 mmol/L 14.0 mmol/L Blood Urea Nitrogen 85 mg/dl 75 mg/dl Creatinine 4.40 mg/dl 3.30 mg/dl Est Creatinine Clear Calc Drug Dose 27.6 ml/min 36.8 ml/min Estimated GFR () 16.2 22.9 Estimated GFR (Non- 14.0 19.8 BUN/Creatinine Ratio 19.3 22.7 Random Glucose 168 mg/dl 132 mg/dl Calcium Level 6.8 mg/dl 6.9 mg/dl Phosphorus Level 4.6 mg/dl Magnesium Level 1.8 mg/dl Test 12/15/16 21:26 12/16/16 05:23 Bedside Glucose 129 mg/dl White Blood Count 7.17 K/uL Red Blood Count 4.16 M/uL Hemoglobin 12.5 g/dL Hematocrit 37.4 % Mean Corpuscular Volume 89.9 fL Mean Corpuscular Hemoglobin 30.0 pg Mean Corpuscular Hemoglobin Concent 33.4 g/dl Platelet Count 155 K/uL Mean Platelet Volume 10.2 fL Neutrophils (%) (Auto) 82.6 % Lymphocytes (%) (Auto) 10.2 % Monocytes (%) (Auto) 6.8 % Eosinophils (%) (Auto) 0.0 % Basophils (%) (Auto) 0.0 % Neutrophils # (Auto) 5.92 K/uL Lymphocytes # (Auto) 0.73 K/uL Monocytes # (Auto) 0.49 K/uL Eosinophils # (Auto) 0.00 K/uL Basophils # (Auto) 0.00 K/uL RDW Standard Deviation 53.2 fL RDW Coefficient of Variation 16.2 % Immature Granulocyte % (Auto) 0.4 % Immature Granulocyte # (Auto) 0.03 K/uL Sodium Level 140 mmol/L Potassium Level 3.0 mmol/L Chloride Level 105 mmol/L Carbon Dioxide Level 24 mmol/L Anion Gap 11.0 mmol/L Blood Urea Nitrogen 66 mg/dl Creatinine 2.00 mg/dl Est Creatinine Clear Calc Drug Dose 61.0 ml/min Estimated GFR () 42.0 Estimated GFR (Non- 36.2 BUN/Creatinine Ratio 33.0 Random Glucose 129 mg/dl Calcium Level 6.7 mg/dl Phosphorus Level 2.0 mg/dl Magnesium Level 1.7 mg/dl Total Creatine Kinase 1107 U/L Albumin 2.3 gm/dl
[2016-12-16] MEDS: MULTIVITAMIN TAB PO SCH (10:58)
[2016-12-16] MEDS: THIAMINE HCL 100 MG TAB PO SCH (10:58)
[2016-12-16] MEDS ORDERED: ACETAMINOPHEN 325 MG TAB PO ONE (11:15)
[2016-12-16] MEDS: GABAPENTIN 400MG Q6H DOSE PO SCH ×2 (11:32→18:28)
[2016-12-16] MEDS: HYDROCORTISONE IV 25 MG in SYRINGE 0 ML IV SCH ×2 (12:50→20:07)
[2016-12-16] MEDS: HYDROCODONE/ACETAMOPHEN 5/325MG TAB PO PRN ×2 (16:28→20:51)
[2016-12-16 16:52] LABS: BUN/CREATININE RATIO 39.3 (10-20); CALCIUM 7.1 mg/dl (8.5-10.1); CREATININE 1.4 mg/dl (0.60-1.40); MAGNESIUM 2.1 mg/dl (1.8-2.4); POTASSIUM 2.9 mmol/L (3.5-5.1)
[2016-12-16] MEDS ORDERED: POTASSIUM CHLORIDE 10 MEQ TABCR PO STA (17:09)
[2016-12-16] MEDS ORDERED: POTASSIUM CHLR 20 MEQ / WTR 20 MEQ in PREMIXED WATER 100 ML IV STA (17:09)
[2016-12-16 17:19] LABS: PHOSPHORUS 1.5 mg/dl (2.5-4.9)
[2016-12-16] MEDS ORDERED: POTASSIUM PHOSPHATE INJ 24 MMOL in SODIUM CHLORIDE 0.9% 500ML 500 ML IV SCH (18:00)
--- NOTE | 2016-12-16 20:49 | Progress Note ---
Internal Med Progress Note Date of Service: Dec 16, 2016. Provider Documentation: SUBJECTIVE: pt found sitting on chair complain of pain on rt knee , has warm compression placed no complain of sob No confusion -conversing appropriately OBJECTIVE: Vital Signs-as noted below Exam: General-no sign of distress , sitting on chair , watching TV Eyes-sclera non icteric Lungs-no rales or wheeze Heart-regular S1/S2 Abdomen-soft, non tender Extremities-rt knee mild tenderness, Neuro-AAo x3, no focal neurological deficit Lab data as noted below. ASSESSMENT & PLAN: CONFUSION /CHANGED MENTAL STATUS METABOLIC ENCEPHALOPATHY-likely form toxic metabolic from Narcotic pain medications /Percocet use - resolved-mental status improved to baseline, alert communicating - CT head negative for acute change Chronic alcohol abuse/ NARCOTIC /SEDATIVE MEDICATION USE : No signs of withdrawal for now - Monitor for withdrawal, alcohol withdrawal protocol with gabapentin - Lorazepam 1 mg BID SHOCK - likely Hypovolemic from Poor Oral Intake, Concurrent use of Diuretics improving Levophed weaned off continue IV fluids - 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, s/p Pituitary Resection -started on IV stress dose Hydrocortisone -appreciate input form Critical care -pt has improved hemodynamically -off pressors -wean off IV steroid, gradually transition to Oral steroid regimen ACUTE RENAL FAILURE ON CKD 3 - likely PreRenal baseline cr 1.5 Cr improved to ~2 with IV hydration ; cont IVF avoid NSAID's ,contrast studies - Renal US: no obstruction hold Lisinopril/HCTZ good urine output - Nephro on board-appreciate input HX PITUITARY ADENOMA S/P RESECTION - stress dose steroids as above - continue testosterone, Humatrope, levothyroxine HX SEIZURES - continue gabapentin however renally dosed HTN - currently hypotensive - outpatient regimen: benazepril/HCTZ, atenolol on hold -cont IV hydration DVT PROPHYLAXIS - SQ Heparin DISPOSITION lives with at home stable to be transferred out of ICU PT /OT eval prior to discharge Vital Signs: Date Time Temp Pulse Resp B/P Pulse Ox O2 Delivery O2 Flow Rate FiO2 12/16/16 20:01 36.7 74 20 167/90 100 Room Air 12/16/16 16:00 Room Air 12/16/16 13:51 36.9 79 24 94 12/16/16 12:00 36.9 79 24 134/81 94 Room Air 12/16/16 12:00 Room Air 12/16/16 10:00 78 21 120/74 96 Room Air 12/16/16 08:00 Room Air 12/16/16 08:00 Nasal Cannula 12/16/16 08:00 36.8 77 20 123/69 96 Room Air 12/16/16 06:09 68 16 97/54 92 Room Air 12/16/16 04:00 37.0 69 17 108/66 94 Room Air 12/16/16 04:00 94 Room Air 12/16/16 02:00 72 18 101/59 90 Room Air 12/16/16 00:00 37.1 76 18 107/62 94 Room Air 12/16/16 00:00 94 Room Air 12/15/16 22:00 74 20 103/60 94 Room Air Lab Results: Results Past 24 Hours Test 12/16/16 05:23 12/16/16 16:19 Range/Units White Blood Count 7.17 4.8-10.8 K/uL Red Blood Count 4.16 4.7-6.1 M/uL Hemoglobin 12.5 14.0-18.0 g/dL Hematocrit 37.4 42-52 % Mean Corpuscular Volume 89.9 80-100 fL Mean Corpuscular Hemoglobin 30.0 25-34 pg Mean Corpuscular Hemoglobin Concent 33.4 32-36 g/dl Platelet Count 155 130-400 K/uL Mean Platelet Volume 10.2 7.4-10.4 fL Neutrophils (%) (Auto) 82.6 % Lymphocytes (%) (Auto) 10.2 % Monocytes (%) (Auto) 6.8 % Eosinophils (%) (Auto) 0.0 % Basophils (%) (Auto) 0.0 % Neutrophils # (Auto) 5.92 1.4-6.5 K/uL Lymphocytes # (Auto) 0.73 1.2-3.4 K/uL Monocytes # (Auto) 0.49 0.11-0.59 K/uL Eosinophils # (Auto) 0.00 0-0.5 K/uL Basophils # (Auto) 0.00 0-0.2 K/uL RDW Standard Deviation 53.2 36.4-46.3 fL RDW Coefficient of Variation 16.2 11.5-14.5 % Immature Granulocyte % (Auto) 0.4 % Immature Granulocyte # (Auto) 0.03 0.00-0.02 K/uL Sodium Level 140 143 136-145 mmol/L Potassium Level 3.0 2.9 3.5-5.1 mmol/L Chloride Level 105 107 98-107 mmol/L Carbon Dioxide Level 24 24 21-32 mmol/L Anion Gap 11.0 12.0 3-11 mmol/L Blood Urea Nitrogen 66 55 7-18 mg/dl Creatinine 2.00 1.40 0.60-1.40 mg/dl Est Creatinine Clear Calc Drug Dose 61.0 87.2 ml/min Estimated GFR () 42.0 64.6 Estimated GFR (Non- 36.2 55.8 BUN/Creatinine Ratio 33.0 39.3 10-20 Random Glucose 129 102 70-99 mg/dl Calcium Level 6.7 7.1 8.5-10.1 mg/dl Phosphorus Level 2.0 1.5 2.5-4.9 mg/dl Magnesium Level 1.7 2.1 1.8-2.4 mg/dl Total Creatine Kinase 1107 39-308 U/L Albumin 2.3 3.4-5.0 gm/dl
[2016-12-16] MEDS ORDERED: LORAZEPAM 0.5 MG TAB PO STA (21:50)
[2016-12-17] MEDS: HYDROCODONE/ACETAMOPHEN 5/325MG TAB PO PRN ×5 (00:06→20:45)
[2016-12-17] MEDS: SODIUM CHLORIDE 0.9% 1000ML 1,000 ML IV SCH (01:40)
[2016-12-17] MEDS: GABAPENTIN 400MG Q8H DOSE PO SCH ×3 (01:40→18:34)
[2016-12-17] MEDS: HYDROCORTISONE IV 25 MG in SYRINGE 0 ML IV SCH ×4 (01:41→18:34)
[2016-12-17 03:34] VITALS: BP 134/81; PULSE 65; TEMP 36.5; O2SAT 96
[2016-12-17 05:32] LABS: BASO % 0.3 %; BASO ABS # 0.02 K/uL (0-0.2); COMPLETE YES; EOS % 0.9 %; IG% 2.1 %; LYMPH % 18.1 %; LYMPH ABS # 1.36 K/uL (1.2-3.4); MEAN CELL VOLUME 88.9 fL (80-100); MEAN CORPUSCULAR HEMOGLOBIN 29.8 pg (25-34); MEAN CORPUSCULAR HGB CONC 33.5 g/dl (32-36); MEAN PLATELET VOLUME 9.4 fL (7.4-10.4); MONO % 5.5 %; NEUT % 73.1 %; PLATELET COUNT 157 K/uL (130-400); RED BLOOD COUNT 4.16 M/uL (4.7-6.1); WHITE BLOOD COUNT 7.52 K/uL (4.8-10.8)
[2016-12-17] MEDS: LEVOTHYROXINE 150 MCG TAB PO SCH (06:06)
[2016-12-17 06:08] LABS: BUN/CREATININE RATIO 35.3 (10-20); CALCIUM 6.9 mg/dl (8.5-10.1); CREATININE 1.2 mg/dl (0.60-1.40); MAGNESIUM 1.8 mg/dl (1.8-2.4)
[2016-12-17 07:53] VITALS: BP 137/89; PULSE 65; TEMP 36.6; O2SAT 97
[2016-12-17] MEDS ORDERED: POTASSIUM PHOS 3 MMOL/1 ML INFUSION IV STA ×2 (07:55→19:14)
[2016-12-17] MEDS ORDERED: POTASSIUM CHLORIDE 10 MEQ TABCR PO STA (08:09)
--- NOTE | 2016-12-17 08:13 | Nephrology Progress Note ---
Nephrology Progress Note Date of Service: Dec 17, 2016. Subjective 56 yo male with atn/volume depletion from overmedication of pain medications contributing to hypotension and hypocalcemia with hyperphosphatemia. pt doing much better and now with low potassium, low phos, low calcium, low magnesium. pt continues to clinically improve and feels much, much better. eating well. Objective Date Time Temp Pulse Resp B/P Pulse Ox O2 Delivery O2 Flow Rate FiO2 12/17/16 07:53 36.6 65 20 137/89 97 Room Air 12/17/16 04:00 Room Air 12/17/16 03:34 36.5 65 22 134/81 96 Room Air 12/17/16 00:00 Room Air 12/16/16 23:25 36.6 77 21 142/76 92 Room Air 12/16/16 20:01 36.7 74 20 167/90 100 Room Air 12/16/16 20:00 Room Air 12/16/16 16:00 Room Air 12/16/16 13:51 36.9 79 24 94 12/16/16 12:00 36.9 79 24 134/81 94 Room Air 12/16/16 12:00 Room Air 12/16/16 10:00 78 21 120/74 96 Room Air Physical Exam: General-aaox3, obese Eyes-no scleral icterus ENT-mmm Neck-supple Lungs-clear Heart-regular Abdomen-bs+ s/nt/nd Extremities-no c/c/e Neuro-nonfocal Current Inpatient Medications Medications (Trade) Dose Ordered Sig/Hernandez Route Start Time Stop Time Status Last Admin Dose Admin Heparin Sodium (Porcine) (Heparin Sq 5000 Unit/0.5ml) 5,000 unit Q12H SQ 12/14/16 21:00 01/13/17 20:59 12/16/16 20:55 5,000 UNIT Miscellaneous Information (Order Awaiting Action) 1 ea QS N/A 12/14/16 16:00 01/13/17 15:59 12/16/16 08:00 1 EA Testosterone Cypionate (Depo-Testosterone Inj) 100 mg We@0900 IM 12/17/16 09:00 01/16/17 08:59 Ergocalciferol (Vitamin D Cap) 50,000 interunit DAILY@0900 PO 12/14/16 17:00 01/13/17 16:59 12/16/16 08:58 50,000 INTERUNIT Levothyroxine Sodium (Synthroid Tab) 300 mcg DAILYBB PO 12/15/16 10:00 01/14/17 09:59 12/17/16 06:06 300 MCG Docusate Sodium (coLACE CAP) 100 mg BID PO 12/15/16 21:00 01/14/17 20:59 12/16/16 20:51 100 MG Pantoprazole Sodium (Protonix Tab) 40 mg DAILY PO 12/16/16 09:00 01/15/17 08:59 12/16/16 08:58 40 MG Lorazepam (Ativan Tab) 1 mg BID PO 12/15/16 21:00 01/14/17 20:59 12/16/16 20:51 1 MG Morphine Sulfate (MoRPHine SULFATE INJ) 1 mg Q3H PRN IV 12/15/16 11:00 12/29/16 10:59 12/16/16 04:20 1 MG Multivitamins (Multivitamin Tab) 1 tab QAM PO 12/16/16 09:00 01/15/17 08:59 12/16/16 10:58 1 TAB Thiamine HCl (Vitamin B-1 Tab) 100 mg QAM PO 12/16/16 09:00 01/15/17 08:59 12/16/16 10:58 100 MG Folic Acid (Folvite Tab) 1 mg QAM PO 12/16/16 09:00 01/15/17 08:59 12/16/16 10:58 1 MG Nicotine (Nicoderm Cq 21MG Patch) 1 patch QAM TD 12/16/16 09:00 01/15/17 08:59 12/16/16 08:57 1 PATCH Miscellaneous (Remove Nicoderm Patch) 1 ea HS N/A 12/15/16 21:00 01/14/17 20:59 12/16/16 20:57 1 EA Lorazepam 1 mg 1 mg ONE PRN IV 12/15/16 18:30 Hydrocortisone Sodium Succinate/ Syringe (Solu-Cortef IV/ Syringe) 0.5 ml @ 4 mls/min Q6H IV 12/16/16 13:00 01/15/17 12:59 12/17/16 06:06 4 MLS/MIN Acetaminophen/ Hydrocodone Bitart ([place] 5/325 Tab) 1 tab Q4H PRN PO 12/16/16 10:30 12/30/16 10:29 12/17/16 06:25 1 TAB Gabapentin (Neurontin Cap) 400 mg Q8H PO 12/17/16 02:00 12/17/16 18:01 12/17/16 01:40 400 MG Gabapentin (Neurontin Cap) 400 mg Q12H PO 12/18/16 06:00 12/18/16 18:01 Gabapentin 400 mg 400 mg Q24H PO 12/19/16 18:00 12/19/16 18:01 Calcium Gluconate 2000 mg/Sodium Chloride 70 ml @ 140 mls/hr TODAY@0815 ONCE IV 12/17/16 08:15 12/17/16 08:44 Potassium Phosphate/Sodium Chloride (Potassium Phosphate Inj/Nss 250ml) 255 ml @ 127.5 mls/ hr TODAY@0845 IV 12/17/16 08:45 12/17/16 10:44 Last 24 Hours Test 12/16/16 16:19 12/17/16 05:20 Sodium Level 143 mmol/L 146 mmol/L Potassium Level 2.9 mmol/L 3.0 mmol/L Chloride Level 107 mmol/L 112 mmol/L Carbon Dioxide Level 24 mmol/L 23 mmol/L Anion Gap 12.0 mmol/L 11.0 mmol/L Blood Urea Nitrogen 55 mg/dl 42 mg/dl Creatinine 1.40 mg/dl 1.20 mg/dl Est Creatinine Clear Calc Drug Dose 87.2 ml/min 101.7 ml/min Estimated GFR () 64.6 77.9 Estimated GFR (Non- 55.8 67.2 BUN/Creatinine Ratio 39.3 35.3 Random Glucose 102 mg/dl 103 mg/dl Calcium Level 7.1 mg/dl 6.9 mg/dl Phosphorus Level 1.5 mg/dl Magnesium Level 2.1 mg/dl 1.8 mg/dl White Blood Count 7.52 K/uL Red Blood Count 4.16 M/uL Hemoglobin 12.4 g/dL Hematocrit 37.0 % Mean Corpuscular Volume 88.9 fL Mean Corpuscular Hemoglobin 29.8 pg Mean Corpuscular Hemoglobin Concent 33.5 g/dl Platelet Count 157 K/uL Mean Platelet Volume 9.4 fL Neutrophils (%) (Auto) 73.1 % Lymphocytes (%) (Auto) 18.1 % Monocytes (%) (Auto) 5.5 % Eosinophils (%) (Auto) 0.9 % Basophils (%) (Auto) 0.3 % Neutrophils # (Auto) 5.50 K/uL Lymphocytes # (Auto) 1.36 K/uL Monocytes # (Auto) 0.41 K/uL Eosinophils # (Auto) 0.07 K/uL Basophils # (Auto) 0.02 K/uL RDW Standard Deviation 53.2 fL RDW Coefficient of Variation 16.3 % Immature Granulocyte % (Auto) 2.1 % Immature Granulocyte # (Auto) 0.16 K/uL Nucleated RBC Absolute Count (auto) 0.04 K/uL Nucleated Red Blood Cells % 0.5 % Ionized Calcium 0.97 mmol/l Assessment & Plan EOL-dsi-rkkuviwx-creatinine has improved quickly from 12 to 1.2. will stop the iv fluids and remove the andres catheter. will take a couple days for the concentration gradient to re-equilibrate so may be losing electrolytes and requiring repletion. Hypocalcemia-on vitamin d daily. ionized calcium is low, will give 2 grams of calcium gluconate and recheck this afternoon. Hypophos-giving 15 mmol of kphos iv and to recheck this afternoon Hypokalemia-giving 40meq of kdur and getting k in the kphos. to recheck this afternoon.
[2016-12-17] MEDS ORDERED: CALCIUM GLUCONATE 10% 2,000 MG in SODIUM CHLORIDE 0.9% 50ML 50 ML IV ONE (08:15)
[2016-12-17] MEDS: TESTOSTERONE CYPIONATE IM 200 MG/ML VIAL IM SCH (08:34)
[2016-12-17] MEDS: MULTIVITAMIN TAB PO SCH (08:38)
[2016-12-17] MEDS: PANTOprazole SOD 40 MG TAB PO SCH (08:39)
[2016-12-17] MEDS: THIAMINE HCL 100 MG TAB PO SCH (08:39)
[2016-12-17] MEDS: NICOTINE 21 MG/24 HR TDSY TD SCH (08:40)
[2016-12-17] MEDS: DOCUSATE SODIUM 100 MG CAP PO SCH ×2 (08:42→20:44)
[2016-12-17] MEDS: HEPARIN SOD 5000 UNIT/0.5 ML CARP SQ SCH ×2 (08:44→20:47)
[2016-12-17] MEDS ORDERED: POTASSIUM PHOSPHATE INJ 15 MMOL in SODIUM CHLORIDE 0.9% 250ML 250 ML IV SCH (08:45)
[2016-12-17] MEDS: LORAZEPAM 1 MG TAB PO SCH ×2 (08:52→20:45)
[2016-12-17 10:53] VITALS: BP 135/80; PULSE 91; TEMP 37; O2SAT 92
[2016-12-17] MEDS: ERGOCALCIFEROL 50,000 INTER.UNIT CAP PO SCH (11:07)
[2016-12-17] MEDS ORDERED: GABAPENTIN 600MG X1 DOSE PO SCH (12:00)
[2016-12-17 15:09] VITALS: BP 165/86; PULSE 74; TEMP 36.9; O2SAT 96
[2016-12-17 16:56] LABS: BUN/CREATININE RATIO 25.2 (10-20); CALCIUM 7.6 mg/dl (8.5-10.1); CREATININE 1.3 mg/dl (0.60-1.40); MAGNESIUM 1.6 mg/dl (1.8-2.4); POTASSIUM 3.3 mmol/L (3.5-5.1)
[2016-12-17 17:08] LABS: PHOSPHORUS 1.5 mg/dl (2.5-4.9)
[2016-12-17 18:48] VITALS: BP 166/91; PULSE 79; TEMP 36.9; O2SAT 97
--- NOTE | 2016-12-17 19:17 | Progress Note ---
Internal Med Progress Note Date of Service: Dec 17, 2016. Provider Documentation: SUBJECTIVE: feels much better today has minimum pain on rt knee no fever or chills no confusion OBJECTIVE: Vital Signs-as noted below Exam: General-no sign of distress , Eyes-sclera non icteric Lungs-no rales or wheeze Heart-regular S1/S2 Abdomen-soft, non tender Extremities-rt knee mild tenderness-improved Neuro-AAo x3, no focal neurological deficit Lab data as noted below. ASSESSMENT & PLAN: CONFUSION /CHANGED MENTAL STATUS METABOLIC ENCEPHALOPATHY- -due to taking too many Narcotic pain meds ( Percocet ) hx of Alcohol abuse - resolved -mental status improved to baseline, alert communicating , oriented to time , place and person - CT head negative for acute change Chronic alcohol abuse/ NARCOTIC /SEDATIVE MEDICATION USE : no complain of agitation No signs of withdrawal for now - Monitor for withdrawal, alcohol withdrawal protocol with gabapentin - Lorazepam 1 mg BID HYPOTENSION ?SHOCK - likely Hypovolemic from Poor Oral Intake, Concurrent use of Diuretics required pressor support with Levophed weaned off -resolved , BP remains stable transferred out of ICU -IVF D/omero - 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, s/p Pituitary Resection -started on IV stress dose Hydrocortisone -ordered to wean down as -pt has improved hemodynamically -appreciate input form Critical care gradually transition to Oral steroid regimen in next 24-48 hrs LOW MG /K /PHOS : possible due to chronic alcohol abuse replaced cont to monitor lytes ACUTE RENAL FAILURE ON CKD 3 - likely PreRenal baseline cr 1.5 Cr improved to ~2 with IV hydration ; cont IVF avoid NSAID's ,contrast studies - Renal US: no obstruction hold Lisinopril/HCTZ good urine output - Nephro on board-appreciate input HX PITUITARY ADENOMA S/P RESECTION - stress dose steroids as above - continue testosterone, Humatrope, levothyroxine HX SEIZURES - continue gabapentin however renally dosed HTN - BP stable - outpatient regimen: benazepril/HCTZ on hold for COURTNEY -cont to monitor DVT PROPHYLAXIS - SQ Heparin DISPOSITION lives with at home PT/OT eval requested plan to discharge home when medically stable Vital Signs: Date Time Temp Pulse Resp B/P Pulse Ox O2 Delivery O2 Flow Rate FiO2 12/18/16 16:42 37.0 82 24 175/91 98 12/18/16 16:26 36.7 88 18 96 12/18/16 15:18 36.7 88 18 166/90 96 Room Air 12/18/16 12:00 96 Room Air 12/18/16 10:54 36.6 82 20 162/91 96 Room Air 12/18/16 10:13 80 97 12/18/16 08:00 95 Room Air 12/18/16 07:25 37.0 76 20 157/89 95 Room Air 12/18/16 04:00 Room Air 12/18/16 03:24 37.0 70 19 158/88 96 Room Air 12/18/16 00:01 37.0 74 20 166/91 95 Room Air 12/18/16 00:00 Room Air 12/17/16 20:00 Room Air 12/17/16 18:48 36.9 79 20 166/91 97 Room Air Lab Results: Results Past 24 Hours Test 12/18/16 05:20 Range/Units White Blood Count 10.75 4.8-10.8 K/uL Red Blood Count 4.38 4.7-6.1 M/uL Hemoglobin 12.7 14.0-18.0 g/dL Hematocrit 39.3 42-52 % Mean Corpuscular Volume 89.7 80-100 fL Mean Corpuscular Hemoglobin 29.0 25-34 pg Mean Corpuscular Hemoglobin Concent 32.3 32-36 g/dl RDW Standard Deviation 53.3 36.4-46.3 fL RDW Coefficient of Variation 16.4 11.5-14.5 % Platelet Count 202 130-400 K/uL Mean Platelet Volume 9.3 7.4-10.4 fL Nucleated RBC Absolute Count (auto) 0.31 0-0 K/uL Nucleated Red Blood Cells % 2.9 % Sodium Level 145 136-145 mmol/L Potassium Level 3.1 3.5-5.1 mmol/L Chloride Level 110 98-107 mmol/L Carbon Dioxide Level 26 21-32 mmol/L Anion Gap 9.0 3-11 mmol/L Blood Urea Nitrogen 23 7-18 mg/dl Creatinine 0.98 0.60-1.40 mg/dl Est Creatinine Clear Calc Drug Dose 126.0 ml/min Estimated GFR () 99.5 Estimated GFR (Non- 85.8 BUN/Creatinine Ratio 23.5 10-20 Random Glucose 70 70-99 mg/dl Calcium Level 7.3 8.5-10.1 mg/dl Phosphorus Level 1.7 2.5-4.9 mg/dl Magnesium Level 1.6 1.8-2.4 mg/dl
[2016-12-17] MEDS: POTASSIUM CHLR 10 MEQ / WTR 10 MEQ in PREMIXED WATER 100 ML IV SCH ×3 (19:57→21:59)
[2016-12-17] MEDS ORDERED: POTASSIUM PHOSPHATE INJ 9 MMOL in SODIUM CHLORIDE 0.9% 250ML 250 ML IV ONE (20:00)
[2016-12-17] MEDS ORDERED: MAGNESIUM SULFATE 1GM / D5W 1 GM in PREMIXED IN D5W 100 ML IV ONE (20:00)
[2016-12-18] VITALS (16 sets, daily range): BP systolic 155–177; BP diastolic 80–96; PULSE 70–95; TEMP 36.6–37; O2SAT 95–98
[2016-12-18] MEDS ORDERED: HYDROCORTISONE IV 25 MG in SYRINGE 0 ML IV SCH (06:00)
[2016-12-18 06:09] LABS: HEMATOCRIT 39.3 % (42-52); MEAN CELL VOLUME 89.7 fL (80-100); MEAN CORPUSCULAR HGB CONC 32.3 g/dl (32-36); MEAN PLATELET VOLUME 9.3 fL (7.4-10.4); PLATELET COUNT 202 K/uL (130-400); RED BLOOD COUNT 4.38 M/uL (4.7-6.1); WHITE BLOOD COUNT 10.75 K/uL (4.8-10.8)
[2016-12-18] MEDS: GABAPENTIN 400MG Q12H DOSE PO SCH ×2 (06:11→18:03)
[2016-12-18] MEDS: LEVOTHYROXINE 150 MCG TAB PO SCH (06:11)
[2016-12-18 06:41] LABS: BUN/CREATININE RATIO 23.5 (10-20); CALCIUM 7.3 mg/dl (8.5-10.1); CREATININE 0.98 mg/dl (0.60-1.40); MAGNESIUM 1.6 mg/dl (1.8-2.4); PHOSPHORUS 1.7 mg/dl (2.5-4.9); POTASSIUM 3.1 mmol/L (3.5-5.1)
[2016-12-18 07:11] LABS: COD UR NEGATIVE NG/ML (CUTOFF=50); HYDROCOD UR NEGATIVE NG/ML (CUTOFF=50); HYDROMOR UR NEGATIVE NG/ML (CUTOFF=50); MORPHINE UR NEGATIVE NG/ML (CUTOFF=50); NORHYDROCODONE CONF UR NEGATIVE NG/ML (CUTOFF=50); OXYMORPH UR 951 NG/ML (CUTOFF=50)
[2016-12-18] MEDS: LORAZEPAM 1 MG TAB PO SCH ×2 (07:44→20:30)
[2016-12-18] MEDS: HYDROCODONE/ACETAMOPHEN 5/325MG TAB PO PRN ×4 (07:44→21:14)
[2016-12-18] MEDS: ERGOCALCIFEROL 50,000 INTER.UNIT CAP PO SCH (07:46)
[2016-12-18] MEDS: PANTOprazole SOD 40 MG TAB PO SCH (07:46)
[2016-12-18] MEDS: MULTIVITAMIN TAB PO SCH (07:47)
[2016-12-18] MEDS: THIAMINE HCL 100 MG TAB PO SCH (07:47)
[2016-12-18] MEDS: DOCUSATE SODIUM 100 MG CAP PO SCH ×2 (07:48→20:30)
[2016-12-18] MEDS: NICOTINE 21 MG/24 HR TDSY TD SCH (07:49)
[2016-12-18] MEDS: HEPARIN SOD 5000 UNIT/0.5 ML CARP SQ SCH (07:50)
[2016-12-18] MEDS ORDERED: POTASSIUM PHOS 3 MMOL/1 ML INFUSION IV STA (09:18)
[2016-12-18] MEDS ORDERED: POTASSIUM CHLORIDE 20 MEQ TABCR PO ONE (09:30)
--- NOTE | 2016-12-18 09:31 | Nephrology Progress Note ---
Nephrology Progress Note Date of Service: Dec 18, 2016. Subjective 56 yo male with atn/volume depletion from overmedication of pain medications contributing to hypotension and hypocalcemia with hyperphosphatemia. pt urinating well. has issues with anxiety and he is speaking with his sister to help him work it out. Objective Date Time Temp Pulse Resp B/P Pulse Ox O2 Delivery O2 Flow Rate FiO2 12/18/16 07:25 37.0 76 20 157/89 95 Room Air 12/18/16 04:00 Room Air 12/18/16 03:24 37.0 70 19 158/88 96 Room Air 12/18/16 00:01 37.0 74 20 166/91 95 Room Air 12/18/16 00:00 Room Air 12/17/16 20:00 Room Air 12/17/16 18:48 36.9 79 20 166/91 97 Room Air 12/17/16 16:00 Room Air 12/17/16 15:09 36.9 74 20 165/86 96 Room Air 12/17/16 12:00 Room Air 12/17/16 10:53 37.0 91 20 135/80 92 Room Air Physical Exam: General-aaox3, obese Eyes-no scleral icterus ENT-mmm Neck-supple Lungs-cta Heart-regular Abdomen-bs+ s/nt/nd Extremities-+1 edema Neuro-nonfocal Current Inpatient Medications Medications (Trade) Dose Ordered Sig/Hernandez Route Start Time Stop Time Status Last Admin Dose Admin Heparin Sodium (Porcine) (Heparin Sq 5000 Unit/0.5ml) 5,000 unit Q12H SQ 12/14/16 21:00 01/13/17 20:59 12/18/16 07:50 5,000 UNIT Miscellaneous Information (Order Awaiting Action) 1 ea QS N/A 12/14/16 16:00 01/13/17 15:59 12/17/16 08:00 1 EA Testosterone Cypionate (Depo-Testosterone Inj) 100 mg We@0900 IM 12/17/16 09:00 01/16/17 08:59 12/17/16 08:34 100 MG Ergocalciferol (Vitamin D Cap) 50,000 interunit DAILY@0900 PO 12/14/16 17:00 01/13/17 16:59 12/18/16 07:46 50,000 INTERUNIT Levothyroxine Sodium (Synthroid Tab) 300 mcg DAILYBB PO 12/15/16 10:00 01/14/17 09:59 12/18/16 06:11 300 MCG Docusate Sodium (coLACE CAP) 100 mg BID PO 12/15/16 21:00 01/14/17 20:59 12/17/16 20:44 100 MG Pantoprazole Sodium (Protonix Tab) 40 mg DAILY PO 12/16/16 09:00 01/15/17 08:59 12/18/16 07:46 40 MG Lorazepam (Ativan Tab) 1 mg BID PO 12/15/16 21:00 01/14/17 20:59 12/18/16 07:44 1 MG Morphine Sulfate (MoRPHine SULFATE INJ) 1 mg Q3H PRN IV 12/15/16 11:00 12/29/16 10:59 12/16/16 04:20 1 MG Multivitamins (Multivitamin Tab) 1 tab QAM PO 12/16/16 09:00 01/15/17 08:59 12/18/16 07:47 1 TAB Thiamine HCl (Vitamin B-1 Tab) 100 mg QAM PO 12/16/16 09:00 01/15/17 08:59 12/18/16 07:47 100 MG Folic Acid (Folvite Tab) 1 mg QAM PO 12/16/16 09:00 01/15/17 08:59 12/18/16 07:47 1 MG Nicotine (Nicoderm Cq 21MG Patch) 1 patch QAM TD 12/16/16 09:00 01/15/17 08:59 12/18/16 07:49 1 PATCH Miscellaneous (Remove Nicoderm Patch) 1 ea HS N/A 12/15/16 21:00 01/14/17 20:59 12/17/16 20:46 1 EA Lorazepam (Ativan Inj) 1 mg ONE PRN IV 12/15/16 18:30 Acetaminophen/ Hydrocodone Bitart ([place] 5/325 Tab) 1 tab Q4H PRN PO 12/16/16 10:30 12/30/16 10:29 12/18/16 07:44 1 TAB Gabapentin (Neurontin Cap) 400 mg Q12H PO 12/18/16 06:00 12/18/16 18:01 12/18/16 06:11 400 MG Gabapentin 400 mg 400 mg Q24H PO 12/19/16 18:00 12/19/16 18:01 Hydrocortisone Sodium Succinate/ Syringe (Solu-Cortef IV/ Syringe) 0.5 ml @ 4 mls/min Q12H IV 12/18/16 06:00 01/17/17 05:59 12/18/16 06:11 4 MLS/MIN Potassium Phosphate (Potassium Phosphate Replacement) 30 mmol NOW STAT IV 12/18/16 09:18 12/18/16 09:19 UNV Potassium Chloride 40 meq 40 meq NOW ONCE PO 12/18/16 09:30 12/18/16 09:31 UNV Magnesium Sulfate 2 gm/Prmx 100 ml @ 100 mls/hr NOW ONCE IV 12/18/16 09:30 12/18/16 10:29 UNV Calcium Gluconate/ Sodium Chloride (Calcium Gluconate 10%/Nss 50ml) 70 ml @ 240 mls/hr NOW ONCE IV 12/18/16 09:30 12/18/16 09:47 UNV Last 24 Hours Test 12/17/16 16:15 12/18/16 05:20 Sodium Level 145 mmol/L 145 mmol/L Potassium Level 3.3 mmol/L 3.1 mmol/L Chloride Level 110 mmol/L 110 mmol/L Carbon Dioxide Level 23 mmol/L 26 mmol/L Anion Gap 12.0 mmol/L 9.0 mmol/L Blood Urea Nitrogen 33 mg/dl 23 mg/dl Creatinine 1.30 mg/dl 0.98 mg/dl Est Creatinine Clear Calc Drug Dose 93.9 ml/min 126.0 ml/min Estimated GFR () 70.7 99.5 Estimated GFR (Non- 61.0 85.8 BUN/Creatinine Ratio 25.2 23.5 Random Glucose 111 mg/dl 70 mg/dl Calcium Level 7.6 mg/dl 7.3 mg/dl Ionized Calcium 1.00 mmol/l Phosphorus Level 1.5 mg/dl 1.7 mg/dl Magnesium Level 1.6 mg/dl 1.6 mg/dl White Blood Count 10.75 K/uL Red Blood Count 4.38 M/uL Hemoglobin 12.7 g/dL Hematocrit 39.3 % Mean Corpuscular Volume 89.7 fL Mean Corpuscular Hemoglobin 29.0 pg Mean Corpuscular Hemoglobin Concent 32.3 g/dl RDW Standard Deviation 53.3 fL RDW Coefficient of Variation 16.4 % Platelet Count 202 K/uL Mean Platelet Volume 9.3 fL Nucleated RBC Absolute Count (auto) 0.31 K/uL Nucleated Red Blood Cells % 2.9 % Assessment & Plan EJF-cge-meomkjly-creatinine has improved quickly from 12 to 0.9. off fluids but starting to develop edema in the lower extremities. hesitant to give a dose of lasix till electrolytes are repleted. lungs cta. once electrolytes are better , will give a dose of lasix. Hypocalcemia-on vitamin d daily. ionized calcium low. will give 2 grams of calcium gluconate. Hypophos-phos levels are low and will give another 30mmol of kphos. Hypokalemia-giving additonal 40meq of kdur and should hopefully start to improve.
[2016-12-18] MEDS ORDERED: POTASSIUM PHOSPHATE INJ 30 MMOL in SODIUM CHLORIDE 0.9% 500ML 500 ML IV SCH (10:00)
[2016-12-18] MEDS ORDERED: CALCIUM GLUCONATE 10% 2,000 MG in SODIUM CHLORIDE 0.9% 50ML 50 ML IV ONE (10:00)
[2016-12-18] MEDS: MAGNESIUM SULFATE 1GM / D5W 1 GM in PREMIXED IN D5W 100 ML IV SCH ×2 (11:12→12:22)
[2016-12-18] MEDS ORDERED: GABAPENTIN 400MG X1 DOSE PO SCH (12:00)
--- NOTE | 2016-12-18 16:33 | Progress Note ---
Internal Med Progress Note Date of Service: Dec 18, 2016. Provider Documentation: SUBJECTIVE: walking in room , has minimum pain on rt knee no sign of pain or discomfort no agitation or sign of withdrawal no arrhythmia noted in tele OBJECTIVE: Vital Signs-as noted below Exam: General-no sign of distress , walking in room , conversing Eyes-sclera non icteric Lungs-no rales or wheeze Heart-regular S1/S2 Abdomen-soft, non tender Extremities-rt knee mild tenderness, Neuro-AAo x3, no focal neurological deficit Lab data as noted below. ASSESSMENT & PLAN: CONFUSION /CHANGED MENTAL STATUS METABOLIC ENCEPHALOPATHY- presented with hypotension /altered mental status likely form toxic metabolic from Narcotic pain medications /Percocet use required Pressor support for marked hypotension -admitted to ICU Rt IJ central line placed by ICU team - symptom resolved-mental status improved to baseline, alert communicating Acute renal failure /severe electrolyte derangement /hypotension corrected - CT head negative for acute change _d/w pt -can not recall how many Percocet he took admits of drinking heavily -aware that it has been a problem , can not afford to go to Alcohol rehab -allen not work / is the only person earning willing to have information /resources for Alcohol rehab will update CM Chronic alcohol abuse/ NARCOTIC /SEDATIVE MEDICATION USE : hx of group home alcohol abuse ; 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 , unable to keep track of his drinking habits - pt started on alcohol withdrawal protocol with gabapentin - no evidence of withdrawal -pt understands that -his excessive drinking may lead to life threatening consequences -wants to have follow up as out pt , does not think he can afford for inpatient Alcohol rehab 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 follow labs Nephrology following , appreciate input HYPOVOLUMIC SHOCK - likely Hypovolemic from Poor Oral Intake, Concurrent use of Diuretics -Presented with COURTNEY -Cr 12 required IV pressors -Levophed briefly in ICU , weaned off COURTNEY resolved with IV hydration Cr 0.9 now IVF D/omero out pt diuretics discontinued given pt's hx of ETOH abuse , binge drinking , severe COURTNEY on presentation -it may be prudent to have him off diuretics will D/w Nephrology - 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, s/p Pituitary Resection -started on IV stress dose Hydrocortisone in ICU -appreciate input form Critical care -pt has remains stable hemodynamically -weaned off IV steroid transitioned to Oral steroid regimen -PO Cortef 10 mg in AM /20 mg in PM cont on Levothyroxine testosterone replacement ACUTE RENAL FAILURE ON CKD 3 Cr was 12 on presentation - likely Pre Renal baseline cr 1.5 Cr improved to baseline avoid NSAID's ,contrast studies - Renal US: no obstruction d/ce Lisinopril/HCTZ good urine output - Nephro on board-appreciate input HX SEIZURES - continue gabapentin DEPRESSION /ANXIETY DISORDER : pt mentions of having ongoing depressive symptoms with hopelessness feels worse as he remains at home all the time lost his Job denies of any suicidal ideation does not have any hobby used to work with his guns -which are taken away since he is in probation starts drinking heavily every time he feels depressed Cymbalta resumed feels anxious /panic attack without his Diazepam Alcohol abuse high risk for abuse /over dose of BDZ at home - Psychiatry consulted -need recommendation for wean off BDZ and adjustment of SSRI for ongoing depression and anxiety symptom HTN - BP stable _Atenolol 50 mg daily resumed - outpatient regimen: benazepril/HCTZ, D/omero for COURTNEY - DVT PROPHYLAXIS - SQ Heparin DISPOSITION lives with at home stable to be transferred out of ICU PT /OT eval prior to discharge Vital Signs: Date Time Temp Pulse Resp B/P Pulse Ox O2 Delivery O2 Flow Rate FiO2 12/18/16 16:42 37.0 82 24 175/91 98 12/18/16 16:26 36.7 88 18 96 12/18/16 15:18 36.7 88 18 166/90 96 Room Air 12/18/16 12:00 96 Room Air 12/18/16 10:54 36.6 82 20 162/91 96 Room Air 12/18/16 10:13 80 97 12/18/16 08:00 95 Room Air 12/18/16 07:25 37.0 76 20 157/89 95 Room Air 12/18/16 04:00 Room Air 12/18/16 03:24 37.0 70 19 158/88 96 Room Air 12/18/16 00:01 37.0 74 20 166/91 95 Room Air 12/18/16 00:00 Room Air 12/17/16 20:00 Room Air 12/17/16 18:48 36.9 79 20 166/91 97 Room Air Lab Results: Results Past 24 Hours Test 12/18/16 05:20 Range/Units White Blood Count 10.75 4.8-10.8 K/uL Red Blood Count 4.38 4.7-6.1 M/uL Hemoglobin 12.7 14.0-18.0 g/dL Hematocrit 39.3 42-52 % Mean Corpuscular Volume 89.7 80-100 fL Mean Corpuscular Hemoglobin 29.0 25-34 pg Mean Corpuscular Hemoglobin Concent 32.3 32-36 g/dl RDW Standard Deviation 53.3 36.4-46.3 fL RDW Coefficient of Variation 16.4 11.5-14.5 % Platelet Count 202 130-400 K/uL Mean Platelet Volume 9.3 7.4-10.4 fL Nucleated RBC Absolute Count (auto) 0.31 0-0 K/uL Nucleated Red Blood Cells % 2.9 % Sodium Level 145 136-145 mmol/L Potassium Level 3.1 3.5-5.1 mmol/L Chloride Level 110 98-107 mmol/L Carbon Dioxide Level 26 21-32 mmol/L Anion Gap 9.0 3-11 mmol/L Blood Urea Nitrogen 23 7-18 mg/dl Creatinine 0.98 0.60-1.40 mg/dl Est Creatinine Clear Calc Drug Dose 126.0 ml/min Estimated GFR () 99.5 Estimated GFR (Non- 85.8 BUN/Creatinine Ratio 23.5 10-20 Random Glucose 70 70-99 mg/dl Calcium Level 7.3 8.5-10.1 mg/dl Phosphorus Level 1.7 2.5-4.9 mg/dl Magnesium Level 1.6 1.8-2.4 mg/dl
--- NOTE | 2016-12-18 17:08 | Discharge Instructions ---
Discharge Instructions Date of Service Dec 18, 2016. Admission Reason for Admission: SHOCK Discharge Discharge Diagnosis / Problem: DRUG OVERDOSE /ACUTE RENAL FAILURE /ALCHOHOL ABUSE Discharge Goals Goal(s): Increase independence, Improve disease control Activity Recommendations Activity Limitations: resume your previous activity . Instructions / Follow-Up Instructions / Follow-Up HOSPITAL FOLLOW UP WITH DR GALAVIZ ON Thursday12/29/16 @ 1: 10PM LAB WORK ; BASIC METABOLIC PANEL , MAGNESIUM , PHOS LEVEL IN 3 DAYS FOLLOW UP WITH [facility] FOR RESULT DO NOT TAKE ALEVE , NAPROXEN , IBUPROFEN , ADVIL -AVOID NSAID'S WILL CAUSE DAMAGE TO YOUR KIDNEY DO NOT DRINK ALCOHOL , NEED TO LIMIT PAIN AND ANXIETY MEDICATION FOR RISK OF DEPENDENCY AND OVERDOSE \\ Current Hospital Diet Patient's current hospital diet: Renal Diet Discharge Diet Recommended Diet: Regular Diet Pending Studies Studies pending at discharge: yes List of pending studies: LAB WORK : BASIC METABOLIC PANEL , MAGNESIUM , CALCIUM , PHOSPHORUS LEVEL Medical Emergencies . Who to Call and When: Medical Emergencies: If at any time you feel your situation is an emergency, please call 911 immediately. . Non-Emergent Contact Non-Emergency issues call your: Primary Care Provider . . "Provider Documentation" section prepared by Dasia Torres. VTE Core Measure Inpt VTE Proph given/why not?: Unfractionated heparin SQ
[2016-12-18 19:15] LABS: BUN/CREATININE RATIO 15.9 (10-20); CALCIUM 7.9 mg/dl (8.5-10.1); CREATININE 1.2 mg/dl (0.60-1.40); MAGNESIUM 1.8 mg/dl (1.8-2.4); POTASSIUM 3.3 mmol/L (3.5-5.1)
[2016-12-18] MEDS ORDERED: POTASSIUM CHLORIDE 10 MEQ TABCR PO STA (19:18)
[2016-12-18] MEDS: HydrALAZINE HCL 20 MG/ML VIAL IV. PRN (19:45)
[2016-12-18] MEDS: POT PHOSPHATE MONOBASIC W/ SOD TAB PO SCH ×2 (19:54→20:29)
[2016-12-18] MEDS ORDERED: NURSING VERBAL MED ORDER ONE (20:30)
[2016-12-18] MEDS: HYDROCORTISONE 10 MG TAB PO SCH (20:30)
[2016-12-18] MEDS: ZOLPIDEM TARTRATE 10 MG TAB PO PRN (20:42)
[2016-12-19] VITALS (7 sets, daily range): BP systolic 145–181; BP diastolic 76–97; PULSE 67–88; TEMP 36.5–36.9; O2SAT 94–97
[2016-12-19] MEDS: HYDROCODONE/ACETAMOPHEN 5/325MG TAB PO PRN ×5 (03:14→20:53)
[2016-12-19] MEDS: LEVOTHYROXINE 150 MCG TAB PO SCH (05:44)
[2016-12-19 06:59] LABS: BUN/CREATININE RATIO 14.2 (10-20); CALCIUM 7.5 mg/dl (8.5-10.1); MAGNESIUM 1.5 mg/dl (1.8-2.4); POTASSIUM 3.3 mmol/L (3.5-5.1)
[2016-12-19] MEDS ORDERED: POTASSIUM PHOS 3 MMOL/1 ML INFUSION IV STA (07:10)
[2016-12-19] MEDS ORDERED: CALCIUM GLUCONATE 10% 2,000 MG in SODIUM CHLORIDE 0.9% 50ML 50 ML IV ONE (07:15)
[2016-12-19] MEDS ORDERED: POTASSIUM CHLORIDE 20 MEQ TABCR PO ONE (07:15)
--- NOTE | 2016-12-19 07:21 | Nephrology Progress Note ---
Nephrology Progress Note Date of Service: Dec 19, 2016. Subjective 56 yo male with atn/volume depletion from overmedication of pain medications contributing to hypotension and hypocalcemia with hyperphosphatemia. pt having anxiety which is chronic. also dealing with knee pain and headaches. walking around ok. Objective Date Time Temp Pulse Resp B/P Pulse Ox O2 Delivery O2 Flow Rate FiO2 12/19/16 00:06 36.9 88 18 160/97 95 Room Air 12/19/16 00:00 Room Air 12/18/16 22:15 91 155/82 12/18/16 19:52 93 16 172/80 96 Room Air 12/18/16 19:35 87 18 176/89 97 Room Air 12/18/16 19:20 95 16 169/96 98 12/18/16 19:05 37.0 85 20 177/89 96 Room Air 12/18/16 16:45 Room Air 12/18/16 16:42 37.0 82 24 175/91 98 12/18/16 16:26 36.7 88 18 96 12/18/16 16:20 95 16 169/96 98 12/18/16 15:18 36.7 88 18 166/90 96 Room Air 12/18/16 12:00 96 Room Air 12/18/16 10:54 36.6 82 20 162/91 96 Room Air 12/18/16 10:13 80 97 12/18/16 08:00 95 Room Air 12/18/16 07:25 37.0 76 20 157/89 95 Room Air Physical Exam: General-aaox3, obese Eyes-no scleral icterus ENT-mmm Neck-supple Lungs-slight end expiratory wheeze Heart-rrr Abdomen-bs+ s/nt/nd Extremities-mild edema Neuro-nonfocal Current Inpatient Medications Medications (Trade) Dose Ordered Sig/Hernandez Route Start Time Stop Time Status Last Admin Dose Admin Heparin Sodium (Porcine) (Heparin Sq 5000 Unit/0.5ml) 5,000 unit Q12H SQ 12/14/16 21:00 01/13/17 20:59 Future Hold 12/18/16 07:50 5,000 UNIT Miscellaneous Information (Order Awaiting Action) 1 ea QS N/A 12/14/16 16:00 01/13/17 15:59 12/18/16 11:29 1 EA Testosterone Cypionate (Depo-Testosterone Inj) 100 mg We@0900 IM 12/17/16 09:00 01/16/17 08:59 12/17/16 08:34 100 MG Ergocalciferol (Vitamin D Cap) 50,000 interunit DAILY@0900 PO 12/14/16 17:00 01/13/17 16:59 12/18/16 07:46 50,000 INTERUNIT Levothyroxine Sodium (Synthroid Tab) 300 mcg DAILYBB PO 12/15/16 10:00 01/14/17 09:59 12/19/16 05:44 300 MCG Docusate Sodium (coLACE CAP) 100 mg BID PO 12/15/16 21:00 01/14/17 20:59 12/17/16 20:44 100 MG Pantoprazole Sodium (Protonix Tab) 40 mg DAILY PO 12/16/16 09:00 01/15/17 08:59 12/18/16 07:46 40 MG Lorazepam (Ativan Tab) 1 mg BID PO 12/15/16 21:00 01/14/17 20:59 12/18/16 20:30 1 MG Morphine Sulfate (MoRPHine SULFATE INJ) 1 mg Q3H PRN IV 12/15/16 11:00 12/29/16 10:59 12/16/16 04:20 1 MG Multivitamins (Multivitamin Tab) 1 tab QAM PO 12/16/16 09:00 01/15/17 08:59 12/18/16 07:47 1 TAB Thiamine HCl (Vitamin B-1 Tab) 100 mg QAM PO 12/16/16 09:00 01/15/17 08:59 12/18/16 07:47 100 MG Folic Acid (Folvite Tab) 1 mg QAM PO 12/16/16 09:00 01/15/17 08:59 12/18/16 07:47 1 MG Nicotine (Nicoderm Cq 21MG Patch) 1 patch QAM TD 12/16/16 09:00 01/15/17 08:59 12/18/16 07:49 1 PATCH Miscellaneous (Remove Nicoderm Patch) 1 ea HS N/A 12/15/16 21:00 01/14/17 20:59 12/18/16 20:30 1 EA Lorazepam (Ativan Inj) 1 mg ONE PRN IV 12/15/16 18:30 Acetaminophen/ Hydrocodone Bitart ([place] 5/325 Tab) 1 tab Q4H PRN PO 12/16/16 10:30 12/30/16 10:29 12/19/16 03:14 1 TAB Gabapentin (Neurontin Cap) 400 mg Q24H PO 12/19/16 18:00 12/19/16 18:01 Atenolol (Tenormin Tab) 50 mg DAILY PO 12/19/16 09:00 01/18/17 08:59 Duloxetine HCl (Cymbalta Cap) 30 mg DAILY PO 12/19/16 09:00 01/18/17 08:59 Duloxetine HCl (Cymbalta Cap) 60 mg DAILY PO 12/19/16 09:00 01/18/17 08:59 Hydrocortisone (Cortef Tab) 10 mg QPM PO 12/18/16 21:00 01/17/17 20:59 12/18/16 20:30 10 MG Hydrocortisone (Cortef Tab) 20 mg QAM PO 12/19/16 09:00 01/18/17 08:59 Zolpidem Tartrate (Ambien Tab) 10 mg HS PRN PO 12/18/16 17:00 01/17/17 16:59 12/18/16 20:42 10 MG Hydralazine HCl (HydrALAZINE INJ) 10 mg Q8 PRN IV. 12/18/16 19:15 01/17/17 19:14 12/18/16 19:45 10 MG Potassium/ Phosphorus/Sodium (Phospha 250 Neutral 155-852-130 Mg) 2 tab QID PO 12/18/16 19:30 01/17/17 19:29 12/18/16 20:29 2 TAB Potassium Phosphate (Potassium Phosphate Replacement) 15 mmol NOW STAT IV 12/19/16 07:10 12/19/16 07:11 UNV Potassium Chloride 40 meq 40 meq NOW ONCE PO 12/19/16 07:15 12/19/16 07:16 UNV Calcium Gluconate 2000 mg/Sodium Chloride 70 ml @ 240 mls/hr NOW ONCE IV 12/19/16 07:15 12/19/16 07:32 Potassium Phosphate/Sodium Chloride (Potassium Phosphate Inj/Nss 250ml) 255 ml @ 102 mls/hr TODAY@0800 ONCE IV 12/19/16 08:00 12/19/16 10:29 Last 24 Hours Test 12/18/16 18:45 12/19/16 06:02 Sodium Level 144 mmol/L 146 mmol/L Potassium Level 3.3 mmol/L 3.3 mmol/L Chloride Level 110 mmol/L 111 mmol/L Carbon Dioxide Level 25 mmol/L 26 mmol/L Anion Gap 9.0 mmol/L 9.0 mmol/L Blood Urea Nitrogen 19 mg/dl 14 mg/dl Creatinine 1.20 mg/dl 1.00 mg/dl Est Creatinine Clear Calc Drug Dose 102.9 ml/min 122.5 ml/min Estimated GFR () 77.9 97.1 Estimated GFR (Non- 67.2 83.8 BUN/Creatinine Ratio 15.9 14.2 Random Glucose 85 mg/dl 88 mg/dl Calcium Level 7.9 mg/dl 7.5 mg/dl Ionized Calcium 1.04 mmol/l Phosphorus Level 2.0 mg/dl 2.0 mg/dl Magnesium Level 1.8 mg/dl 1.5 mg/dl Assessment & Plan QEG-wcv-nhlfptud-creatinine has improved back to baseline. Hypocalcemia-on vitamin d daily. continue to give calcium supplementation iv. Hypophos-phos levels are slowly improving. would give additional 15 mmol of kphos today. Hypokalemia-k continue to be low, to give additional 40meq of kdur. htn-to restart lisinopril. continue to hold hctz with the low potassium.
[2016-12-19] MEDS: LORAZEPAM 1 MG TAB PO SCH ×2 (07:43→20:53)
[2016-12-19] MEDS: HYDROCORTISONE 10 MG TAB PO SCH ×2 (07:44→20:52)
[2016-12-19] MEDS: POT PHOSPHATE MONOBASIC W/ SOD TAB PO SCH ×4 (07:44→20:52)
[2016-12-19] MEDS: DOCUSATE SODIUM 100 MG CAP PO SCH ×2 (07:44→20:54)
[2016-12-19] MEDS: PANTOprazole SOD 40 MG TAB PO SCH (07:45)
[2016-12-19] MEDS: THIAMINE HCL 100 MG TAB PO SCH (07:45)
[2016-12-19] MEDS: MULTIVITAMIN TAB PO SCH (07:45)
[2016-12-19] MEDS: ERGOCALCIFEROL 50,000 INTER.UNIT CAP PO SCH (07:45)
[2016-12-19] MEDS: NICOTINE 21 MG/24 HR TDSY TD SCH (07:46)
[2016-12-19] MEDS: LISINOPRIL 20 MG TAB PO SCH (07:57)
[2016-12-19] MEDS ORDERED: POTASSIUM PHOSPHATE INJ 15 MMOL in SODIUM CHLORIDE 0.9% 250ML 250 ML IV ONE (08:00)
[2016-12-19] MEDS ORDERED: DULOXETINE HCL 60 MG CAP PO SCH (09:00)
[2016-12-19] MEDS ORDERED: DULOXETINE (CYMBALTA) 30 MG CAP PO SCH (09:00)
[2016-12-19] MEDS ORDERED: ACETAMINOPHEN 325 MG TAB PO PRN (11:15)
[2016-12-19] MEDS ORDERED: GABAPENTIN 200MG X1 DOSE PO ONE (12:00)
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
[2016-12-19] MEDS ORDERED: LORAZEPAM INJ 1 MG in SYRINGE 0.5 ML IV PRN (17:30)
[2016-12-19] MEDS ORDERED: GABAPENTIN 400MG X1 DOSE PO SCH (18:00)
[2016-12-19] MEDS ORDERED: FLV1 PO (20:55)
[2016-12-19] MEDS ORDERED: CYM60 PO (20:55)
[2016-12-19] MEDS ORDERED: THM100 PO (20:55)
--- NOTE | 2016-12-19 21:13 | Progress Note ---
Internal Med Progress Note Date of Service: Dec 19, 2016. Provider Documentation: SUBJECTIVE: awake and alert , offers no complain wants to be discharged home discussed again regarding issues related to Alcohol and prescription drug abuse pt is aware of the potential life threatening condition that it may lead to willing to seek for help on discharge pt is given information regarding inpatient Alcohol rehab /referral made he and his will look into options and which one of the facility will accept his insurance OBJECTIVE: Vital Signs-as noted below Exam: General-no sign of distress , awake and alert Eyes-sclera non icteric Lungs-no rales or wheeze Heart-regular S1/S2 Abdomen-soft, non tender Extremities-rt knee mild tenderness, redness on rt 2nd toe with swelling and tenderness Neuro-AAo x3, no focal neurological deficit Lab data as noted below. ASSESSMENT & PLAN: CONFUSION /CHANGED MENTAL STATUS METABOLIC ENCEPHALOPATHY- resolved presented with hypotension /altered mental status likely form toxic metabolic from Narcotic pain medications /Percocet use required Pressor support for marked hypotension -admitted to ICU Rt IJ central line placed by ICU team -removed - symptom resolved-mental status improved to baseline, alert communicating Acute renal failure /severe electrolyte derangement /hypotension corrected - CT head negative for acute change _d/w pt -can not recall how many Percocet he took admits of drinking heavily -aware that it has been a problem , can not afford to go to Alcohol rehab -does not work / is the only person earning pt given information /resources for Alcohol rehab willing to go to Alcohol rehab as out patient if insurance covers Chronic alcohol abuse/ NARCOTIC /SEDATIVE MEDICATION USE : hx of senior care alcohol abuse ; 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 . 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 follow labs Nephrology following , appreciate input HYPOVOLUMIC SHOCK -resolved, BP remains stable - likely Hypovolemic from Poor Oral Intake, Concurrent use of Diuretics -Presented with COURTNEY -Cr 12 required IV pressors -Levophed briefly in ICU , weaned off COURTNEY resolved with IV hydration Cr 0.9 now IVF D/omero given pt's hx of ETOH abuse , binge drinking , severe COURTNEY on presentation -it may be prudent to have him off diuretics Atenolol resumed , hold off HCTZ for persisted hypokalemia - 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, s/p Pituitary Resection -started on IV stress dose Hydrocortisone in ICU -appreciate input form Critical care -pt has remains stable hemodynamically on Oral steroid regimen -PO Cortef 10 mg in AM /20 mg in PM cont on Levothyroxine testosterone replacement ACUTE RENAL FAILURE ON CKD 3 Cr was 12 on presentation - likely Pre Renal baseline cr 1.5 Cr improved to baseline avoid NSAID's ,contrast studies - Renal US: no obstruction Lisinopril resumed cont to hold HCTZ for persisted hypokalemia - Nephro on board-appreciate input HX SEIZURES - continue gabapentin -no seizure episode noted DEPRESSION /ANXIETY DISORDER : pt mentions of having ongoing depressive symptoms with hopelessness feels worse as he remains at home all the time lost his Job denies of any suicidal ideation does not have any hobby used to work with his guns -which are taken away since he is in probation starts drinking heavily every time he feels depressed Cymbalta resumed feels anxious /panic attack without his Diazepam Alcohol abuse high risk for abuse /over dose of BDZ at home - Psychiatry consulted -appreciate input increased Cymbalta to 120 mg PO daily pt showing evidence of prescription controlled substance abuse -getting prescription for BDZ form different providers pt will not be prescribed any controlled medications during hospital discharge hospital records /psychiatry evaluation faxed to pt's psychiatrist Dr Rodriguez pt should receive medications form one provide -preferably from his Psychiatrist to prevent abuse /misuse will notify pt's Family Physician -will benefit form Contract for narcotics and BDZ HTN - BP stable _Atenolol 50 mg daily resumed -resumed ACEI DVT PROPHYLAXIS - SQ Heparin DISPOSITION lives with at home possible discharge home tomorrow pt will need continued followup with His Psychiatrist as out pt for depression / anxiety management will benefit form out pt Psychotherapy to address prescription medications dependency informations given/Referral made for out pt Alcohol rehab Vital Signs: Date Time Temp Pulse Resp B/P Pulse Ox O2 Delivery O2 Flow Rate FiO2 12/19/16 17:15 67 145/76 12/19/16 16:00 Room Air 12/19/16 14:35 36.5 70 17 160/80 97 Room Air 12/19/16 09:45 157/85 12/19/16 08:00 94 Room Air 12/19/16 07:39 36.6 71 17 181/93 94 Room Air 12/19/16 00:06 36.9 88 18 160/97 95 Room Air 12/19/16 00:00 Room Air 12/18/16 22:15 91 155/82 Lab Results: Results Past 24 Hours Test 12/19/16 06:02 12/19/16 07:45 12/19/16 11:38 Range/Units Sodium Level 146 136-145 mmol/L Potassium Level 3.3 3.5-5.1 mmol/L Chloride Level 111 98-107 mmol/L Carbon Dioxide Level 26 21-32 mmol/L Anion Gap 9.0 3-11 mmol/L Blood Urea Nitrogen 14 7-18 mg/dl Creatinine 1.00 0.60-1.40 mg/dl Est Creatinine Clear Calc Drug Dose 122.5 ml/min Estimated GFR () 97.1 Estimated GFR (Non- 83.8 BUN/Creatinine Ratio 14.2 10-20 Random Glucose 88 70-99 mg/dl Calcium Level 7.5 8.5-10.1 mg/dl Phosphorus Level 2.0 2.5-4.9 mg/dl Magnesium Level 1.5 1.8-2.4 mg/dl Bedside Glucose 74 85 70-99 mg/dl
[2016-12-19] MEDS: ZOLPIDEM TARTRATE 10 MG TAB PO PRN (23:22)
[2016-12-19] MEDS: HydrALAZINE HCL 20 MG/ML VIAL IV. PRN (23:22)
[2016-12-20] VITALS (8 sets, daily range): BP systolic 137–192; BP diastolic 76–92; PULSE 70–84; TEMP 36.7–36.8; O2SAT 96
[2016-12-20] MEDS: HYDROCODONE/ACETAMOPHEN 5/325MG TAB PO PRN ×5 (03:02→19:54)
[2016-12-20] MEDS: LEVOTHYROXINE 150 MCG TAB PO SCH (06:24)
[2016-12-20] MEDS: DULOXETINE HCL 60 MG CAP PO SCH (07:35)
[2016-12-20] MEDS: LORAZEPAM 1 MG TAB PO SCH ×2 (07:35→20:52)
[2016-12-20] MEDS: HYDROCORTISONE 10 MG TAB PO SCH ×2 (07:36→20:54)
[2016-12-20] MEDS: THIAMINE HCL 100 MG TAB PO SCH (07:36)
[2016-12-20] MEDS: POT PHOSPHATE MONOBASIC W/ SOD TAB PO SCH ×4 (07:36→20:55)
[2016-12-20] MEDS: MULTIVITAMIN TAB PO SCH (07:36)
[2016-12-20] MEDS: PANTOprazole SOD 40 MG TAB PO SCH (07:36)
[2016-12-20] MEDS: ERGOCALCIFEROL 50,000 INTER.UNIT CAP PO SCH (07:36)
[2016-12-20] MEDS: LISINOPRIL 20 MG TAB PO SCH (07:36)
[2016-12-20] MEDS: DOCUSATE SODIUM 100 MG CAP PO SCH ×2 (07:36→20:54)
[2016-12-20] MEDS: NICOTINE 21 MG/24 HR TDSY TD SCH (07:37)
[2016-12-20 08:52] LABS: BUN/CREATININE RATIO 11.2 (10-20); CALCIUM 7.8 mg/dl (8.5-10.1); CREATININE 0.92 mg/dl (0.60-1.40); MAGNESIUM 1.3 mg/dl (1.8-2.4); PHOSPHORUS 2.3 mg/dl (2.5-4.9); POTASSIUM 3.9 mmol/L (3.5-5.1)
--- NOTE | 2016-12-20 09:14 | Nephrology Progress Note ---
Nephrology Progress Note Date of Service: Dec 20, 2016. Subjective 56 yo male with atn/volume depletion from overmedication of pain medications contributing to hypotension and hypocalcemia with hyperphosphatemia. pt using an ice pack to help with his headaches. pt interested in going home. restarted saige yesterday to help with bp control. Objective Date Time Temp Pulse Resp B/P Pulse Ox O2 Delivery O2 Flow Rate FiO2 12/20/16 08:58 96 Room Air 12/20/16 07:53 36.8 84 20 192/92 96 Room Air 12/19/16 23:59 Room Air 12/19/16 23:29 36.9 76 20 168/89 95 Room Air 12/19/16 20:00 Room Air 12/19/16 17:15 67 145/76 12/19/16 16:00 Room Air 12/19/16 14:35 36.5 70 17 160/80 97 Room Air 12/19/16 09:45 157/85 Physical Exam: General-aaox3, obese Eyes-no scleral icterus ENT-mmm Neck-supple Lungs-cta Heart-regular Abdomen-bs+ s/nt/nd Extremities-mild edema Neuro-nonfocal Current Inpatient Medications Medications (Trade) Dose Ordered Sig/Hernandez Route Start Time Stop Time Status Last Admin Dose Admin Heparin Sodium (Porcine) (Heparin Sq 5000 Unit/0.5ml) 5,000 unit Q12H SQ 12/14/16 21:00 01/13/17 20:59 Future Hold 12/18/16 07:50 5,000 UNIT Miscellaneous Information (Order Awaiting Action) 1 ea QS N/A 12/14/16 16:00 01/13/17 15:59 12/18/16 11:29 1 EA Testosterone Cypionate (Depo-Testosterone Inj) 100 mg We@0900 IM 12/17/16 09:00 01/16/17 08:59 12/17/16 08:34 100 MG Ergocalciferol (Vitamin D Cap) 50,000 interunit DAILY@0900 PO 12/14/16 17:00 01/13/17 16:59 12/20/16 07:36 50,000 INTERUNIT Levothyroxine Sodium (Synthroid Tab) 300 mcg DAILYBB PO 12/15/16 10:00 01/14/17 09:59 12/20/16 06:24 300 MCG Docusate Sodium (coLACE CAP) 100 mg BID PO 12/15/16 21:00 01/14/17 20:59 12/20/16 07:36 100 MG Pantoprazole Sodium (Protonix Tab) 40 mg DAILY PO 12/16/16 09:00 01/15/17 08:59 12/20/16 07:36 40 MG Lorazepam (Ativan Tab) 1 mg BID PO 12/15/16 21:00 01/14/17 20:59 12/20/16 07:35 1 MG Morphine Sulfate (MoRPHine SULFATE INJ) 1 mg Q3H PRN IV 12/15/16 11:00 12/29/16 10:59 12/16/16 04:20 1 MG Multivitamins (Multivitamin Tab) 1 tab QAM PO 12/16/16 09:00 01/15/17 08:59 12/20/16 07:36 1 TAB Thiamine HCl (Vitamin B-1 Tab) 100 mg QAM PO 12/16/16 09:00 01/15/17 08:59 12/20/16 07:36 100 MG Folic Acid (Folvite Tab) 1 mg QAM PO 12/16/16 09:00 01/15/17 08:59 12/20/16 07:36 1 MG Nicotine (Nicoderm Cq 21MG Patch) 1 patch QAM TD 12/16/16 09:00 01/15/17 08:59 12/20/16 07:37 1 PATCH Miscellaneous (Remove Nicoderm Patch) 1 ea HS N/A 12/15/16 21:00 01/14/17 20:59 12/19/16 20:56 1 EA Acetaminophen/ Hydrocodone Bitart ([place] 5/325 Tab) 1 tab Q4H PRN PO 12/16/16 10:30 12/30/16 10:29 12/20/16 06:40 1 TAB Atenolol (Tenormin Tab) 50 mg DAILY PO 12/19/16 09:00 01/18/17 08:59 12/20/16 07:36 50 MG Hydrocortisone (Cortef Tab) 10 mg QPM PO 12/18/16 21:00 01/17/17 20:59 12/19/16 20:52 10 MG Hydrocortisone (Cortef Tab) 20 mg QAM PO 12/19/16 09:00 01/18/17 08:59 12/20/16 07:36 20 MG Zolpidem Tartrate (Ambien Tab) 10 mg HS PRN PO 12/18/16 17:00 01/17/17 16:59 12/19/16 23:22 10 MG Hydralazine HCl (HydrALAZINE INJ) 10 mg Q8 PRN IV. 12/18/16 19:15 01/17/17 19:14 12/19/16 23:22 10 MG Potassium/ Phosphorus/Sodium (Phospha 250 Neutral 155-852-130 Mg) 2 tab QID PO 12/18/16 19:30 01/17/17 19:29 12/20/16 07:36 2 TAB Lisinopril (Zestril Tab) 20 mg QAM PO 12/19/16 09:00 01/18/17 08:59 12/20/16 07:36 20 MG Acetaminophen (Tylenol Tab) 650 mg Q4H PRN PO 12/19/16 11:15 01/18/17 11:14 Duloxetine HCl 120 mg 120 mg QAM PO 12/20/16 09:00 01/19/17 08:59 12/20/16 07:35 120 MG Lorazepam 1 mg/ Syringe 1 ml @ 1 mls/min ONE PRN IV 12/19/16 17:30 Magnesium Sulfate/ Prmx (Magnesium Sulfate/Premixed D5W) 100 ml @ 100 mls/hr Q1H IV 12/20/16 09:30 12/20/16 12:29 Potassium/ Phosphorus/Sodium 2 tab 2 tab QID PO 12/20/16 13:00 01/19/17 12:59 UNV Calcium Gluconate/ Sodium Chloride (Calcium Gluconate 10%/Nss 50ml) 70 ml @ 240 mls/hr 0930 ONCE IV 12/20/16 09:30 12/20/16 09:47 Last 24 Hours Test 12/19/16 11:38 12/20/16 07:30 Bedside Glucose 85 mg/dl Sodium Level 143 mmol/L Potassium Level 3.9 mmol/L Chloride Level 108 mmol/L Carbon Dioxide Level 24 mmol/L Anion Gap 11.0 mmol/L Blood Urea Nitrogen 10 mg/dl Creatinine 0.92 mg/dl Est Creatinine Clear Calc Drug Dose 133.2 ml/min Estimated GFR () 107.4 Estimated GFR (Non- 92.6 BUN/Creatinine Ratio 11.2 Random Glucose 79 mg/dl Calcium Level 7.8 mg/dl Phosphorus Level 2.3 mg/dl Magnesium Level 1.3 mg/dl Assessment & Plan JZD-geo-cszsoggx-creatinine has improved back to baseline. Hypocalcemia-on vitamin d daily. will give another two grams of iv calcium supplementation. started on 1500mg of tums at night to help with calcium. Hypophos-phos levels are improving. to start on oral sodium phos supplementation. hypomag-giving 3 grams of iv magnesium. started on oral mag supplement 800 bid. would like to have established good calcium, phos and mag levels prior to discharge without iv supplmentation help prior to discharge.
[2016-12-20] MEDS ORDERED: CALCIUM GLUCONATE 10% 2,000 MG in SODIUM CHLORIDE 0.9% 50ML 50 ML IV ONE (09:30)
[2016-12-20] MEDS: MAGNESIUM SULFATE 1GM / D5W 1 GM in PREMIXED IN D5W 100 ML IV SCH ×3 (09:59→11:31)
--- NOTE | 2016-12-20 11:12 | Psych Management Progress Note ---
Psychiatry Miscellaneous Date of Service: Dec 20, 2016. I personally participated in the medical decision making outlined in the initial consult by KHURRAM Colvin on 12/20/16. Supplies of some of his controlled substances remain missing and liaison will continue to work with family to secure. Hasn't required IV Ativan for withdrawal. Currently on 1 mg Ativan BID (just decreased), can taper further if BP/P remain stable, Valium likely still clearing.
[2016-12-20] MEDS ORDERED: POT PHOSPHATE MONOBASIC W/ SOD TAB PO SCH (13:00)
[2016-12-20] MEDS: MAGNESIUM OXIDE 400 MG TAB PO SCH (20:54)
[2016-12-20] MEDS: CALCIUM CARBONATE 500 MG CHEWABLE PO SCH (20:55)
[2016-12-20] MEDS: ZOLPIDEM TARTRATE 10 MG TAB PO PRN (21:51)
--- NOTE | 2016-12-20 21:52 | Progress Note ---
Internal Med Progress Note Date of Service: Dec 20, 2016. Provider Documentation: SUBJECTIVE: awake and alert , offers no complain feels fine waiting to be discharged home no sign of with drawl OBJECTIVE: Vital Signs-as noted below Exam: General-no sign of distress , awake and alert Eyes-sclera non icteric Lungs-no rales or wheeze Heart-regular S1/S2 Abdomen-soft, non tender Extremities-rt knee mild tenderness, redness on rt 2nd toe with swelling and tenderness Neuro-AAo x3, no focal neurological deficit Lab data as noted below. ASSESSMENT & PLAN: CONFUSION /CHANGED MENTAL STATUS METABOLIC ENCEPHALOPATHY- resolved presented with hypotension /altered mental status likely form toxic metabolic from Narcotic pain medications /Percocet use required Pressor support for marked hypotension -admitted to ICU - symptom resolved-mental status improved to baseline, alert communicating Acute renal failure /severe electrolyte derangement /hypotension corrected - CT head negative for acute change _d/w pt -can not recall how many Percocet he took admits of drinking heavily -aware that it has been a problem , can not afford to go to Alcohol rehab -does not work / is the only person earning pt given information /resources for Alcohol rehab willing to go to Alcohol rehab as out patient if insurance covers Chronic alcohol abuse/ NARCOTIC /SEDATIVE MEDICATION USE : hx of penitentiary alcohol abuse ; 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 . 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 to long term care phlebotomist alcohol abuse replaced with IV replacement follow labs Nephrology following , appreciate input ordered PO Mg Oxide supplement HYPOVOLUMIC SHOCK -resolved, BP remains stable - likely Hypovolemic from Poor Oral Intake, Concurrent use of Diuretics -Presented with COURTNEY -Cr 12 required IV pressors -Levophed briefly in ICU , weaned off COURTNEY resolved with IV hydration Cr 0.9 now IVF D/omero given pt's hx of ETOH abuse , binge drinking , severe COURTNEY on presentation -it may be prudent to have him off diuretics Atenolol resumed , hold off HCTZ for persisted hypokalemia - 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, s/p Pituitary Resection -started on IV stress dose Hydrocortisone in ICU -appreciate input form Critical care -pt has remains stable hemodynamically on Oral steroid regimen -PO Cortef 10 mg in AM /20 mg in PM cont on Levothyroxine testosterone replacement ACUTE RENAL FAILURE ON CKD 3 Cr was 12 on presentation - likely Pre Renal baseline cr 1.5 Cr improved to baseline avoid NSAID's ,contrast studies - Renal US: no obstruction Lisinopril resumed cont to hold HCTZ for persisted hypokalemia - Nephro on board-appreciate input HX SEIZURES - continue gabapentin -no seizure episode noted DEPRESSION /ANXIETY DISORDER : pt mentions of having ongoing depressive symptoms with hopelessness feels worse as he remains at home all the time lost his Job denies of any suicidal ideation does not have any hobby used to work with his guns -which are taken away since he is in probation starts drinking heavily every time he feels depressed Cymbalta resumed feels anxious /panic attack without his Diazepam Alcohol abuse high risk for abuse /over dose of BDZ at home - Psychiatry consulted -appreciate input increased Cymbalta to 120 mg PO daily pt showing evidence of prescription controlled substance abuse -getting prescription for BDZ form different providers pt will not be prescribed any controlled medications during hospital discharge hospital records /psychiatry evaluation faxed to pt's psychiatrist Dr Rodriguez pt should receive medications form one provide -preferably from his Psychiatrist to prevent abuse /misuse will notify pt's Family Physician -will benefit form Contract for narcotics and BDZ HTN - BP stable _Atenolol 50 mg daily resumed -resumed ACEI DVT PROPHYLAXIS - SQ Heparin DISPOSITION lives with at home possible discharge home tomorrow pt will need continued followup with His Psychiatrist as out pt for depression / anxiety management will benefit form out pt Psychotherapy to address prescription medications dependency informations given/Referral made for out pt Alcohol rehab Vital Signs: Date Time Temp Pulse Resp B/P Pulse Ox O2 Delivery O2 Flow Rate FiO2 12/20/16 19:50 74 154/83 12/20/16 15:40 Room Air 12/20/16 14:39 36.7 80 20 137/76 96 Room Air 12/20/16 10:22 36.8 84 20 96 Room Air 12/20/16 09:15 150/88 12/20/16 08:58 96 Room Air 12/20/16 08:00 96 Room Air 12/20/16 07:53 36.8 84 20 192/92 96 Room Air 12/19/16 23:59 Room Air 12/19/16 23:29 36.9 76 20 168/89 95 Room Air Lab Results: Results Past 24 Hours Test 12/20/16 07:30 Range/Units Sodium Level 143 136-145 mmol/L Potassium Level 3.9 3.5-5.1 mmol/L Chloride Level 108 98-107 mmol/L Carbon Dioxide Level 24 21-32 mmol/L Anion Gap 11.0 3-11 mmol/L Blood Urea Nitrogen 10 7-18 mg/dl Creatinine 0.92 0.60-1.40 mg/dl Est Creatinine Clear Calc Drug Dose 133.2 ml/min Estimated GFR () 107.4 Estimated GFR (Non- 92.6 BUN/Creatinine Ratio 11.2 10-20 Random Glucose 79 70-99 mg/dl Calcium Level 7.8 8.5-10.1 mg/dl Phosphorus Level 2.3 2.5-4.9 mg/dl Magnesium Level 1.3 1.8-2.4 mg/dl
[2016-12-21] MEDS: HYDROCODONE/ACETAMOPHEN 5/325MG TAB PO PRN ×5 (04:45→22:37)
[2016-12-21] MEDS: LEVOTHYROXINE 150 MCG TAB PO SCH (06:30)
[2016-12-21 07:31] LABS: BUN/CREATININE RATIO 11.9 (10-20); CALCIUM 7.6 mg/dl (8.5-10.1); CREATININE 0.83 mg/dl (0.60-1.40); MAGNESIUM 1.7 mg/dl (1.8-2.4); POTASSIUM 3.9 mmol/L (3.5-5.1)
[2016-12-21 07:33] LABS: PHOSPHORUS 2.4 mg/dl (2.5-4.9)
[2016-12-21 07:43] VITALS: BP 154/87; PULSE 72; TEMP 36.7; O2SAT 94
[2016-12-21] MEDS ORDERED: LSN20 PO (07:47)
[2016-12-21] MEDS ORDERED: VTMD PO (07:47)
[2016-12-21] MEDS ORDERED: MGNO400 PO (07:47)
[2016-12-21] MEDS ORDERED: TUMS PO (07:47)
[2016-12-21 08:00] VITALS: O2SAT 94
[2016-12-21] MEDS ORDERED: MAGNESIUM SULFATE 1GM / D5W 1 GM in PREMIXED IN D5W 100 ML IV ONE (08:00)
[2016-12-21] MEDS: HYDROCORTISONE 10 MG TAB PO SCH ×2 (08:16→20:59)
[2016-12-21] MEDS: DULOXETINE HCL 60 MG CAP PO SCH (08:16)
[2016-12-21] MEDS: POT PHOSPHATE MONOBASIC W/ SOD TAB PO SCH ×4 (08:17→20:59)
[2016-12-21] MEDS: ERGOCALCIFEROL 50,000 INTER.UNIT CAP PO SCH (08:17)
[2016-12-21] MEDS: THIAMINE HCL 100 MG TAB PO SCH (08:17)
[2016-12-21] MEDS: LISINOPRIL 20 MG TAB PO SCH (08:17)
[2016-12-21] MEDS: MULTIVITAMIN TAB PO SCH (08:17)
[2016-12-21] MEDS: PANTOprazole SOD 40 MG TAB PO SCH (08:18)
[2016-12-21] MEDS: MAGNESIUM OXIDE 400 MG TAB PO SCH ×2 (08:18→20:59)
[2016-12-21] MEDS: DOCUSATE SODIUM 100 MG CAP PO SCH ×2 (08:19→21:00)
[2016-12-21] MEDS: NICOTINE 21 MG/24 HR TDSY TD SCH (08:19)
[2016-12-21] MEDS: LORAZEPAM 1 MG TAB PO SCH ×2 (08:48→20:59)
--- NOTE | 2016-12-21 12:55 | Nephrology Progress Note ---
Nephrology Progress Note Date of Service: Dec 21, 2016. Subjective 56 yo male with atn/volume depletion from overmedication of pain medications contributing to hypotension and hypocalcemia with hyperphosphatemia. pt continues to feel better and better each day. pt is very appreciative of the care he has recieved. Objective Date Time Temp Pulse Resp B/P Pulse Ox O2 Delivery O2 Flow Rate FiO2 12/21/16 08:00 94 Room Air 12/21/16 07:43 36.7 72 18 154/87 94 Room Air 12/20/16 23:59 Room Air 12/20/16 22:57 70 149/83 12/20/16 19:50 74 154/83 12/20/16 15:40 Room Air 12/20/16 14:39 36.7 80 20 137/76 96 Room Air Physical Exam: General-aaox3, obese Eyes-no scleral icterus ENT-mmm Neck-supple Lungs-clear Heart-rrr Abdomen-bs+ s/nt/nd Extremities-mild edema right>left Neuro-nonfocal Current Inpatient Medications Medications (Trade) Dose Ordered Sig/Hernandez Route Start Time Stop Time Status Last Admin Dose Admin Heparin Sodium (Porcine) (Heparin Sq 5000 Unit/0.5ml) 5,000 unit Q12H SQ 12/14/16 21:00 01/13/17 20:59 Future Hold 12/18/16 07:50 5,000 UNIT Miscellaneous Information (Order Awaiting Action) 1 ea QS N/A 12/14/16 16:00 01/13/17 15:59 12/18/16 11:29 1 EA Testosterone Cypionate (Depo-Testosterone Inj) 100 mg We@0900 IM 12/17/16 09:00 01/16/17 08:59 12/17/16 08:34 100 MG Ergocalciferol (Vitamin D Cap) 50,000 interunit DAILY@0900 PO 12/14/16 17:00 01/13/17 16:59 12/21/16 08:17 50,000 INTERUNIT Levothyroxine Sodium (Synthroid Tab) 300 mcg DAILYBB PO 12/15/16 10:00 01/14/17 09:59 12/21/16 06:30 300 MCG Docusate Sodium (coLACE CAP) 100 mg BID PO 12/15/16 21:00 01/14/17 20:59 3/12/17 08:19 100 MG Pantoprazole Sodium (Protonix Tab) 40 mg DAILY PO 12/16/16 09:00 01/15/17 08:59 12/21/16 08:18 40 MG Lorazepam (Ativan Tab) 1 mg BID PO 12/15/16 21:00 01/14/17 20:59 12/21/16 08:48 1 MG Morphine Sulfate (MoRPHine SULFATE INJ) 1 mg Q3H PRN IV 12/15/16 11:00 12/29/16 10:59 12/16/16 04:20 1 MG Multivitamins (Multivitamin Tab) 1 tab QAM PO 12/16/16 09:00 01/15/17 08:59 12/21/16 08:17 1 TAB Thiamine HCl (Vitamin B-1 Tab) 100 mg QAM PO 12/16/16 09:00 01/15/17 08:59 12/21/16 08:17 100 MG Folic Acid (Folvite Tab) 1 mg QAM PO 12/16/16 09:00 01/15/17 08:59 12/21/16 08:18 1 MG Nicotine (Nicoderm Cq 21MG Patch) 1 patch QAM TD 12/16/16 09:00 01/15/17 08:59 12/21/16 08:19 1 PATCH Miscellaneous (Remove Nicoderm Patch) 1 ea HS N/A 12/15/16 21:00 01/14/17 20:59 12/20/16 20:53 1 EA Acetaminophen/ Hydrocodone Bitart ([place] 5/325 Tab) 1 tab Q4H PRN PO 12/16/16 10:30 12/30/16 10:29 12/21/16 08:49 1 TAB Atenolol (Tenormin Tab) 50 mg DAILY PO 12/19/16 09:00 01/18/17 08:59 12/21/16 08:17 50 MG Hydrocortisone (Cortef Tab) 10 mg QPM PO 12/18/16 21:00 01/17/17 20:59 12/20/16 20:54 10 MG Hydrocortisone (Cortef Tab) 20 mg QAM PO 12/19/16 09:00 01/18/17 08:59 12/21/16 08:16 20 MG Zolpidem Tartrate (Ambien Tab) 10 mg HS PRN PO 12/18/16 17:00 01/17/17 16:59 12/20/16 21:51 10 MG Hydralazine HCl (HydrALAZINE INJ) 10 mg Q8 PRN IV. 12/18/16 19:15 01/17/17 19:14 12/19/16 23:22 10 MG Potassium/ Phosphorus/Sodium (Phospha 250 Neutral 155-852-130 Mg) 2 tab QID PO 12/18/16 19:30 01/17/17 19:29 12/21/16 08:17 2 TAB Lisinopril (Zestril Tab) 20 mg QAM PO 12/19/16 09:00 01/18/17 08:59 12/21/16 08:17 20 MG Acetaminophen (Tylenol Tab) 650 mg Q4H PRN PO 12/19/16 11:15 01/18/17 11:14 Duloxetine HCl 120 mg 120 mg QAM PO 12/20/16 09:00 01/19/17 08:59 12/21/16 08:16 120 MG Lorazepam/Syringe (Ativan Inj/ Syringe) 1 ml @ 1 mls/min ONE PRN IV 12/19/16 17:30 Calcium Carbonate (Tums Chew Tab) 1,500 mg HS PO 12/20/16 21:00 01/19/17 20:59 12/20/16 20:55 1,500 MG Magnesium Oxide (Mag-Ox Tab) 800 mg BID PO 12/20/16 21:00 01/19/17 20:59 12/21/16 08:18 800 MG Last 24 Hours Test 12/21/16 06:37 Sodium Level 143 mmol/L Potassium Level 3.9 mmol/L Chloride Level 109 mmol/L Carbon Dioxide Level 25 mmol/L Anion Gap 9.0 mmol/L Blood Urea Nitrogen 10 mg/dl Creatinine 0.83 mg/dl Est Creatinine Clear Calc Drug Dose 147.7 ml/min Estimated GFR () 114.0 Estimated GFR (Non- 98.4 BUN/Creatinine Ratio 11.9 Random Glucose 73 mg/dl Calcium Level 7.6 mg/dl Ionized Calcium 1.02 mmol/l Phosphorus Level 2.4 mg/dl Magnesium Level 1.7 mg/dl Assessment & Plan FNN-oif-aynrajid-creatinine has improved back to baseline. resolved. Hypocalcemia-on vitamin d daily and 1500mg of tums at night. may need to increase oral supplement to tid in between meals. will give additional 2 grams of calcium gluconate today. Hypophos-phos levels are improving. on oral phos supplementation. hypomag-on oral mag and recieved another dose of iv mag today. would repeat bmp, phos and mag about three days after discharge and continue oral supplements of oral mag and oral phos and oral calcium for now. Currently off hctz component of his bp medications and does have swelling in right leg. would like electrolytes stable as outpt before restarting his home benazepril/hctz medication.
[2016-12-21] MEDS ORDERED: CALCIUM GLUCONATE 10% 2,000 MG in SODIUM CHLORIDE 0.9% 50ML 50 ML IV ONE (13:30)
[2016-12-21 16:04] VITALS: BP 146/85; PULSE 66; TEMP 36.9; O2SAT 95
--- NOTE | 2016-12-21 18:23 | Progress Note ---
Internal Med Progress Note Date of Service: Dec 21, 2016. Provider Documentation: SUBJECTIVE: continues to feel well wants to go to inpatient Alcohol rehab when discharged no SOB , no fever or chills OBJECTIVE: Vital Signs-as noted below Exam: General-no sign of distress , awake and alert Eyes-sclera non icteric Lungs-no rales or wheeze Heart-regular S1/S2 Abdomen-soft, non tender Extremities-rt knee mild tenderness, redness on rt 2nd toe with swelling and tenderness Neuro-AAo x3, no focal neurological deficit Lab data as noted below. ASSESSMENT & PLAN: CONFUSION /CHANGED MENTAL STATUS METABOLIC ENCEPHALOPATHY- resolved presented with hypotension /altered mental status likely form toxic metabolic from Narcotic pain medications /Percocet use required Pressor support for marked hypotension -admitted to ICU - symptom resolved-mental status improved to baseline, alert communicating Acute renal failure /severe electrolyte derangement /hypotension corrected - CT head negative for acute change _d/w pt -can not recall how many Percocet he took admits of drinking heavily -aware that it has been a problem , can not afford to go to Alcohol rehab -does not work / is the only person earning pt given information /resources for Alcohol rehab willing to go to Alcohol rehab as out patient if insurance covers Chronic alcohol abuse/ NARCOTIC /SEDATIVE MEDICATION USE : 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 . 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 to termite treater helper alcohol abuse replaced with IV replacement follow labs Nephrology following , appreciate input ordered PO Mg Oxide supplement HYPOVOLUMIC SHOCK -resolved, BP remains stable - likely Hypovolemic from Poor Oral Intake, Concurrent use of Diuretics -Presented with COURTNEY -Cr 12 required IV pressors -Levophed briefly in ICU , weaned off COURTNEY resolved with IV hydration Cr 0.9 now IVF D/omero given pt's hx of ETOH abuse , binge drinking , severe COURTNEY on presentation -it may be prudent to have him off diuretics Atenolol resumed , hold off HCTZ for persisted hypokalemia - 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, s/p Pituitary Resection -started on IV stress dose Hydrocortisone in ICU -appreciate input form Critical care -pt has remains stable hemodynamically on Oral steroid regimen -PO Cortef 10 mg in AM /20 mg in PM cont on Levothyroxine testosterone replacement ACUTE RENAL FAILURE ON CKD 3 Cr was 12 on presentation - likely Pre Renal baseline cr 1.5 Cr improved to baseline avoid NSAID's ,contrast studies - Renal US: no obstruction Lisinopril resumed cont to hold HCTZ for persisted hypokalemia - Nephro on board-appreciate input HX SEIZURES - continue gabapentin -no seizure episode noted DEPRESSION /ANXIETY DISORDER : pt mentions of having ongoing depressive symptoms with hopelessness feels worse as he remains at home all the time lost his Job denies of any suicidal ideation does not have any hobby used to work with his guns -which are taken away since he is in probation starts drinking heavily every time he feels depressed Cymbalta resumed feels anxious /panic attack without his Diazepam Alcohol abuse high risk for abuse /over dose of BDZ at home - Psychiatry consulted -appreciate input increased Cymbalta to 120 mg PO daily pt showing evidence of prescription controlled substance abuse -getting prescription for BDZ form different providers pt will not be prescribed any controlled medications during hospital discharge hospital records /psychiatry evaluation faxed to pt's psychiatrist Dr Rodriguez pt should receive medications form one provide -preferably from his Psychiatrist to prevent abuse /misuse will notify pt's Family Physician -will benefit form Contract for narcotics and BDZ HTN - BP stable _Atenolol 50 mg daily resumed -resumed ACEI DVT PROPHYLAXIS - SQ Heparin DISPOSITION lives with at home possible discharge home in 1 -2 days pt will need continued followup with His Psychiatrist as out pt for depression / anxiety management will benefit form out pt Psychotherapy to address prescription medications dependency informations given/Referral made for out pt Alcohol rehab Vital Signs: Date Time Temp Pulse Resp B/P Pulse Ox O2 Delivery O2 Flow Rate FiO2 12/22/16 19:24 66 136/84 12/22/16 16:00 Room Air 12/22/16 15:02 37.0 71 16 139/79 93 Room Air 12/22/16 09:03 75 120/74 12/22/16 08:25 Room Air 12/22/16 07:18 36.9 58 16 159/86 95 Room Air 12/21/16 23:59 Room Air 12/21/16 23:17 70 158/84 12/21/16 23:07 170/96 94 Room Air 12/21/16 20:00 Room Air Lab Results: Results Past 24 Hours Test 12/22/16 06:25 Range/Units Sodium Level 142 136-145 mmol/L Potassium Level 4.0 3.5-5.1 mmol/L Chloride Level 108 98-107 mmol/L Carbon Dioxide Level 27 21-32 mmol/L Anion Gap 7.0 3-11 mmol/L Blood Urea Nitrogen 7 7-18 mg/dl Creatinine 1.00 0.60-1.40 mg/dl Est Creatinine Clear Calc Drug Dose 122.6 ml/min Estimated GFR () 97.1 Estimated GFR (Non- 83.8 BUN/Creatinine Ratio 7.1 10-20 Random Glucose 79 70-99 mg/dl Calcium Level 7.8 8.5-10.1 mg/dl Ionized Calcium 1.06 1.12-1.32 mmol/l Phosphorus Level 2.6 2.5-4.9 mg/dl Magnesium Level 1.4 1.8-2.4 mg/dl
[2016-12-21] MEDS ORDERED: NURSING VERBAL MED ORDER ONE (19:00)
[2016-12-21] MEDS: CALCIUM CARBONATE 500 MG CHEWABLE PO PRN (19:25)
[2016-12-21] MEDS: CALCIUM CARBONATE 500 MG CHEWABLE PO SCH (21:00)
[2016-12-21] MEDS: ZOLPIDEM TARTRATE 10 MG TAB PO PRN (22:37)
[2016-12-21 23:07] VITALS: BP 170/96; O2SAT 94
[2016-12-21 23:17] VITALS: BP 158/84; PULSE 70
[2016-12-22] MEDS: HYDROCODONE/ACETAMOPHEN 5/325MG TAB PO PRN ×5 (04:18→22:34)
[2016-12-22] MEDS: LEVOTHYROXINE 150 MCG TAB PO SCH (06:28)
[2016-12-22 07:18] VITALS: BP 159/86; PULSE 58; TEMP 36.9; O2SAT 95
[2016-12-22 07:22] LABS: BUN/CREATININE RATIO 7.1 (10-20); CALCIUM 7.8 mg/dl (8.5-10.1); MAGNESIUM 1.4 mg/dl (1.8-2.4); PHOSPHORUS 2.6 mg/dl (2.5-4.9)
--- NOTE | 2016-12-22 08:15 | Nephrology Progress Note ---
Nephrology Progress Note Date of Service: Dec 22, 2016. Subjective no c/o fasciculations or weakness; ongoing R knee pain; not dypsneic; edema better but some pedal/ "toe" edema present; transient N yesterday; none now; no sob or chest pain Objective Date Time Temp Pulse Resp B/P Pulse Ox O2 Delivery O2 Flow Rate FiO2 12/22/16 07:18 36.9 58 16 159/86 95 Room Air 12/21/16 23:59 Room Air 12/21/16 23:17 70 158/84 12/21/16 23:07 170/96 94 Room Air 12/21/16 20:00 Room Air 12/21/16 16:04 36.9 66 20 146/85 95 Room Air 12/21/16 16:00 Room Air Physical Exam: General-aaox3, obese, on RA, maneuvers readily for exam Eyes-no scleral icterus ENT-mmm Neck-supple Lungs-clear but diminished Heart-rrr Abdomen-bs+ s/nt/nd Extremities-no edema Neuro-nonfocal Current Inpatient Medications Medications (Trade) Dose Ordered Sig/Hernandez Route Start Time Stop Time Status Last Admin Dose Admin Heparin Sodium (Porcine) (Heparin Sq 5000 Unit/0.5ml) 5,000 unit Q12H SQ 12/14/16 21:00 01/13/17 20:59 Future Hold 12/18/16 07:50 5,000 UNIT Miscellaneous Information (Order Awaiting Action) 1 ea QS N/A 12/14/16 16:00 01/13/17 15:59 12/18/16 11:29 1 EA Testosterone Cypionate (Depo-Testosterone Inj) 100 mg We@0900 IM 12/17/16 09:00 01/16/17 08:59 12/17/16 08:34 100 MG Ergocalciferol (Vitamin D Cap) 50,000 interunit DAILY@0900 PO 12/14/16 17:00 01/13/17 16:59 12/21/16 08:17 50,000 INTERUNIT Levothyroxine Sodium (Synthroid Tab) 300 mcg DAILYBB PO 12/15/16 10:00 01/14/17 09:59 12/22/16 06:28 300 MCG Docusate Sodium (coLACE CAP) 100 mg BID PO 12/15/16 21:00 01/14/17 20:59 12/21/16 08:19 100 MG Pantoprazole Sodium (Protonix Tab) 40 mg DAILY PO 12/16/16 09:00 01/15/17 08:59 12/21/16 08:18 40 MG Lorazepam (Ativan Tab) 1 mg BID PO 12/15/16 21:00 01/14/17 20:59 12/21/16 20:59 1 MG Morphine Sulfate (MoRPHine SULFATE INJ) 1 mg Q3H PRN IV 12/15/16 11:00 12/29/16 10:59 12/16/16 04:20 1 MG Multivitamins (Multivitamin Tab) 1 tab QAM PO 12/16/16 09:00 01/15/17 08:59 12/21/16 08:17 1 TAB Thiamine HCl (Vitamin B-1 Tab) 100 mg QAM PO 12/16/16 09:00 01/15/17 08:59 12/21/16 08:17 100 MG Folic Acid (Folvite Tab) 1 mg QAM PO 12/16/16 09:00 01/15/17 08:59 12/21/16 08:18 1 MG Nicotine (Nicoderm Cq 21MG Patch) 1 patch QAM TD 12/16/16 09:00 01/15/17 08:59 12/21/16 08:19 1 PATCH Miscellaneous (Remove Nicoderm Patch) 1 ea HS N/A 12/15/16 21:00 01/14/17 20:59 12/21/16 21:03 1 EA Acetaminophen/ Hydrocodone Bitart ([place] 5/325 Tab) 1 tab Q4H PRN PO 12/16/16 10:30 12/30/16 10:29 12/22/16 04:18 1 TAB Atenolol (Tenormin Tab) 50 mg DAILY PO 12/19/16 09:00 01/18/17 08:59 12/21/16 08:17 50 MG Hydrocortisone (Cortef Tab) 10 mg QPM PO 12/18/16 21:00 01/17/17 20:59 12/21/16 20:59 10 MG Hydrocortisone (Cortef Tab) 20 mg QAM PO 12/19/16 09:00 01/18/17 08:59 12/21/16 08:16 20 MG Zolpidem Tartrate (Ambien Tab) 10 mg HS PRN PO 12/18/16 17:00 01/17/17 16:59 12/21/16 22:37 10 MG Hydralazine HCl (HydrALAZINE INJ) 10 mg Q8 PRN IV. 12/18/16 19:15 01/17/17 19:14 12/19/16 23:22 10 MG Potassium/ Phosphorus/Sodium (Phospha 250 Neutral 155-852-130 Mg) 2 tab QID PO 12/18/16 19:30 01/17/17 19:29 12/21/16 20:59 2 TAB Lisinopril (Zestril Tab) 20 mg QAM PO 12/19/16 09:00 01/18/17 08:59 12/21/16 08:17 20 MG Acetaminophen (Tylenol Tab) 650 mg Q4H PRN PO 12/19/16 11:15 01/18/17 11:14 Duloxetine HCl 120 mg 120 mg QAM PO 12/20/16 09:00 01/19/17 08:59 12/21/16 08:16 120 MG Lorazepam/Syringe (Ativan Inj/ Syringe) 1 ml @ 1 mls/min ONE PRN IV 12/19/16 17:30 Calcium Carbonate (Tums Chew Tab) 1,500 mg HS PO 12/20/16 21:00 01/19/17 20:59 12/21/16 21:00 1,500 MG Magnesium Oxide (Mag-Ox Tab) 800 mg BID PO 12/20/16 21:00 01/19/17 20:59 12/21/16 20:59 800 MG Calcium Carbonate (Tums Chew Tab) 500 mg Q6H PRN PO 12/21/16 19:00 01/20/17 18:59 12/21/16 19:25 500 MG Last 24 Hours Test 12/22/16 06:25 Sodium Level 142 mmol/L Potassium Level 4.0 mmol/L Chloride Level 108 mmol/L Carbon Dioxide Level 27 mmol/L Anion Gap 7.0 mmol/L Blood Urea Nitrogen 7 mg/dl Creatinine 1.00 mg/dl Est Creatinine Clear Calc Drug Dose 122.6 ml/min Estimated GFR () 97.1 Estimated GFR (Non- 83.8 BUN/Creatinine Ratio 7.1 Random Glucose 79 mg/dl Calcium Level 7.8 mg/dl Ionized Calcium 1.06 mmol/l Phosphorus Level 2.6 mg/dl Magnesium Level 1.4 mg/dl Assessment & Plan 56 yo male with atn/volume depletion from overmedication of pain medications contributing to hypotension and hypocalcemia with hyperphosphatemia. pt continues to improve. JDY-uvk-zwjuvjrv-creatinine has improved back to baseline. resolved. pt aware of need to avoid nsaids Hypocalcemia-on vitamin d daily and 1500mg of tums at night. may need to increase oral supplement to tid in between meals. yesterday had additional 2 grams of calcium gluconate. Ca improving but slow, still low. will increase TUMS to 1500 mg tid between meals; cont daily iCa Hypophos-phos levels are improving and today wnl. on oral phos supplementation. ck phos daily pls hypomag-on oral mag and will give yet another dose of iv mag today. ck mag daily ideally would see chemistries stable w/o IV repletion x 12-24 hrs prior to d/c. would repeat bmp, phos and mag about three days after discharge and continue oral supplements of oral mag and oral phos and oral calcium for now. Currently off hctz component of his bp medications; prone to edema burton R leg. however prefer stable electrolytes before restarting his home benazepril/hctz medications.
[2016-12-22] MEDS: CALCIUM CARBONATE 500 MG CHEWABLE PO SCH ×3 (08:26→21:05)
[2016-12-22] MEDS: ERGOCALCIFEROL 50,000 INTER.UNIT CAP PO SCH (08:27)
[2016-12-22] MEDS: THIAMINE HCL 100 MG TAB PO SCH (08:27)
[2016-12-22] MEDS: NICOTINE 21 MG/24 HR TDSY TD SCH (08:27)
[2016-12-22] MEDS: DOCUSATE SODIUM 100 MG CAP PO SCH ×2 (08:27→21:07)
[2016-12-22] MEDS: MULTIVITAMIN TAB PO SCH (08:28)
[2016-12-22] MEDS: PANTOprazole SOD 40 MG TAB PO SCH (08:28)
[2016-12-22] MEDS: DULOXETINE HCL 60 MG CAP PO SCH (08:28)
[2016-12-22] MEDS: MAGNESIUM OXIDE 400 MG TAB PO SCH ×2 (08:29→21:07)
[2016-12-22] MEDS: HYDROCORTISONE 10 MG TAB PO SCH ×2 (08:29→21:06)
[2016-12-22] MEDS: LISINOPRIL 20 MG TAB PO SCH (08:30)
[2016-12-22] MEDS: POT PHOSPHATE MONOBASIC W/ SOD TAB PO SCH ×4 (08:30→21:08)
[2016-12-22] MEDS: LORAZEPAM 1 MG TAB PO SCH ×2 (08:49→21:06)
[2016-12-22] MEDS: MAGNESIUM SULFATE 1GM / D5W 1 GM in PREMIXED IN D5W 100 ML IV SCH ×2 (09:02→10:25)
[2016-12-22 09:03] VITALS: BP 120/74; PULSE 75
[2016-12-22] MEDS ORDERED: VTMD PO (14:04)
[2016-12-22] MEDS: SOMATROPIN 6 MG SC SCH (14:22)
[2016-12-22 15:02] VITALS: BP 139/79; PULSE 71; TEMP 37; O2SAT 93
[2016-12-22] MEDS: CALCIUM CARBONATE 500 MG CHEWABLE PO PRN (19:20)
[2016-12-22 19:24] VITALS: BP 136/84; PULSE 66
--- NOTE | 2016-12-22 19:54 | Progress Note ---
Internal Med Progress Note Date of Service: Dec 22, 2016. Provider Documentation: SUBJECTIVE: offers no complain wants to go to inpatient alcohol rehab if accepted updated that he will need Lab work checked in few days after discharge for persisted low Mg level OBJECTIVE: Vital Signs-as noted below Exam: General-no sign of distress , awake and alert Eyes-sclera non icteric Lungs-no rales or wheeze Heart-regular S1/S2 Abdomen-soft, non tender Extremities-rt knee mild tenderness, redness on rt 2nd toe with swelling and tenderness Neuro-AAo x3, no focal neurological deficit Lab data as noted below. ASSESSMENT & PLAN: CONFUSION /CHANGED MENTAL STATUS METABOLIC ENCEPHALOPATHY- resolved presented with hypotension /altered mental status likely form toxic metabolic from Narcotic pain medications /Percocet use required Pressor support for marked hypotension -admitted to ICU - symptom resolved-mental status improved to baseline, alert communicating Acute renal failure /severe electrolyte derangement /hypotension corrected - CT head negative for acute change _d/w pt -can not recall how many Percocet he took admits of drinking heavily -aware that it has been a problem , can not afford to go to Alcohol rehab -does not work / is the only person earning pt given information /resources for Alcohol rehab willing to go to Alcohol rehab as out patient if insurance covers Chronic alcohol abuse/ NARCOTIC /SEDATIVE MEDICATION USE : hx of rn long term care alcohol abuse ; 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 . 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 to rn long term care alcohol abuse replaced with IV replacement follow labs Nephrology following , appreciate input ordered PO Mg Oxide supplement Mg persistently low 1.4 today given IV supplement prior to discharge electrolytes should improved enough -that not requiring IV replacement for at least 24 hrs script given for Lab check : BMP , mag, Phos in 3 days after discharge need to follow up with Family physician need to have abstinence form alcohol HYPOVOLUMIC SHOCK -resolved, BP remains stable - likely Hypovolemic from Poor Oral Intake, Concurrent use of Diuretics -Presented with COURTNEY -Cr 12 required IV pressors -Levophed briefly in ICU , weaned off COURTNEY resolved with IV hydration Cr 0.9 now IVF D/omero given pt's hx of ETOH abuse , binge drinking , severe COURTNEY on presentation -it may be prudent to have him off diuretics Atenolol resumed , hold off HCTZ for persisted hypokalemia - 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, s/p Pituitary Resection -started on IV stress dose Hydrocortisone in ICU -appreciate input form Critical care -pt has remains stable hemodynamically on Oral steroid regimen -PO Cortef 10 mg in AM /20 mg in PM cont on Levothyroxine testosterone replacement ACUTE RENAL FAILURE ON CKD 3 Cr was 12 on presentation - likely Pre Renal baseline cr 1.5 Cr improved to baseline avoid NSAID's ,contrast studies - Renal US: no obstruction Lisinopril resumed cont to hold HCTZ for persisted hypokalemia - Nephro on board-appreciate input HX SEIZURES - continue gabapentin -no seizure episode noted DEPRESSION /ANXIETY DISORDER : pt mentions of having ongoing depressive symptoms with hopelessness feels worse as he remains at home all the time lost his Job denies of any suicidal ideation does not have any hobby used to work with his guns -which are taken away since he is in probation starts drinking heavily every time he feels depressed Cymbalta resumed feels anxious /panic attack without his Diazepam Alcohol abuse high risk for abuse /over dose of BDZ at home - Psychiatry consulted -appreciate input increased Cymbalta to 120 mg PO daily pt showing evidence of prescription controlled substance abuse -getting prescription for BDZ form different providers pt will not be prescribed any controlled medications during hospital discharge hospital records /psychiatry evaluation faxed to pt's psychiatrist Dr Rodriguez pt should receive medications form one provide -preferably from his Psychiatrist to prevent abuse /misuse will notify pt's Family Physician -will benefit form Contract for narcotics and BDZ HTN - BP stable _Atenolol 50 mg daily resumed -resumed ACEI DVT PROPHYLAXIS - SQ Heparin DISPOSITION lives with at home possible discharge home in 1 -2 days Medicine follow u p with Dr Eugene on Thursday12/29/16 @ 1: 20 pm pt will need continued followup with His Psychiatrist as out pt for depression / anxiety management will benefit form out pt Psychotherapy to address prescription medications dependency informations given/Referral made for out pt Alcohol rehab Vital Signs: Date Time Temp Pulse Resp B/P Pulse Ox O2 Delivery O2 Flow Rate FiO2 12/23/16 14:49 37.2 74 18 159/95 96 Room Air 12/23/16 08:18 36.9 76 20 148/84 93 Room Air 12/23/16 08:06 Room Air 12/23/16 03:01 Room Air 12/23/16 00:01 37.0 76 16 148/88 93 12/22/16 19:24 66 136/84 12/22/16 19:15 Room Air Lab Results: Results Past 24 Hours Test 12/23/16 07:44 Range/Units Sodium Level 141 136-145 mmol/L Potassium Level 4.0 3.5-5.1 mmol/L Chloride Level 109 98-107 mmol/L Carbon Dioxide Level 21 21-32 mmol/L Anion Gap 11.0 3-11 mmol/L Blood Urea Nitrogen 7 7-18 mg/dl Creatinine 0.89 0.60-1.40 mg/dl Est Creatinine Clear Calc Drug Dose 135.5 ml/min Estimated GFR () 110.8 Estimated GFR (Non- 95.6 BUN/Creatinine Ratio 8.1 10-20 Random Glucose 76 70-99 mg/dl Calcium Level 8.4 8.5-10.1 mg/dl Ionized Calcium 1.08 1.12-1.32 mmol/l Phosphorus Level 2.3 2.5-4.9 mg/dl Magnesium Level 1.7 1.8-2.4 mg/dl
[2016-12-22] MEDS: ZOLPIDEM TARTRATE 10 MG TAB PO PRN (21:05)
[2016-12-23 00:01] VITALS: BP 148/88; PULSE 76; TEMP 37; O2SAT 93
[2016-12-23] MEDS: HYDROCODONE/ACETAMOPHEN 5/325MG TAB PO PRN ×4 (05:23→19:58)
[2016-12-23] MEDS: LEVOTHYROXINE 150 MCG TAB PO SCH (05:23)
[2016-12-23] MEDS: PANTOprazole SOD 40 MG TAB PO SCH (07:56)
[2016-12-23] MEDS: ERGOCALCIFEROL 50,000 INTER.UNIT CAP PO SCH (07:56)
[2016-12-23] MEDS: MULTIVITAMIN TAB PO SCH (07:57)
[2016-12-23] MEDS: DULOXETINE HCL 60 MG CAP PO SCH (07:57)
[2016-12-23] MEDS: LISINOPRIL 20 MG TAB PO SCH (07:57)
[2016-12-23] MEDS: NICOTINE 21 MG/24 HR TDSY TD SCH (07:57)
[2016-12-23] MEDS: POT PHOSPHATE MONOBASIC W/ SOD TAB PO SCH ×4 (07:57→19:53)
[2016-12-23] MEDS: HYDROCORTISONE 10 MG TAB PO SCH ×2 (07:58→19:53)
[2016-12-23] MEDS: THIAMINE HCL 100 MG TAB PO SCH (07:58)
[2016-12-23] MEDS: MAGNESIUM OXIDE 400 MG TAB PO SCH (07:58)
[2016-12-23] MEDS: DOCUSATE SODIUM 100 MG CAP PO SCH ×2 (07:58→19:55)
[2016-12-23] MEDS: CALCIUM CARBONATE 500 MG CHEWABLE PO SCH ×3 (07:59→19:54)
[2016-12-23] MEDS: LORAZEPAM 1 MG TAB PO SCH ×2 (08:05→19:52)
[2016-12-23 08:18] VITALS: BP 148/84; PULSE 76; TEMP 36.9; O2SAT 93
[2016-12-23 08:25] LABS: BUN/CREATININE RATIO 8.1 (10-20); CALCIUM 8.4 mg/dl (8.5-10.1); CREATININE 0.89 mg/dl (0.60-1.40); MAGNESIUM 1.7 mg/dl (1.8-2.4); PHOSPHORUS 2.3 mg/dl (2.5-4.9)
--- NOTE | 2016-12-23 09:30 | Nephrology Progress Note ---
Nephrology Progress Note Date of Service: Dec 23, 2016. Subjective c/o EDGAR and abd malaise/N; >5 BM all diarrhea per pt (zero bm on chart). tired. no sob or chest pain Objective Date Time Temp Pulse Resp B/P Pulse Ox O2 Delivery O2 Flow Rate FiO2 12/23/16 08:18 36.9 76 20 148/84 93 Room Air 12/23/16 03:01 Room Air 12/23/16 00:01 37.0 76 16 148/88 93 12/22/16 19:24 66 136/84 12/22/16 19:15 Room Air 12/22/16 16:00 Room Air 12/22/16 15:02 37.0 71 16 139/79 93 Room Air Physical Exam: General-aaox3, obese, on RA, maneuvers readily for exam Eyes-no scleral icterus ENT-mmm Neck-supple Lungs-clear but diminished Heart-rrr Abdomen-bs+ s/nt/nd Extremities-no edema Neuro-nonfocal Current Inpatient Medications Medications (Trade) Dose Ordered Sig/Hernandez Route Start Time Stop Time Status Last Admin Dose Admin Heparin Sodium (Porcine) (Heparin Sq 5000 Unit/0.5ml) 5,000 unit Q12H SQ 12/14/16 21:00 01/13/17 20:59 Future Hold 12/18/16 07:50 5,000 UNIT Testosterone Cypionate (Depo-Testosterone Inj) 100 mg We@0900 IM 12/17/16 09:00 01/16/17 08:59 12/17/16 08:34 100 MG Ergocalciferol (Vitamin D Cap) 50,000 interunit DAILY@0900 PO 12/14/16 17:00 01/13/17 16:59 12/23/16 07:56 50,000 INTERUNIT Levothyroxine Sodium (Synthroid Tab) 300 mcg DAILYBB PO 12/15/16 10:00 01/14/17 09:59 12/23/16 05:23 300 MCG Docusate Sodium (coLACE CAP) 100 mg BID PO 12/15/16 21:00 01/14/17 20:59 12/23/16 07:58 100 MG Pantoprazole Sodium (Protonix Tab) 40 mg DAILY PO 12/16/16 09:00 01/15/17 08:59 12/23/16 07:56 40 MG Lorazepam (Ativan Tab) 1 mg BID PO 12/15/16 21:00 01/14/17 20:59 12/23/16 08:05 1 MG Morphine Sulfate (MoRPHine SULFATE INJ) 1 mg Q3H PRN IV 12/15/16 11:00 12/29/16 10:59 12/16/16 04:20 1 MG Multivitamins (Multivitamin Tab) 1 tab QAM PO 12/16/16 09:00 01/15/17 08:59 12/23/16 07:57 1 TAB Thiamine HCl (Vitamin B-1 Tab) 100 mg QAM PO 12/16/16 09:00 01/15/17 08:59 12/23/16 07:58 100 MG Folic Acid (Folvite Tab) 1 mg QAM PO 12/16/16 09:00 01/15/17 08:59 12/23/16 07:59 1 MG Nicotine (Nicoderm Cq 21MG Patch) 1 patch QAM TD 12/16/16 09:00 01/15/17 08:59 12/23/16 07:57 1 PATCH Miscellaneous (Remove Nicoderm Patch) 1 ea HS N/A 12/15/16 21:00 01/14/17 20:59 12/22/16 21:08 1 EA Acetaminophen/ Hydrocodone Bitart ([place] 5/325 Tab) 1 tab Q4H PRN PO 12/16/16 10:30 12/30/16 10:29 12/23/16 05:23 1 TAB Atenolol (Tenormin Tab) 50 mg DAILY PO 12/19/16 09:00 01/18/17 08:59 12/23/16 07:57 50 MG Hydrocortisone (Cortef Tab) 10 mg QPM PO 12/18/16 21:00 01/17/17 20:59 12/22/16 21:06 10 MG Hydrocortisone (Cortef Tab) 20 mg QAM PO 12/19/16 09:00 01/18/17 08:59 12/23/16 07:58 20 MG Zolpidem Tartrate (Ambien Tab) 10 mg HS PRN PO 12/18/16 17:00 01/17/17 16:59 12/22/16 21:05 10 MG Hydralazine HCl (HydrALAZINE INJ) 10 mg Q8 PRN IV. 12/18/16 19:15 01/17/17 19:14 12/19/16 23:22 10 MG Potassium/ Phosphorus/Sodium (Phospha 250 Neutral 155-852-130 Mg) 2 tab QID PO 12/18/16 19:30 01/17/17 19:29 12/23/16 07:57 2 TAB Lisinopril (Zestril Tab) 20 mg QAM PO 12/19/16 09:00 01/18/17 08:59 12/23/16 07:57 20 MG Acetaminophen (Tylenol Tab) 650 mg Q4H PRN PO 12/19/16 11:15 01/18/17 11:14 Duloxetine HCl 120 mg 120 mg QAM PO 12/20/16 09:00 01/19/17 08:59 12/23/16 07:57 120 MG Lorazepam/Syringe (Ativan Inj/ Syringe) 1 ml @ 1 mls/min ONE PRN IV 12/19/16 17:30 Magnesium Oxide (Mag-Ox Tab) 800 mg BID PO 12/20/16 21:00 01/19/17 20:59 12/23/16 07:58 800 MG Calcium Carbonate (Tums Chew Tab) 500 mg Q6H PRN PO 12/21/16 19:00 01/20/17 18:59 12/22/16 19:20 500 MG Calcium Carbonate (Tums Chew Tab) 1,500 mg TID PO 12/22/16 09:00 01/21/17 08:59 12/23/16 07:59 1,500 MG Somatropin (Humatrope) 0.3 mg DAILY SC 12/23/16 09:00 01/22/17 08:59 12/22/16 14:22 0.3 MG Last 24 Hours Test 12/23/16 07:44 Sodium Level 141 mmol/L Potassium Level 4.0 mmol/L Chloride Level 109 mmol/L Carbon Dioxide Level 21 mmol/L Anion Gap 11.0 mmol/L Blood Urea Nitrogen 7 mg/dl Creatinine 0.89 mg/dl Est Creatinine Clear Calc Drug Dose 135.5 ml/min Estimated GFR () 110.8 Estimated GFR (Non- 95.6 BUN/Creatinine Ratio 8.1 Random Glucose 76 mg/dl Calcium Level 8.4 mg/dl Ionized Calcium 1.08 mmol/l Phosphorus Level 2.3 mg/dl Magnesium Level 1.7 mg/dl Assessment & Plan 56 yo male with atn/volume depletion from overmedication of pain medications contributing to hypotension and hypocalcemia with hyperphosphatemia. pt continues to improve. other significant medical hx includes panhypopituitarism and substance abuse (pain meds and EtOH); pt w/ 3 DUI and incarceration d/t substances. OZD-obk-ybzwzauj-creatinine has improved back to baseline. resolved. pt aware of need to avoid nsaids Hypocalcemia-D2 changed to weekly and on 12/22 increased 1500mg of tums to tid. Ca improving but slow, still low. cont daily iCa but no extra supplements today Hypophos-phos levels are acceptable. on oral phos supplementation. ck phos daily pls hypomag-on oral mag but will change to more absorbable form. 2 gm IV mag today. cont daily mag ck ideally would see chemistries stable w/o IV repletion x 24 hrs prior to d/c. electrolyte disorders complicated by adrenal / pituitary insufficiency. would repeat bmp, phos and mag about three days after discharge and continue oral supplements of oral mag and oral phos and oral calcium for now. Currently off hctz component of his bp medications; prone to edema burton R leg. however prefer stable electrolytes before restarting his home benazepril/hctz medications. Appreciate consult; will follow with you. Care coordinated w/ Dr Louis.
[2016-12-23] MEDS: MAGNESIUM SULFATE 1GM / D5W 1 GM in PREMIXED IN D5W 100 ML IV SCH ×2 (10:32→11:44)
[2016-12-23 14:49] VITALS: BP 159/95; PULSE 74; TEMP 37.2; O2SAT 96
--- NOTE | 2016-12-23 16:39 | Progress Note ---
Internal Med Progress Note Date of Service: Dec 23, 2016. Provider Documentation: SUBJECTIVE: resting comfortably having several episodes of diarrhea poor appetite today no vomiting no abdominal pain afebrile OBJECTIVE: Vital Signs-as noted below Exam: General-alert and oriented. Not in distress ENT-normal hearing Neck-no neck masses Lungs-cta b/l no wheezing no crackles Heart-s1 and s2 heard, regular rate and rhythm no murmurs Abdomen-soft bowel sounds present non tender no distension Extremities-no edema no erythema Neuro-alert and awake moves extremities Lab data as noted below. ASSESSMENT & PLAN: CONFUSION /CHANGED MENTAL STATUS METABOLIC ENCEPHALOPATHY- presented with alerted mental status , hypotension and cr of 12. 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 information seems to be obtained form pt had 3 episodes of DUI , was incarcerated for 10 days in [facility] was on House arrest for 6 months currently under probation patient dose not want to go back to assisted , wants to go back home information for potential rehab center given to pt by CM , referral faxed to [facility] [place], [facility], [facility], and [place]. . ELECTROLYTE DERANGEMENTS; has diarrhea since last several days magnesium replacement as per nephrology will f/u labs HYPOVOLUMIC SHOCK on presentation Most likely Hypovolemic from Poor Oral Intake, Concurrent use of Diuretics Presented with COURTNEY -Cr 12 required pressors initially hold off HCTZ for persisted hypokalemia stable now - 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, s/p Pituitary Resection Was started on IV stress dose Hydrocortisone in ICU appreciate input form Critical care Currently on Oral steroid regimen -PO Cortef 10 mg in AM /20 mg in PM cont on Levothyroxine testosterone replacement ACUTE RENAL FAILURE ON CKD 3 Cr was 12 on presentation likely Pre Renal baseline cr 1.5 resolved.Lisinopril resumed cont to hold HCTZ for persisted hypokalemia Nephro on board and appreciate input HX SEIZURES On gabapentin no seizure episode noted DEPRESSION /ANXIETY DISORDER : starts drinking heavily every time he feels depressed Cymbalta resumed feels anxious /panic attack without his Diazepam hx of ongoing Alcoholism high risk for abuse /over dose of BDZ at home - Psychiatry consulted appreciate input increased Cymbalta to 120 mg PO daily pt seems to be getting prescription for BDZ form different providers pt will not be prescribed any controlled medications during hospital discharge hospital records /psychiatry evaluation faxed to pt's psychiatrist Dr Rodriguez HTN on atenolol and lisinopril hctz on hold will monitor DVT PROPHYLAXIS SQ Heparin DISPOSITION lives with at home to be determined Vital Signs: Date Time Temp Pulse Resp B/P Pulse Ox O2 Delivery O2 Flow Rate FiO2 12/23/16 14:49 37.2 74 18 159/95 96 Room Air 12/23/16 08:18 36.9 76 20 148/84 93 Room Air 12/23/16 08:06 Room Air 12/23/16 03:01 Room Air 12/23/16 00:01 37.0 76 16 148/88 93 12/22/16 19:24 66 136/84 12/22/16 19:15 Room Air Lab Results: Results Past 24 Hours Test 12/23/16 07:44 Range/Units Sodium Level 141 136-145 mmol/L Potassium Level 4.0 3.5-5.1 mmol/L Chloride Level 109 98-107 mmol/L Carbon Dioxide Level 21 21-32 mmol/L Anion Gap 11.0 3-11 mmol/L Blood Urea Nitrogen 7 7-18 mg/dl Creatinine 0.89 0.60-1.40 mg/dl Est Creatinine Clear Calc Drug Dose 135.5 ml/min Estimated GFR () 110.8 Estimated GFR (Non- 95.6 BUN/Creatinine Ratio 8.1 10-20 Random Glucose 76 70-99 mg/dl Calcium Level 8.4 8.5-10.1 mg/dl Ionized Calcium 1.08 1.12-1.32 mmol/l Phosphorus Level 2.3 2.5-4.9 mg/dl Magnesium Level 1.7 1.8-2.4 mg/dl
[2016-12-23 18:37] VITALS: BP 147/90
[2016-12-23] MEDS: MAGNESIUM CHLORIDE 64MG DELAYED REL TAB PO SCH (19:59)
[2016-12-23] MEDS ORDERED: SUMATRIPTAN SUCCINATE 50 MG TAB PO ONE (21:45)
[2016-12-23] MEDS: ZOLPIDEM TARTRATE 10 MG TAB PO PRN (23:45)
[2016-12-24] VITALS: BP 147/94; PULSE 78; TEMP 37; O2SAT 92
[2016-12-24] MEDS: LEVOTHYROXINE 150 MCG TAB PO SCH (04:52)
[2016-12-24] MEDS: HYDROCODONE/ACETAMOPHEN 5/325MG TAB PO PRN ×5 (04:53→22:28)
[2016-12-24 06:19] LABS: MAGNESIUM 1.8 mg/dl (1.8-2.4); POTASSIUM 4.1 mmol/L (3.5-5.1)
[2016-12-24 08:12] VITALS: BP 132/86; PULSE 74; TEMP 36.9; O2SAT 93
[2016-12-24 08:19] VITALS: O2SAT 93
[2016-12-24] MEDS: MAGNESIUM CHLORIDE 64MG DELAYED REL TAB PO SCH ×2 (08:53→20:45)
[2016-12-24] MEDS: MULTIVITAMIN TAB PO SCH (08:53)
[2016-12-24] MEDS: HYDROCORTISONE 10 MG TAB PO SCH ×2 (08:53→20:29)
[2016-12-24] MEDS: POT PHOSPHATE MONOBASIC W/ SOD TAB PO SCH ×4 (08:53→20:30)
[2016-12-24] MEDS: PANTOprazole SOD 40 MG TAB PO SCH (08:53)
[2016-12-24] MEDS: DULOXETINE HCL 60 MG CAP PO SCH (08:53)
[2016-12-24] MEDS: CALCIUM CARBONATE 500 MG CHEWABLE PO SCH ×3 (08:54→20:45)
[2016-12-24] MEDS: NICOTINE 21 MG/24 HR TDSY TD SCH (08:54)
[2016-12-24] MEDS: ERGOCALCIFEROL 50,000 INTER.UNIT CAP PO SCH (08:54)
[2016-12-24] MEDS: THIAMINE HCL 100 MG TAB PO SCH (08:54)
[2016-12-24] MEDS: LISINOPRIL 20 MG TAB PO SCH (08:54)
[2016-12-24] MEDS: LORAZEPAM 1 MG TAB PO SCH ×2 (09:00→20:26)
--- NOTE | 2016-12-24 09:06 | Nephrology Progress Note ---
Nephrology Progress Note Date of Service: Dec 24, 2016. Subjective c/o EDGAR on going but improved abd malaise/N; >5 BM all diarrhea per pt ( unchanged from yesterday). no edema. no sob or chest pain Objective Date Time Temp Pulse Resp B/P Pulse Ox O2 Delivery O2 Flow Rate FiO2 12/24/16 08:19 93 Room Air 12/24/16 08:12 36.9 74 18 132/86 93 Room Air 12/24/16 01:00 Room Air 12/24/16 00:00 37.0 78 20 147/94 92 Room Air 12/23/16 18:37 147/90 12/23/16 16:00 Room Air 12/23/16 14:49 37.2 74 18 159/95 96 Room Air Physical Exam: General-aaox3, obese, on RA, maneuvers readily for exam Eyes-no scleral icterus ENT-mmm Neck-supple Lungs-clear yet diminished Heart-rrr Abdomen-bs+ s/nt/nd Extremities-no edema Neuro-nonfocal Current Inpatient Medications Medications (Trade) Dose Ordered Sig/Hernandez Route Start Time Stop Time Status Last Admin Dose Admin Heparin Sodium (Porcine) (Heparin Sq 5000 Unit/0.5ml) 5,000 unit Q12H SQ 12/14/16 21:00 01/13/17 20:59 Future Hold 12/18/16 07:50 5,000 UNIT Testosterone Cypionate (Depo-Testosterone Inj) 100 mg We@0900 IM 12/17/16 09:00 01/16/17 08:59 12/17/16 08:34 100 MG Ergocalciferol (Vitamin D Cap) 50,000 interunit DAILY@0900 PO 12/14/16 17:00 01/13/17 16:59 12/24/16 08:54 50,000 INTERUNIT Levothyroxine Sodium (Synthroid Tab) 300 mcg DAILYBB PO 12/15/16 10:00 01/14/17 09:59 12/24/16 04:52 300 MCG Docusate Sodium (coLACE CAP) 100 mg BID PO 12/15/16 21:00 01/14/17 20:59 12/23/16 19:55 100 MG Pantoprazole Sodium (Protonix Tab) 40 mg DAILY PO 12/16/16 09:00 01/15/17 08:59 12/24/16 08:53 40 MG Lorazepam (Ativan Tab) 1 mg BID PO 12/15/16 21:00 01/14/17 20:59 12/24/16 09:00 1 MG Morphine Sulfate (MoRPHine SULFATE INJ) 1 mg Q3H PRN IV 12/15/16 11:00 12/29/16 10:59 12/16/16 04:20 1 MG Multivitamins (Multivitamin Tab) 1 tab QAM PO 12/16/16 09:00 01/15/17 08:59 12/24/16 08:53 1 TAB Thiamine HCl (Vitamin B-1 Tab) 100 mg QAM PO 12/16/16 09:00 01/15/17 08:59 12/24/16 08:54 100 MG Folic Acid (Folvite Tab) 1 mg QAM PO 12/16/16 09:00 01/15/17 08:59 12/24/16 08:53 1 MG Nicotine (Nicoderm Cq 21MG Patch) 1 patch QAM TD 12/16/16 09:00 01/15/17 08:59 12/24/16 08:54 1 PATCH Miscellaneous (Remove Nicoderm Patch) 1 ea HS N/A 12/15/16 21:00 01/14/17 20:59 12/23/16 21:03 1 EA Acetaminophen/ Hydrocodone Bitart ([place] 5/325 Tab) 1 tab Q4H PRN PO 12/16/16 10:30 12/30/16 10:29 12/24/16 09:00 1 TAB Atenolol (Tenormin Tab) 50 mg DAILY PO 12/19/16 09:00 01/18/17 08:59 12/24/16 08:54 50 MG Hydrocortisone (Cortef Tab) 10 mg QPM PO 12/18/16 21:00 01/17/17 20:59 12/23/16 19:53 10 MG Hydrocortisone (Cortef Tab) 20 mg QAM PO 12/19/16 09:00 01/18/17 08:59 12/24/16 08:53 20 MG Zolpidem Tartrate (Ambien Tab) 10 mg HS PRN PO 12/18/16 17:00 01/17/17 16:59 12/23/16 23:45 10 MG Hydralazine HCl (HydrALAZINE INJ) 10 mg Q8 PRN IV. 12/18/16 19:15 01/17/17 19:14 12/19/16 23:22 10 MG Potassium/ Phosphorus/Sodium (Phospha 250 Neutral 155-852-130 Mg) 2 tab QID PO 12/18/16 19:30 01/17/17 19:29 12/24/16 08:53 2 TAB Lisinopril (Zestril Tab) 20 mg QAM PO 12/19/16 09:00 01/18/17 08:59 12/24/16 08:54 20 MG Acetaminophen (Tylenol Tab) 650 mg Q4H PRN PO 12/19/16 11:15 01/18/17 11:14 12/23/16 18:28 650 MG Duloxetine HCl 120 mg 120 mg QAM PO 12/20/16 09:00 01/19/17 08:59 12/24/16 08:53 120 MG Lorazepam/Syringe (Ativan Inj/ Syringe) 1 ml @ 1 mls/min ONE PRN IV 12/19/16 17:30 Calcium Carbonate (Tums Chew Tab) 500 mg Q6H PRN PO 12/21/16 19:00 01/20/17 18:59 12/22/16 19:20 500 MG Calcium Carbonate (Tums Chew Tab) 1,500 mg TID PO 12/22/16 09:00 01/21/17 08:59 12/24/16 08:54 1,500 MG Somatropin (Humatrope) 0.3 mg DAILY SC 12/23/16 09:00 01/22/17 08:59 12/22/16 14:22 0.3 MG Magnesium Chloride (Slow-Mag Tab) 128 mg BID PO 12/23/16 21:00 01/22/17 20:59 12/24/16 08:53 128 MG Last 24 Hours Test 12/24/16 05:35 Sodium Level 139 mmol/L Potassium Level 4.1 mmol/L Chloride Level 107 mmol/L Carbon Dioxide Level 23 mmol/L Anion Gap 9.0 mmol/L Blood Urea Nitrogen 8 mg/dl Creatinine 1.00 mg/dl Est Creatinine Clear Calc Drug Dose 120.6 ml/min Estimated GFR () 97.1 Estimated GFR (Non- 83.8 BUN/Creatinine Ratio 8.0 Random Glucose 72 mg/dl Calcium Level 8.0 mg/dl Ionized Calcium 1.08 mmol/l Magnesium Level 1.8 mg/dl Assessment & Plan 56 yo male with atn/volume depletion from overmedication of pain medications contributing to hypotension and hypocalcemia with hyperphosphatemia. pt continues to improve. other significant medical hx includes panhypopituitarism and substance abuse (pain meds and EtOH); pt w/ 3 DUI and incarceration d/t substances. CCZ-pim-hsikkkqa-creatinine has improved back to baseline. resolved. pt aware of need to avoid nsaids Hypocalcemia-D2 changed to weekly and on 12/22 increased 1500mg of tums to tid. Ca improving but slow, still slightly low. cont daily iCa but no extra supplements today Hypophos-phos levels are acceptable. on oral phos supplementation. ck phos daily pls hypomag-on oral mag but will change to more absorbable form. no IV mag today; will lower po mag to 64 mg bid to seeif better absorbed. cont daily mag ck ideally would see chemistries stable w/o IV repletion x 24 hrs prior to d/c. electrolyte disorders complicated by adrenal / pituitary insufficiency. would repeat bmp, phos and mag about three days after discharge and continue oral supplements of oral mag and oral phos and oral calcium for now. Currently off hctz component of his bp medications; prone to edema burton R leg. however prefer stable electrolytes before restarting his home benazepril/hctz medications> bp acceptable currently on ACEI. Appreciate consult; will follow with you.
[2016-12-24] MEDS: TESTOSTERONE CYPIONATE IM 200 MG/ML VIAL IM SCH (09:59)
[2016-12-24] MEDS: SOMATROPIN 6 MG SC SCH (10:06)
[2016-12-24] MEDS ORDERED: SUMATRIPTAN SUCCINATE 50 MG TAB PO PRN (10:15)
[2016-12-24] MEDS: DOCUSATE SODIUM 100 MG CAP PO SCH ×2 (10:29→20:28)
--- NOTE | 2016-12-24 12:19 | Progress Note ---
Internal Med Progress Note Date of Service: Dec 24, 2016. Provider Documentation: SUBJECTIVE: says his headaches improved with imitrex still has diarrhea but getting better' eating better today no nausea or abdominal pain no sob OBJECTIVE: Vital Signs-as noted below Exam: General-alert and oriented. Not in distress ENT-normal hearing Neck-no neck masses Lungs-cta b/l no wheezing no crackles Heart-s1 and s2 heard, regular rate and rhythm no murmurs Abdomen-soft bowel sounds present non tender no distension Extremities-no edema no erythema Neuro-alert and awake moves extremities Lab data as noted below. ASSESSMENT & PLAN: CONFUSION /CHANGED MENTAL STATUS METABOLIC ENCEPHALOPATHY- presented with alerted mental status , hypotension and cr of 12. 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 information seems to be obtained form pt had 3 episodes of DUI , was [facility] for 10 days in [facility] was on House arrest for 6 months currently under probation patient dose not want to go back to care home , wants to go back home information for potential rehab center given to pt by CM , referral faxed to [facility] [place], [facility], [facility], and [facility]. . stable ELECTROLYTE DERANGEMENTS; has diarrhea since last several days magnesium replacement as per nephrology improving will f/u labs HYPOVOLUMIC SHOCK on presentation Most likely Hypovolemic from Poor Oral Intake, Concurrent use of Diuretics Presented with COURTNEY -Cr 12 required pressors initially hold off HCTZ for persisted hypokalemia stable now - 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, s/p Pituitary Resection Was started on IV stress dose Hydrocortisone in ICU appreciate input form Critical care Currently on Oral steroid regimen -PO Cortef 10 mg in AM /20 mg in PM cont on Levothyroxine testosterone replacement followup with pcp/endo ACUTE RENAL FAILURE ON CKD 3 Cr was 12 on presentation likely Pre Renal baseline cr 1.5 resolved.Lisinopril resumed cont to hold HCTZ for persisted hypokalemia Nephro on board and appreciate input HX SEIZURES On gabapentin no seizure episode noted DEPRESSION /ANXIETY DISORDER : starts drinking heavily every time he feels depressed Cymbalta resumed feels anxious /panic attack without his Diazepam hx of ongoing Alcoholism high risk for abuse /over dose of BDZ at home - Psychiatry consulted appreciate input increased Cymbalta to 120 mg PO daily pt seems to be getting prescription for BDZ form different providers pt will not be prescribed any controlled medications during hospital discharge hospital records /psychiatry evaluation faxed to pt's psychiatrist Dr Rodriguez seems stable HTN on atenolol and lisinopril hctz on hold will monitor DVT PROPHYLAXIS SQ Heparin DISPOSITION lives with at home possible d/c in 1-2 days Vital Signs: Date Time Temp Pulse Resp B/P Pulse Ox O2 Delivery O2 Flow Rate FiO2 12/24/16 08:19 93 Room Air 12/24/16 08:12 36.9 74 18 132/86 93 Room Air 12/24/16 08:00 Room Air 12/24/16 01:00 Room Air 12/24/16 00:00 37.0 78 20 147/94 92 Room Air 12/23/16 18:37 147/90 12/23/16 16:00 Room Air 12/23/16 14:49 37.2 74 18 159/95 96 Room Air Lab Results: Results Past 24 Hours Test 12/24/16 05:35 Range/Units Sodium Level 139 136-145 mmol/L Potassium Level 4.1 3.5-5.1 mmol/L Chloride Level 107 98-107 mmol/L Carbon Dioxide Level 23 21-32 mmol/L Anion Gap 9.0 3-11 mmol/L Blood Urea Nitrogen 8 7-18 mg/dl Creatinine 1.00 0.60-1.40 mg/dl Est Creatinine Clear Calc Drug Dose 120.6 ml/min Estimated GFR () 97.1 Estimated GFR (Non- 83.8 BUN/Creatinine Ratio 8.0 10-20 Random Glucose 72 70-99 mg/dl Calcium Level 8.0 8.5-10.1 mg/dl Ionized Calcium 1.08 1.12-1.32 mmol/l Magnesium Level 1.8 1.8-2.4 mg/dl
[2016-12-24 15:19] VITALS: BP 128/81; PULSE 69; TEMP 37; O2SAT 95
[2016-12-24] MEDS: ZOLPIDEM TARTRATE 10 MG TAB PO PRN (22:27)
[2016-12-25] VITALS: BP 121/79; PULSE 79; TEMP 36.9; O2SAT 93
[2016-12-25] MEDS: HYDROCODONE/ACETAMOPHEN 5/325MG TAB PO PRN ×3 (02:27→11:57)
[2016-12-25] MEDS: LEVOTHYROXINE 150 MCG TAB PO SCH (06:00)
[2016-12-25 07:29] VITALS: BP 142/73; PULSE 71; TEMP 36.5; O2SAT 94
[2016-12-25 07:48] LABS: BUN/CREATININE RATIO 6.6 (10-20); CALCIUM 8.1 mg/dl (8.5-10.1); CREATININE 0.96 mg/dl (0.60-1.40); MAGNESIUM 1.6 mg/dl (1.8-2.4); PHOSPHORUS 2.8 mg/dl (2.5-4.9); POTASSIUM 3.7 mmol/L (3.5-5.1)
[2016-12-25] MEDS: MAGNESIUM CHLORIDE 64MG DELAYED REL TAB PO SCH (08:52)
[2016-12-25] MEDS: DOCUSATE SODIUM 100 MG CAP PO SCH (08:52)
[2016-12-25] MEDS: ERGOCALCIFEROL 50,000 INTER.UNIT CAP PO SCH (08:52)
[2016-12-25] MEDS: POT PHOSPHATE MONOBASIC W/ SOD TAB PO SCH (08:52)
[2016-12-25] MEDS: PANTOprazole SOD 40 MG TAB PO SCH (08:52)
[2016-12-25] MEDS: MULTIVITAMIN TAB PO SCH (08:52)
[2016-12-25] MEDS: LORAZEPAM 1 MG TAB PO SCH (08:52)
[2016-12-25] MEDS: CALCIUM CARBONATE 500 MG CHEWABLE PO SCH (08:52)
[2016-12-25] MEDS: LISINOPRIL 20 MG TAB PO SCH (08:52)
[2016-12-25] MEDS: THIAMINE HCL 100 MG TAB PO SCH (08:52)
[2016-12-25] MEDS: HYDROCORTISONE 10 MG TAB PO SCH (08:53)
[2016-12-25] MEDS: DULOXETINE HCL 60 MG CAP PO SCH (08:53)
[2016-12-25] MEDS: NICOTINE 21 MG/24 HR TDSY TD SCH (08:53)
[2016-12-25] MEDS: SOMATROPIN 6 MG SC SCH (08:54)
[2016-12-25] MEDS ORDERED: SLWMEC PO (11:11)
[2016-12-25] MEDS ORDERED: LSN20 PO (11:11)
[2016-12-25] MEDS ORDERED: CYM60 PO (11:11)
[2016-12-25] MEDS ORDERED: FLV1 PO (11:11)
[2016-12-25] MEDS ORDERED: TUMS PO (11:11)
[2016-12-25] MEDS ORDERED: THM100 PO (11:11)
[2016-12-25] MEDS ORDERED: CHOL2000 PO (11:14)
--- NOTE | 2016-12-25 11:22 | Discharge Instructions ---
Discharge Instructions Date of Service Dec 25, 2016. Admission Reason for Admission: SHOCK Discharge Discharge Diagnosis / Problem: hypotension, arf, drug over dose, alcholism, electrolyte abnormalities Discharge Goals Goal(s): Decrease discomfort Activity Recommendations Activity Limitations: resume your previous activity . Instructions / Follow-Up Instructions / Follow-Up FOLLOWUP WITH FAMILY DOCTOR ON December AT 1:10PM. FOLLOWUP WITH ENDOCRINOLOGY DR.Jan Chantal Todd MD IN 2-3 WEEKS ([facility], [address], [place] [id number] ) PLEASE GO THROUGH MEDICATION LIST SOME OF THE MEDICATIONS HAVE BEEN STOPPED AND SOME NEW MEDICATIONS PRESCRIBED. LAB:CMP WITH PO4 LEVELS IN ONE WEEK AND FOLLOW RESULTS WITH FAMILY DOCTOR FOR LOW CALCIUM , POTASSIUM AND MAGNESIUM LEVELS. TO TAKE CALCIUM AND MAGNESIUM SUPPLEMENTS UNTIL FURTHER ORDERS FROM FAMILY DOCTOR. TO TAKE VITAMIN D 2000UNITS TWICE DAILY UNTIL FURTHER ORDERS FROM FAMILY DOCTOR. FOLLOW WITH FAMILY DOCTOR FOR ATIVAN AND AMBIEN REFILLS WITH FAMILY DOCTOR [facility] DRUG MONITORING PROGRAM SHOWS THEY HAVE BEEN FILLED ON December. PLEASE AVOID ALCOHOL. PLEASE FOLLOW WITH OUT PATIENT ALCOHOL REHAB. PLEASE AVOID PAIN MEDICATIONS AND SEDATIVE MEDICATIONS. Current Hospital Diet Patient's current hospital diet: AHA Diet (Heart Healthy) Discharge Diet Recommended Diet: AHA Diet (Heart Healthy) Pending Studies Studies pending at discharge: no Medical Emergencies . Who to Call and When: Medical Emergencies: If at any time you feel your situation is an emergency, please call 911 immediately. . Non-Emergent Contact Non-Emergency issues call your: Primary Care Provider . . "Provider Documentation" section prepared by Mal Louis. VTE Core Measure Inpt VTE Proph given/why not?: Unfractionated heparin SQ, SCD's
[2016-12-25] MEDS ORDERED: SUMA50TA15 PO (11:27)
--- NOTE | 2016-12-25 18:28 | Progress Note ---
Internal Med Progress Note Date of Service: Dec 25, 2016. Provider Documentation: SUBJECTIVE: no headaches still has diarrhea but getting better afebrile denies any complaints ok to go home OBJECTIVE: Vital Signs-as noted below Exam: General-alert and oriented. Not in distress ENT-normal hearing Neck-no neck masses Lungs-cta b/l no wheezing no crackles Heart-s1 and s2 heard, regular rate and rhythm no murmurs Abdomen-soft bowel sounds present non tender no distension Extremities-no edema no erythema Neuro-alert and awake moves extremities Lab data as noted below. ASSESSMENT & PLAN: CONFUSION /CHANGED MENTAL STATUS METABOLIC ENCEPHALOPATHY- presented with alerted mental status , hypotension and cr of 12. 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 information seems to be obtained form pt had 3 episodes of DUI , was [facility] for [facility] in [facility] was on House arrest for 6 months currently under probation patient dose not want to go back to shelter , wants to go back home information for potential rehab center given to pt by CM , referral faxed to [facility] [place], [facility] [place], [facility], and [place]. . stable ELECTROLYTE DERANGEMENTS; has diarrhea since last several days magnesium replacement as per nephrology improving discharged on magnesium and calcium supplemets f/u with pcp HYPOVOLUMIC SHOCK on presentation Most likely Hypovolemic from Poor Oral Intake, Concurrent use of Diuretics Presented with COURTNEY -Cr 12 required pressors initially hold off HCTZ for persisted hypokalemia no hctz on discharge stable now - 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, s/p Pituitary Resection Was started on IV stress dose Hydrocortisone in ICU appreciate input form Critical care Currently on Oral steroid regimen -PO Cortef 10 mg in AM /20 mg in PM cont on Levothyroxine testosterone replacement followup with pcp/endo ACUTE RENAL FAILURE ON CKD 3 Cr was 12 on presentation likely Pre Renal baseline cr 1.5 resolved.Lisinopril resumed stopped HCTZ for persisted hypokalemia Nephro on board and appreciate input HX SEIZURES On gabapentin no seizure episode noted DEPRESSION /ANXIETY DISORDER : starts drinking heavily every time he feels depressed Cymbalta resumed feels anxious /panic attack without his Diazepam hx of ongoing Alcoholism high risk for abuse /over dose of BDZ at home - Psychiatry consulted appreciate input increased Cymbalta to 120 mg PO daily pt seems to be getting prescription for BDZ form different providers pt will not be prescribed any controlled medications during hospital discharge hospital records /psychiatry evaluation faxed to pt's psychiatrist Dr Rodriguez seems stable f/u with psychiatry Vitamin D deficiency vitamin d levels 4 discharged o vitamin d supplements f/u with pcp. HTN on atenolol and lisinopril stopped benazepril/hctz f/u with pcp Discharged home Vital Signs: Date Time Temp Pulse Resp B/P Pulse Ox O2 Delivery O2 Flow Rate FiO2 12/25/16 09:00 Room Air 12/25/16 07:29 36.5 71 18 142/73 94 Room Air 12/25/16 00:00 36.9 79 20 121/79 93 Room Air 12/24/16 23:23 Room Air Lab Results: Results Past 24 Hours Test 12/25/16 07:00 Range/Units Sodium Level 139 136-145 mmol/L Potassium Level 3.7 3.5-5.1 mmol/L Chloride Level 108 98-107 mmol/L Carbon Dioxide Level 23 21-32 mmol/L Anion Gap 8.0 3-11 mmol/L Blood Urea Nitrogen 6 7-18 mg/dl Creatinine 0.96 0.60-1.40 mg/dl Est Creatinine Clear Calc Drug Dose 124.5 ml/min Estimated GFR () 102.0 Estimated GFR (Non- 88.0 BUN/Creatinine Ratio 6.6 10-20 Random Glucose 79 70-99 mg/dl Calcium Level 8.1 8.5-10.1 mg/dl Ionized Calcium 1.07 1.12-1.32 mmol/l Phosphorus Level 2.8 2.5-4.9 mg/dl Magnesium Level 1.6 1.8-2.4 mg/dl
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
[2017-05-30] MEDS ORDERED: ZLF/50 PO (09:50)
[2017-06-01] MEDS ORDERED: ATV1 PO ×3 (08:57→09:01)
== END 2016-12-25 12:30 | disposition home or self-care (01) | DRG 682 ==
LOC: ENRESERVTM → ENRESERVDT → C.EDB 09:13 → C.MSICU 12:54 → C.2T 12-16 15:25 → C.MS2W 12-18 16:31
PROVIDERS: ADMIT Internal Medicine; ATTEND Internal Medicine
PROC: 05HM03Z Insertion of Infusion Device into Right Internal Jugular Vein, Open Approach (ICD-10-PCS; principal; 2016-12-14)
DX: N17.0 Acute kidney failure with tubular necrosis (principal); G92 Toxic encephalopathy; F11.20 Opioid dependence, uncomplicated; E87.2 Acidosis; E23.0 Hypopituitarism; E27.40 Unspecified adrenocortical insufficiency; Z68.42 Body mass index [BMI] 45.0-49.9, adult; E83.42 Hypomagnesemia; E87.6 Hypokalemia; T40.2X1A Poisoning by other opioids, accidental (unintentional), initial encounter; E86.1 Hypovolemia; E83.51 Hypocalcemia; I95.9 Hypotension, unspecified; E55.9 Vitamin D deficiency, unspecified; E53.8 Deficiency of other specified B group vitamins; E83.39 Other disorders of phosphorus metabolism; N18.3 Chronic kidney disease, stage 3 (moderate); I12.9 Hypertensive chronic kidney disease with stage 1 through stage 4 chronic kidney disease, or unspecified chronic kidney disease; F32.9 Major depressive disorder, single episode, unspecified; K21.9 Gastro-esophageal reflux disease without esophagitis; E78.5 Hyperlipidemia, unspecified; E03.9 Hypothyroidism, unspecified; M19.90 Unspecified osteoarthritis, unspecified site; G40.909 Epilepsy, unspecified, not intractable, without status epilepticus; E66.01 Morbid (severe) obesity due to excess calories; F10.20 Alcohol dependence, uncomplicated; F17.220 Nicotine dependence, chewing tobacco, uncomplicated; Z79.52 Long term (current) use of systemic steroids; Z91.030 Bee allergy status; Z83.6 Family history of other diseases of the respiratory system; Z82.49 Family history of ischemic heart disease and other diseases of the circulatory system; Z81.8 Family history of other mental and behavioral disorders

== ENCOUNTER → 2016-12-29 | Outpatient (CLI) | payer BC ==
[~2016-12-29] MED LIST changes: +ATV1 PO; -BENA-4 PO; +CALC500C3 PO; +CHOL2000 PO; -CYM/30 PO; +CYM60 PO; +FLV1 PO; -LEVE500T PO; +LSN20 PO; -LSX40 PO; +NRN/600 PO; +OXYC-106 PO; -OXYC7.5T62 PO; -PSYL48.59 PO; +SLWMEC PO; +SUMA50TA15 PO; +TEST1GEL15 TOP; +THM100 PO; +TUMS PO; +ZLF/50 PO; -ZOLP10TA PO; +ZOLP10TA6 PO
[2016-12-29 17:51] LABS: BLOOD UREA NITROGEN 12 mg/dl (7-18); BUN/CREATININE RATIO 9.9 (10-20); CALCIUM 8.8 mg/dl (8.5-10.1); CARBON DIOXIDE 21 mmol/L (21-32); CHLORIDE 108 mmol/L (98-107); GLUCOSE 87 mg/dl (70-99); POTASSIUM 4.3 mmol/L (3.5-5.1); SODIUM 139 mmol/L (136-145)
[2016-12-29 17:54] LABS: ALB/GLOB RATIO 0.8 (0.9-2); ALKALINE PHOSPHATASE 90 U/L (45-117); ALT/SGPT 66 U/L (12-78); AST/SGOT 40 U/L (15-37)
== END | disposition home or self-care (01) ==
LOC: C.LABBFT 12:22
PROVIDERS: ATTEND Internal Medicine
DX: E87.8 Other disorders of electrolyte and fluid balance, not elsewhere classified (principal)

== ENCOUNTER → 2017-02-25 | Outpatient (CLI) | payer BC ==
[2017-02-25 17:31] LABS: HEMATOCRIT 51.4 % (42-52); MEAN CELL VOLUME 91.9 fL (80-100); MEAN CORPUSCULAR HEMOGLOBIN 27.9 pg (25-34); MEAN CORPUSCULAR HGB CONC 30.4 g/dl (32-36); MEAN PLATELET VOLUME 10.7 fL (7.4-10.4); PLATELET COUNT 230 K/uL (130-400); RED BLOOD COUNT 5.59 M/uL (4.7-6.1); WHITE BLOOD COUNT 7.81 K/uL (4.8-10.8)
[2017-03-04 14:16] LABS: ILGF1 Z SCORE MALE -2.4 SD (-2.0 - +2.0)
== END | disposition home or self-care (01) ==
LOC: C.LABBFT 11:09
PROVIDERS: ATTEND Internal Medicine Endocrinology, Diabetes & Metabolism
DX: E23.0 Hypopituitarism (principal); E23.6 Other disorders of pituitary gland; E27.49 Other adrenocortical insufficiency; E03.8 Other specified hypothyroidism

== ENCOUNTER 2017-05-30 13:41 | Inpatient (IN) | payer BC, OTHER ==
[2017-05-30] VITALS (10 sets, daily range): BP systolic 69–112; BP diastolic 37–72; PULSE 68–80; TEMP 36.5; O2SAT 88–95; Ht 180.3 cm; Wt 157.2 kg
[~2017-05-30] VITALS: Ht 180.3 cm; Wt 157.2 kg
[~2017-05-30 13:41] MED LIST changes: -ATV1 PO; -CALC500C3 PO; -OXYC-106 PO; -TEST1GEL15 TOP; -ZOLP10TA6 PO
[2017-05-30] MEDS ORDERED: SODIUM CHLORIDE 0.9% 1000ML 1,000 ML IV STA ×2 (14:17→15:36)
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
[2017-05-30] MEDS ORDERED: OPTIRAY 320 IV PRN (14:30)
--- NOTE | 2017-05-30 14:37 | DIAGNOSTIC IMAGING REPORT ---
CHEST ONE VIEW PORTABLE CLINICAL HISTORY: Bilateral upper shoulder discomfort. COMPARISON STUDY: Chest radiograph December 16, 2016. FINDINGS: Enlargement of the cardiac silhouette is unchanged. There is no evidence of pulmonary edema. No pneumothorax or pleural effusion is present. Lung volumes are diminished. The appearance of the chest is unchanged. IMPRESSION: No acute cardiopulmonary findings. No change in appearance of the chest. Electronically signed by: Brigido Jones M.D. 05/30/2017 2:35 PM Dictated Date/Time: 05/30/2017 2:34 PM
[2017-05-30 14:53] LABS: ISTAT CREATININE 4.9 mg/dl (0.6-1.3); ISTAT IONIZED CALCIUM 0.89 mmol/l (1.12-1.32)
[2017-05-30 15:01] LABS: BASO % 0.6 %; BASO ABS # 0.05 K/uL (0-0.2); COMPLETE YES; HEMATOCRIT 43.4 % (42-52); IG% 0.2 %; LYMPH % 23.4 %; LYMPH ABS # 1.96 K/uL (1.2-3.4); MEAN CORPUSCULAR HEMOGLOBIN 29.7 pg (25-34); MEAN CORPUSCULAR HGB CONC 32.9 g/dl (32-36); MEAN PLATELET VOLUME 10.5 fL (7.4-10.4); MONO % 3.9 %; NEUT % 69.9 %; PLATELET COUNT 245 K/uL (130-400); RED BLOOD COUNT 4.82 M/uL (4.7-6.1); WHITE BLOOD COUNT 8.38 K/uL (4.8-10.8)
[2017-05-30] MEDS ORDERED: OXYC-106 PO (15:24)
[2017-05-30] MEDS ORDERED: ZOLP10TA6 PO (15:24)
[2017-05-30] MEDS ORDERED: TEST1GEL15 TOP (15:24)
[2017-05-30] MEDS ORDERED: CALC500C3 PO (15:24)
[2017-05-30] MEDS ORDERED: ATV1 PO (15:24)
[2017-05-30 15:43] LABS: ALKALINE PHOSPHATASE 75 U/L (45-117); ALT/SGPT 54 U/L (12-78); AST/SGOT 138 U/L (15-37); BLOOD UREA NITROGEN 53 mg/dl (7-18); BUN/CREATININE RATIO 11.4 (10-20); CALCIUM 8.6 mg/dl (8.5-10.1); CARBON DIOXIDE 23 mmol/L (21-32); CHLORIDE 97 mmol/L (98-107); GLUCOSE 91 mg/dl (70-99); POTASSIUM 3.3 mmol/L (3.5-5.1); SODIUM 134 mmol/L (136-145)
--- NOTE | 2017-05-30 16:07 | DIAGNOSTIC IMAGING REPORT ---
CT OF THE ABDOMEN AND PELVIS WITHOUT CONTRAST, STONE PROTOCOL CLINICAL HISTORY: Right flank pain. COMPARISON STUDY: CT of the abdomen and pelvis February 06, 2015 and renal ultrasound December 24, 2016. TECHNIQUE: Helical axial images of the abdomen and pelvis were obtained without IV or oral contrast according to renal stone protocol. A dose lowering technique was utilized adhering to the principles of ALARA. FINDINGS: There are no renal, ureteral or bladder calculi. No hydronephrosis or hydroureter is present. Fatty infiltration of the liver is noted. Evaluation of the abdomen and pelvis is suboptimal on this unenhanced exam. There is no biliary or pancreatic ductal dilatation. There is no peripancreatic infiltration. There is mild gallbladder distention with possible layering material within the gallbladder. There is no significant pericholecystic infiltration. There is no evidence for a bowel obstruction. No pneumatosis, free air or portal venous gas is present. The appendix is normal. There is no ascites or lymphadenopathy. Lumbar spine will be reported separately. IMPRESSION: 1. No urinary calculi or hydronephrosis. 2. Mild gallbladder distention with possible layering material within the gallbladder. No significant pericholecystic infiltration. A biliary ultrasound could be obtained if right upper quadrant pain. 3. Fatty liver. 4. No bowel obstruction. Normal appendix. Electronically signed by: Brigido Jones M.D. 05/30/2017 4:05 PM Dictated Date/Time: 05/30/2017 3:57 PM
--- NOTE | 2017-05-30 16:21 | DIAGNOSTIC IMAGING REPORT ---
LUMBAR SPINE WITHOUT CLINICAL HISTORY: Low back pain. History of compression fracture. COMPARISON STUDY: Lumbar spine CT February 06, 2015. FINDINGS: For purposes of numbering on this exam, the L5-S1 disc space is assigned to axial image 195 of 233. Alignment of the lumbar spine is anatomic. There is an old moderate L5 compression fracture. This was shown on exam of February 06, 2015. There is mild loss of height of the superior plate of T12 which has increased since prior exam. However, this likely reflects an old mild compression fracture. No acute fracture is identified. Mild loss of height with concavity of the inferior endplate of L5 is unchanged. Paravertebral soft tissues are unremarkable. No suspicious lesion is present. The central canal and neural foramen are suboptimally assessed by CT technique. Hour, there is suspected moderate to severe central canal stenosis at L3-L4 and L4-L5 due to disc bulge, ligamentous hypertrophy and facet arthrosis. IMPRESSION: 1. No acute lumbar spine fracture or subluxation. 2. Old L4 compression fracture. Mild T12 compression fracture which is age-indeterminate but likely old. 3. Moderate to severe central canal stenosis at L3-L4 and L4-L5 which is suboptimally assessed by CT. Moderate to severe multilevel neural foraminal stenosis most pronounced at the L3-L4, L4-L5 and L5-S1 levels. Electronically signed by: Brigido Jones M.D. 05/30/2017 4:20 PM Dictated Date/Time: 05/30/2017 4:11 PM
[2017-05-30] MEDS ORDERED: HYDROCORTISONE SOD SUCCINATE 100 MG/2 ML VIAL IV STA (16:41)
[2017-05-30] MEDS ORDERED: ONDANSETRON INJ 2 MG/ML 2 ML VIAL IV PRN (18:00)
[2017-05-30] MEDS ORDERED: ALBUT/IPRATROP 3MG/0.5MG NEB 3 ML VIAL INH PRN (18:00)
[2017-05-30] MEDS ORDERED: HEPARIN SOD 5000 UNIT/0.5 ML CARP SQ SCH (18:00)
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
[2017-05-30 20:19] LABS: URINE APPEARANCE CLEAR (CLEAR); URINE BILIRUBIN NEG (NEG); URINE COLOR YELLOW; URINE EPITHELIAL CELL AUTO 0-5 /lpf (0-5); URINE NITRITE NEG (NEG); URINE PH 5.5 (4.5-7.5); URINE SPECIFIC GRAVITY 1.014 (1.000-1.030); UROBILINOGEN NEG (NEG); ZZUR CULT IF INDIC CLEAN CATCH NO
[2017-05-30 20:27] LABS: MANUAL MICROSCOPIC REQUIRED? NO; REVIEW REQ? NO
[2017-05-30 21:01] LABS: BUN/CREATININE RATIO 14.5 (10-20); CREATININE 3.6 mg/dl (0.60-1.40); MAGNESIUM 2.6 mg/dl (1.8-2.4); POTASSIUM 3.3 mmol/L (3.5-5.1)
[2017-05-30 21:04] LABS: BENZODIAZEPINE, URINE NEG (NEG); COCAINE,URINE NEG (NEG); PHENCYCLIDINE, URINE NEG (NEG)
[2017-05-30 21:56] LABS: PROTHROMBIN TIME (PATIENT) 10.4 SECONDS (9.0-12.0)
[2017-05-30] MEDS: HYDROCORTISONE 10 MG TAB PO SCH (21:59)
[2017-05-30] MEDS: GABAPENTIN 600 MG TAB PO SCH (22:00)
[2017-05-30] MEDS ORDERED: SODIUM CHLORIDE 0.9% 500ML 500 ML IV STA (22:52)
[2017-05-30] MEDS: HEPARIN SOD 5000 UNIT/0.5 ML CARP SQ SCH (23:00)
[2017-05-31] VITALS (26 sets, daily range): BP systolic 67–172; BP diastolic 42–126; PULSE 59–71; TEMP 36.6–36.9; O2SAT 86–99
--- NOTE | 2017-05-31 04:15 | Critical Care Progress Note ---
Critical Care Progress Note Date of Service May 31, 2017. ICU Day ICU Day Number: [address] Camejo Subjective Patient well. Denies acute overnight issues. Still complaining of back pain, but otherwise denies fevers/chills, CP, SOB, abdo pain, N/V. No issues with voiding or BM. Tolerating diet Objective GENERAL: Awake, obese, lying in bed, no acute distress, non-toxic HEAD: Normocephalic, atraumatic. No sinus tenderness. EYES: PERRL, EOMI, normal conjunctiva and sclera OROPHARYNX: No exudate, no erythema, lips, buccal mucosa, teeth and tongue carry significant evidence of heavy tobacco chewing. Mucous membranes are moist NECK: supple, no nuchal rigidity, no adenopathy, non-tender LUNGS: Clear to auscultation. Normal chest wall mechanics, good air entry. No crepitations, crackles, or wheezes HEART: RRR, S1 and S2 normal, no murmurs appreciated CHEST: No reproducible tenderness. ABDOMEN: abdomen soft, non-tender, normo-active bowel sounds, no masses, no rebound or guarding. BACK: Back is symmetrical on inspection, no deformities, diffuse low back tenderness, no CVA tenderness. SKIN: Warm, pink, dry. No erythema, rashes, or bruising. EXTREMITIES: Grossly normal. Moving all 4 limbs, strength 5/5. Calves non tender. NEURO: Alert, Ox3. No focal deficits. Normal sensorium, cranial nerves II-XII grossly intact, speech WNL PSYCH: Mood and affect appropriate. Current SOFA Score SOFA Score Response (Comments) Value Platelets (x10) > 150 0 Bilirubin (mg/dL) < 1.2 0 [place] Coma Score 15 0 Level of Hypotension MAP less than 70 1 Creatinine (mg/dL) 2.0 - 3.4 2 Total 3 Assessment & Plan Reason critically ill: 56 year old male presents with COURTNEY, hypotension, polysubstance abuse, possibly at risk of withdrawal. Neuro - CAM negative. GCS 15. Holding sedative medications. - Thiamine ordered. Remain alert for signs of withdrawal. MARYELLEN checklist. Neuro checks - Urine drug screen negative, brings to question whether he's taking his prescription benzos. Acetaminophen and EtOH levels low. - Gabapentin, duloxetine and Percocet ordered for pain management. Use other pain medications, particularly acetaminophen judiciously. - If reordering Ativan, recommend change from 1g TID to 0.5mg QID (for overall reduced dose) - Continue to monitor for changes in RASS CV - Vitals show stable HR, but hypotension in the 70-90s overnight, subsequently improved to the 120s upon waking * s/p IVF x 4L since admission. But being cautious in view of h/o CHF - Continue atenolol - Continue to monitor on telemetry Resp - Saturating 93% on RA - Continue pulse oximetry GI/Nutrition - Diet allowed - LFTs normal, except AST, lipase negative. Trend - Prophylaxis: pantoprazole Renal/ - Electrolyte imbalance. Will supplement and monitor via BMP tomorrow. - Hydration provided with some improvement in creatinine. Trend. Avoid nephrotoxic drugs. ID - No evidence of active infection as per renal U/S Endo - Continue levothyroxine, somatropin and hydrocortisone as prescribed - Monitor blood sugars Heme - CBC normal. Will monitor Access/Line - Peripheral IV VTE Prophylaxis - Heparin SC q8h Resident Physician Supervision Note: Dr. Moraes was resident physician during care of patient. I discussed the case with the resident and generally agree with the findings and plan. stable for downgrade. Documented By: Montez Camejo DO Consults & Procedures Consultants: Hospitalist: Dr. Bennett Procedures: Nil Data Medications: Current Inpatient Medications Medications (Trade) Dose Ordered Sig/Hernandez Route Start Time Stop Time Status Last Admin Dose Admin Ioversol (Optiray 320) 125 ml UD PRN IV 05/30/17 14:30 06/03/17 14:29 Albuterol/ Ipratropium (Duoneb) 3 ml Q6H PRN INH 05/30/17 18:00 06/29/17 17:59 Atenolol (Tenormin Tab) 50 mg DAILY PO 05/31/17 09:00 06/30/17 08:59 Folic Acid (Folvite Tab) 1 mg QAM PO 05/31/17 09:00 06/30/17 08:59 Hydrocortisone (Cortef Tab) 10 mg QPM PO 05/30/17 21:00 06/29/17 20:59 05/30/17 21:59 10 MG Hydrocortisone (Cortef Tab) 20 mg QAM PO 05/31/17 09:00 06/30/17 08:59 Levothyroxine Sodium (Synthroid Tab) 300 mcg DAILYBB PO 05/31/17 06:00 06/30/17 05:59 Thiamine HCl (Vitamin B-1 Tab) 100 mg QAM PO 05/31/17 09:00 06/30/17 08:59 Pantoprazole Sodium (Protonix Tab) 40 mg DAILY PO 05/31/17 09:00 06/30/17 08:59 Miscellaneous Information (Order Awaiting Action) 1 ea QS N/A 05/31/17 00:00 06/30/17 00:00 Gabapentin (Neurontin Tab) 600 mg TID PO 05/30/17 21:00 06/29/17 20:59 05/30/17 22:00 600 MG Heparin Sodium (Porcine) (Heparin Sq 5000 Unit/0.5ml) 5,000 unit Q8@0600,1400,2200 SQ 05/30/17 23:00 06/29/17 22:59 Vital Signs: Date Time Temp Pulse Resp B/P (MAP) Pulse Ox O2 Delivery O2 Flow Rate FiO2 05/31/17 03:00 65 18 77/52 (60) 99 05/31/17 02:58 67 16 94/56 (69) 96 05/31/17 02:00 67 19 91/72 (78) 98 05/31/17 01:14 70 18 76/54 (61) 91 05/31/17 01:01 66 23 67/42 (50) 93 05/31/17 00:40 70 20 82/53 (63) 91 05/31/17 00:04 93 Room Air 2.0 05/31/17 00:00 36.8 69 19 87/54 (65) 94 05/30/17 23:00 68 19 91/54 (66) 05/30/17 22:54 68 19 85/51 (62) 95 05/30/17 22:03 74 17 81/57 (65) 93 05/30/17 22:02 73 19 71/37 (48) 88 05/30/17 22:01 73 19 69/41 (50) 88 05/30/17 21:02 80 81/58 (66) 05/30/17 20:21 93 Room Air 2.0 05/30/17 20:01 36.5 78 21 105/64 (78) 92 05/30/17 19:50 36.5 78 24 112/72 93 Room Air 05/30/17 19:04 112/72 05/30/17 19:04 77 23 112/72 (85) 05/30/17 18:40 108/65 05/30/17 18:31 71 20 05/30/17 18:26 71 21 05/30/17 18:20 113/60 05/30/17 18:11 72 21 88/66 05/30/17 18:00 153/86 05/30/17 17:56 73 22 05/30/17 17:50 134/80 05/30/17 17:41 75 19 128/72 05/30/17 17:30 111/65 05/30/17 17:26 75 22 90 05/30/17 17:20 116/51 05/30/17 17:11 75 24 89 05/30/17 17:10 121/61 05/30/17 17:09 110/59 05/30/17 17:07 116/68 05/30/17 17:06 127/60 05/30/17 17:05 120/66 05/30/17 17:04 126/62 05/30/17 17:01 124/66 05/30/17 16:56 75 29 89 05/30/17 16:43 73 05/30/17 16:41 75 18 86 05/30/17 16:39 93/43 05/30/17 16:25 74 20 78/38 95 Room Air 05/30/17 16:25 75/39 05/30/17 15:56 71 20 85/48 95 Room Air 05/30/17 15:31 70 20 77/ 92 Room Air 05/30/17 14:15 67/44 05/30/17 14:10 70 20 73/41 05/30/17 13:54 36.6 90 18 90/53 9 Room Air Laboratory Results: Last 24 Hours Test 05/30/17 14:36 05/30/17 14:40 05/30/17 19:50 05/30/17 20:19 Bedside Hemoglobin 15.0 g/dl Bedside Hematocrit 44 % Bedside Sodium 132 mEq/L Bedside Potassium 4.7 mEq/L Bedside Chloride 102 mEq/L Bedside Total CO2 20 mEq/l Anion Gap 16.0 mmol/L 14.0 mmol/L 9.0 mmol/L Bedside Blood Urea Nitrogen 79 mg/dl Bedside Creatinine 4.9 mg/dl Bedside Glucose (other) 100 mg/dl Bedside Ionized Calcium (Luis Daniel) 0.89 mmol/l White Blood Count 8.38 K/uL Red Blood Count 4.82 M/uL Hemoglobin 14.3 g/dL Hematocrit 43.4 % Mean Corpuscular Volume 90.0 fL Mean Corpuscular Hemoglobin 29.7 pg Mean Corpuscular Hemoglobin Concent 32.9 g/dl Platelet Count 245 K/uL Mean Platelet Volume 10.5 fL Neutrophils (%) (Auto) 69.9 % Lymphocytes (%) (Auto) 23.4 % Monocytes (%) (Auto) 3.9 % Eosinophils (%) (Auto) 2.0 % Basophils (%) (Auto) 0.6 % Neutrophils # (Auto) 5.85 K/uL Lymphocytes # (Auto) 1.96 K/uL Monocytes # (Auto) 0.33 K/uL Eosinophils # (Auto) 0.17 K/uL Basophils # (Auto) 0.05 K/uL RDW Standard Deviation 56.6 fL RDW Coefficient of Variation 17.0 % Immature Granulocyte % (Auto) 0.2 % Immature Granulocyte # (Auto) 0.02 K/uL Sodium Level 134 mmol/L 136 mmol/L Potassium Level 3.3 mmol/L 3.3 mmol/L Chloride Level 97 mmol/L 103 mmol/L Carbon Dioxide Level 23 mmol/L 24 mmol/L Blood Urea Nitrogen 53 mg/dl 52 mg/dl Creatinine 4.60 mg/dl 3.60 mg/dl Est Creatinine Clear Calc Drug Dose 26.4 ml/min 35.2 ml/min Estimated GFR () 15.3 20.6 Estimated GFR (Non- 13.2 17.8 BUN/Creatinine Ratio 11.4 14.5 Random Glucose 91 mg/dl 107 mg/dl Calcium Level 8.6 mg/dl 8.0 mg/dl Total Bilirubin 0.7 mg/dl Direct Bilirubin 0.2 mg/dl Aspartate Amino Transf (AST/SGOT) 138 U/L Alanine Aminotransferase (ALT/SGPT) 54 U/L Alkaline Phosphatase 75 U/L Troponin I < 0.015 ng/ml Total Protein 7.9 gm/dl Albumin 3.5 gm/dl Lipase 110 U/L Acetaminophen Level 4 ug/ml Urine Color YELLOW Urine Appearance CLEAR Urine pH 5.5 Urine Specific [place] 1.014 Urine Protein 1+ Urine Glucose (UA) NEG Urine Ketones NEG Urine Occult Blood 3+ Urine Nitrite NEG Urine Bilirubin NEG Urine Urobilinogen NEG Urine Leukocyte Esterase NEG Urine WBC (Auto) 1-5 /hpf Urine RBC (Auto) 0-4 /hpf Urine Hyaline Casts (Auto) 1-5 /lpf Urine Epithelial Cells (Auto) 0-5 /lpf Urine Bacteria (Auto) NEG Urine Opiates Screen NEG Urine Methadone, Qualitative NEG Urine Barbiturates NEG Urine Phencyclidine (PCP) Level NEG Ur Amphetamine/Methamphetamine NEG MDMA (Ecstasy) Screen NEG Urine Benzodiazepines Screen NEG Urine Cocaine Metabolite NEG Urine Marijuana (THC) NEG Magnesium Level 2.6 mg/dl Ethyl Alcohol mg/dL < 3.0 mg/dl Test 05/30/17 21:45 Prothrombin Time 10.4 SECONDS Prothromb Time International Ratio 1.0 Resident Tracking Resident Involvement: Resident Care Provided Care Provided: Adult Hospital Medicine
[2017-05-31 06:07] LABS: BASO % 0.3 %; BASO ABS # 0.02 K/uL (0-0.2); COMPLETE YES; HEMATOCRIT 38.8 % (42-52); IG% 0.4 %; LYMPH % 26.2 %; LYMPH ABS # 1.81 K/uL (1.2-3.4); MEAN CELL VOLUME 90.4 fL (80-100); MEAN CORPUSCULAR HEMOGLOBIN 30.5 pg (25-34); MEAN CORPUSCULAR HGB CONC 33.8 g/dl (32-36); MEAN PLATELET VOLUME 10.1 fL (7.4-10.4); MONO % 6.4 %; NEUT % 64.7 %; PLATELET COUNT 181 K/uL (130-400); RED BLOOD COUNT 4.29 M/uL (4.7-6.1)
[2017-05-31] MEDS: LEVOTHYROXINE 150 MCG TAB PO SCH (06:21)
[2017-05-31] MEDS: HEPARIN SOD 5000 UNIT/0.5 ML CARP SQ SCH ×3 (06:22→21:20)
[2017-05-31 06:41] LABS: ALT/SGPT 77 U/L (12-78); BLOOD UREA NITROGEN 51 mg/dl (7-18); BUN/CREATININE RATIO 16.5 (10-20); CALCIUM 7.7 mg/dl (8.5-10.1); CARBON DIOXIDE 25 mmol/L (21-32); CHLORIDE 106 mmol/L (98-107); GLUCOSE 130 mg/dl (70-99); POTASSIUM 3.5 mmol/L (3.5-5.1); SODIUM 139 mmol/L (136-145)
[2017-05-31 06:43] LABS: ALKALINE PHOSPHATASE 73 U/L (45-117); AST/SGOT 261 U/L (15-37)
--- NOTE | 2017-05-31 07:56 | DIAGNOSTIC IMAGING REPORT ---
ULTRASOUND KIDNEYS AND BLADDER CLINICAL HISTORY: Acute renal insufficiency. Right flank pain. COMPARISON STUDY: Abdominal CT dated 05/30/2017. TECHNIQUE: Real-time, grayscale, and color flow sonography of the kidneys and bladder is performed. Images are reviewed in the transverse and longitudinal planes. FINDINGS: Kidneys: The kidneys demonstrate mild cortical atrophy. The right kidney measures 10.8 cm in length and the left kidney measures 11.9 cm in length. There is no hydronephrosis. No shadowing renal calculi are identified. There is no sonographic evidence of contour deforming renal mass lesion. No perinephric fluid is identified. Bladder: The bladder is normal in appearance. Bilateral ureteral jets were seen. Upper abdomen: Survey images of the liver show evidence of steatosis. IMPRESSION: 1. The kidneys demonstrate mild cortical atrophy and are without hydronephrosis. 2. The bladder is normal as visualized. 3. Hepatic steatosis. Electronically signed by: Roque Chakraborty M.D. 05/31/2017 7:54 AM Dictated Date/Time: 05/31/2017 7:53 AM
[2017-05-31] MEDS ORDERED: OXYCODONE/ACETAMINOPHEN 10/325MG TAB PO PRN (08:30)
--- NOTE | 2017-05-31 08:54 | Progress Note ---
Internal Med Progress Note Date of Service: May 31, 2017. Provider Documentation: SUBJECTIVE: States having back pain which about 8/10 Denies chest pain, SOB, dizziness Also has R thigh pain No other complaints Denies bowel/bladder incontinence, Weakness, numbness OBJECTIVE: Vital Signs-as noted below Physical Exam: Vitals signs as noted above General Appearance:Obese, no apparent distress Head: normocephalic, Atraumatic Eyes: normal inspection, EOMI, PERRL Neck: supple, Trachea midline Respiratory/Chest: Normal breath sounds, CTA Cardiovascular: S1, S2, No murmur Abdomen/GI:Soft, Non tender, Bowel sounds present Extremities/Musculoskelatal:normal inspection, no edema Neurologic/Psych:AAOX3, grossly no focal neurological deficits Skin: normal color, warm Lab data as noted below. 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 Continue PO Cortef, Humatrope, levothyroxine, Testosterone H/O seizures Continue gabapentin no acute issues currently H/O depression/Anxiety: Resume home meds HTN: Currently hypotensive Hold HTN meds for now Spinal Stenosis: PT/OT Will consider Orthopedics if necessary DVT Px: Heparin SQ Code Status: Full Code Disposition: Monitor in Tele Vital Signs: Date Time Temp Pulse Resp B/P (MAP) Pulse Ox O2 Delivery O2 Flow Rate FiO2 05/31/17 08:15 36.6 71 16 118/73 (88) 92 Room Air 05/31/17 08:15 Room Air 05/31/17 07:34 36.8 61 16 95 2.0 05/31/17 07:00 61 16 101/60 (74) 95 05/31/17 06:45 63 17 88/56 (67) 97 05/31/17 06:30 62 19 107/59 (75) 98 05/31/17 06:15 63 17 91/56 (68) 95 05/31/17 06:00 59 17 108/64 (79) 97 05/31/17 05:45 60 21 106/67 (80) 97 05/31/17 05:43 61 17 105/67 (80) 86 05/31/17 05:31 65 17 172/126 (141) 05/31/17 05:00 63 17 88/62 (71) 99 05/31/17 04:45 64 19 99/59 (72) 96 05/31/17 04:34 93 Room Air 2.0 05/31/17 04:30 66 18 98/56 (70) 97 05/31/17 04:15 65 16 90/56 (67) 98 05/31/17 04:00 63 16 107/56 (73) 05/31/17 03:00 65 18 77/52 (60) 99 05/31/17 02:58 67 16 94/56 (69) 96 05/31/17 02:00 67 19 91/72 (78) 98 05/31/17 01:14 70 18 76/54 (61) 91 05/31/17 01:01 66 23 67/42 (50) 93 05/31/17 00:40 70 20 82/53 (63) 91 05/31/17 00:04 93 Room Air 2.0 05/31/17 00:00 36.8 69 19 87/54 (65) 94 05/30/17 23:00 68 19 91/54 (66) 05/30/17 22:54 68 19 85/51 (62) 95 05/30/17 22:03 74 17 81/57 (65) 93 05/30/17 22:02 73 19 71/37 (48) 88 05/30/17 22:01 73 19 69/41 (50) 88 05/30/17 21:02 80 81/58 (66) 05/30/17 20:21 93 Room Air 2.0 05/30/17 20:01 36.5 78 21 105/64 (78) 92 05/30/17 19:50 36.5 78 24 112/72 93 Room Air 05/30/17 19:04 112/72 05/30/17 19:04 77 23 112/72 (85) 05/30/17 18:40 108/65 05/30/17 18:31 71 20 05/30/17 18:26 71 21 05/30/17 18:20 113/60 05/30/17 18:11 72 21 88/66 05/30/17 18:00 153/86 05/30/17 17:56 73 22 05/30/17 17:50 134/80 05/30/17 17:41 75 19 128/72 05/30/17 17:30 111/65 05/30/17 17:26 75 22 90 05/30/17 17:20 116/51 05/30/17 17:11 75 24 89 05/30/17 17:10 121/61 05/30/17 17:09 110/59 05/30/17 17:07 116/68 05/30/17 17:06 127/60 05/30/17 17:05 120/66 05/30/17 17:04 126/62 05/30/17 17:01 124/66 05/30/17 16:56 75 29 89 05/30/17 16:43 73 05/30/17 16:41 75 18 86 05/30/17 16:39 93/43 05/30/17 16:25 74 20 78/38 95 Room Air 05/30/17 16:25 75/39 05/30/17 15:56 71 20 85/48 95 Room Air 05/30/17 15:31 70 20 77/ 92 Room Air 05/30/17 14:15 67/44 05/30/17 14:10 70 20 73/41 05/30/17 13:54 36.6 90 18 90/53 9 Room Air Lab Results: Results Past 24 Hours Test 05/30/17 14:36 05/30/17 14:40 05/30/17 19:50 05/30/17 20:19 Range/Units Bedside Hemoglobin 15.0 14.0-18.0 g/dl Bedside Hematocrit 44 42-52 % Bedside Sodium 132 135-144 mEq/L Bedside Potassium 4.7 3.3-5.0 mEq/L Bedside Chloride 102 101-112 mEq/L Bedside Total CO2 20 24-31 mEq/l Anion Gap 16.0 14.0 9.0 3-11 mmol/L Bedside Blood Urea Nitrogen 79 7-18 mg/dl Bedside Creatinine 4.9 0.6-1.3 mg/dl Bedside Glucose (other) 100 70-99 mg/dl Bedside Ionized Calcium (Luis Daniel) 0.89 1.12-1.32 mmol/l White Blood Count 8.38 4.8-10.8 K/uL Red Blood Count 4.82 4.7-6.1 M/uL Hemoglobin 14.3 14.0-18.0 g/dL Hematocrit 43.4 42-52 % Mean Corpuscular Volume 90.0 80-100 fL Mean Corpuscular Hemoglobin 29.7 25-34 pg Mean Corpuscular Hemoglobin Concent 32.9 32-36 g/dl Platelet Count 245 130-400 K/uL Mean Platelet Volume 10.5 7.4-10.4 fL Neutrophils (%) (Auto) 69.9 % Lymphocytes (%) (Auto) 23.4 % Monocytes (%) (Auto) 3.9 % Eosinophils (%) (Auto) 2.0 % Basophils (%) (Auto) 0.6 % Neutrophils # (Auto) 5.85 1.4-6.5 K/uL Lymphocytes # (Auto) 1.96 1.2-3.4 K/uL Monocytes # (Auto) 0.33 0.11-0.59 K/uL Eosinophils # (Auto) 0.17 0-0.5 K/uL Basophils # (Auto) 0.05 0-0.2 K/uL RDW Standard Deviation 56.6 36.4-46.3 fL RDW Coefficient of Variation 17.0 11.5-14.5 % Immature Granulocyte % (Auto) 0.2 % Immature Granulocyte # (Auto) 0.02 0.00-0.02 K/uL Sodium Level 134 136 136-145 mmol/L Potassium Level 3.3 3.3 3.5-5.1 mmol/L Chloride Level 97 103 98-107 mmol/L Carbon Dioxide Level 23 24 21-32 mmol/L Blood Urea Nitrogen 53 52 7-18 mg/dl Creatinine 4.60 3.60 0.60-1.40 mg/dl Est Creatinine Clear Calc Drug Dose 26.4 35.2 ml/min Estimated GFR () 15.3 20.6 Estimated GFR (Non- 13.2 17.8 BUN/Creatinine Ratio 11.4 14.5 10-20 Random Glucose 91 107 70-99 mg/dl Calcium Level 8.6 8.0 8.5-10.1 mg/dl Total Bilirubin 0.7 0.2-1 mg/dl Direct Bilirubin 0.2 0-0.2 mg/dl Aspartate Amino Transf (AST/SGOT) 138 15-37 U/L Alanine Aminotransferase (ALT/SGPT) 54 12-78 U/L Alkaline Phosphatase 75 45-117 U/L Troponin I < 0.015 0-0.045 ng/ml Total Protein 7.9 6.4-8.2 gm/dl Albumin 3.5 3.4-5.0 gm/dl Lipase 110 73-393 U/L Acetaminophen Level 4 10-30 ug/ml Urine Color YELLOW Urine Appearance CLEAR CLEAR Urine pH 5.5 4.5-7.5 Urine Specific [place] 1.014 1.000-1.030 Urine Protein 1+ NEG Urine Glucose (UA) NEG NEG Urine Ketones NEG NEG Urine Occult Blood 3+ NEG Urine Nitrite NEG NEG Urine Bilirubin NEG NEG Urine Urobilinogen NEG NEG Urine Leukocyte Esterase NEG NEG Urine WBC (Auto) 1-5 0-5 /hpf Urine RBC (Auto) 0-4 0-4 /hpf Urine Hyaline Casts (Auto) 1-5 0-5 /lpf Urine Epithelial Cells (Auto) 0-5 0-5 /lpf Urine Bacteria (Auto) NEG NEG Urine Opiates Screen NEG NEG Urine Methadone, Qualitative NEG NEG Urine Barbiturates NEG NEG Urine Phencyclidine (PCP) Level NEG NEG Ur Amphetamine/Methamphetamine NEG NEG MDMA (Ecstasy) Screen NEG NEG Urine Benzodiazepines Screen NEG NEG Urine Cocaine Metabolite NEG NEG Urine Marijuana (THC) NEG NEG Magnesium Level 2.6 1.8-2.4 mg/dl Ethyl Alcohol mg/dL < 3.0 0-3 mg/dl Test 05/30/17 21:45 05/31/17 05:55 05/31/17 11:15 Range/Units Prothrombin Time 10.4 9.0-12.0 SECONDS Prothromb Time International Ratio 1.0 0.9-1.1 White Blood Count 6.90 4.8-10.8 K/uL Red Blood Count 4.29 4.7-6.1 M/uL Hemoglobin 13.1 14.0-18.0 g/dL Hematocrit 38.8 42-52 % Mean Corpuscular Volume 90.4 80-100 fL Mean Corpuscular Hemoglobin 30.5 25-34 pg Mean Corpuscular Hemoglobin Concent 33.8 32-36 g/dl Platelet Count 181 130-400 K/uL Mean Platelet Volume 10.1 7.4-10.4 fL Neutrophils (%) (Auto) 64.7 % Lymphocytes (%) (Auto) 26.2 % Monocytes (%) (Auto) 6.4 % Eosinophils (%) (Auto) 2.0 % Basophils (%) (Auto) 0.3 % Neutrophils # (Auto) 4.46 1.4-6.5 K/uL Lymphocytes # (Auto) 1.81 1.2-3.4 K/uL Monocytes # (Auto) 0.44 0.11-0.59 K/uL Eosinophils # (Auto) 0.14 0-0.5 K/uL Basophils # (Auto) 0.02 0-0.2 K/uL RDW Standard Deviation 57.2 36.4-46.3 fL RDW Coefficient of Variation 17.3 11.5-14.5 % Immature Granulocyte % (Auto) 0.4 % Immature Granulocyte # (Auto) 0.03 0.00-0.02 K/uL Sodium Level 139 136-145 mmol/L Potassium Level 3.5 3.5-5.1 mmol/L Chloride Level 106 98-107 mmol/L Carbon Dioxide Level 25 21-32 mmol/L Anion Gap 8.0 3-11 mmol/L Blood Urea Nitrogen 51 7-18 mg/dl Creatinine 3.10 0.60-1.40 mg/dl Est Creatinine Clear Calc Drug Dose 40.8 ml/min Estimated GFR () 24.7 Estimated GFR (Non- 21.3 BUN/Creatinine Ratio 16.5 10-20 Random Glucose 130 70-99 mg/dl Calcium Level 7.7 8.5-10.1 mg/dl Total Bilirubin 0.2 0.2-1 mg/dl Direct Bilirubin < 0.1 0-0.2 mg/dl Aspartate Amino Transf (AST/SGOT) 261 15-37 U/L Alanine Aminotransferase (ALT/SGPT) 77 12-78 U/L Alkaline Phosphatase 73 45-117 U/L Total Protein 6.6 6.4-8.2 gm/dl Albumin 2.8 3.4-5.0 gm/dl Acetaminophen Level 3 10-30 ug/ml Bedside Glucose 123 70-99 mg/dl
[2017-05-31] MEDS: SOMATROPIN SCH ×4 (09:16→23:45)
[2017-05-31] MEDS: HYDROCORTISONE 10 MG TAB PO SCH ×2 (09:18→21:14)
[2017-05-31] MEDS: GABAPENTIN 600 MG TAB PO SCH ×3 (09:19→21:15)
[2017-05-31] MEDS: PANTOprazole SOD 40 MG TAB PO SCH (09:19)
[2017-05-31] MEDS: THIAMINE HCL 100 MG TAB PO SCH (09:20)
[2017-05-31] MEDS: DULOXETINE HCL 60 MG CAP PO SCH (10:02)
[2017-05-31] MEDS: SERTRALINE HCL 50 MG TAB PO SCH ×2 (10:03→21:15)
[2017-05-31] MEDS ORDERED: NURSING VERBAL MED ORDER ONE ×4 (11:30→18:45)
[2017-05-31] MEDS: LIDODERM (LIDOCAINE) PATCH 5% TD SCH (11:47)
[2017-05-31] MEDS ORDERED: SODIUM CHLORIDE 0.9% 500ML 500 ML IV SCH (15:30)
[2017-05-31] MEDS: NICOTINE 21 MG/24 HR TDSY TD SCH (17:12)
[2017-05-31] MEDS: OXYCODONE/ACETAMINOPHEN 10/325MG TAB PO PRN (19:05)
[2017-06-01] VITALS: BP 110/63; PULSE 68; TEMP 36.6; O2SAT 92; O2SAT 93
[2017-06-01] MEDS: LEVOTHYROXINE 150 MCG TAB PO SCH (06:17)
[2017-06-01] MEDS: HEPARIN SOD 5000 UNIT/0.5 ML CARP SQ SCH (06:23)
[2017-06-01 07:36] VITALS: BP 130/86; PULSE 59; TEMP 36.6; O2SAT 96
[2017-06-01 07:49] LABS: BASO % 0.9 %; BASO ABS # 0.05 K/uL (0-0.2); COMPLETE YES; EOS % 7.7 %; HEMATOCRIT 38.4 % (42-52); IG% 0.5 %; LYMPH % 46.8 %; LYMPH ABS # 2.69 K/uL (1.2-3.4); MEAN CELL VOLUME 91.6 fL (80-100); MEAN CORPUSCULAR HEMOGLOBIN 29.8 pg (25-34); MEAN CORPUSCULAR HGB CONC 32.6 g/dl (32-36); MEAN PLATELET VOLUME 10.5 fL (7.4-10.4); MONO % 7.5 %; NEUT % 36.6 %; PLATELET COUNT 182 K/uL (130-400); RED BLOOD COUNT 4.19 M/uL (4.7-6.1); WHITE BLOOD COUNT 5.75 K/uL (4.8-10.8)
[2017-06-01] MEDS: SOMATROPIN SCH (08:00)
--- NOTE | 2017-06-01 08:07 | Progress Note ---
Internal Med Progress Note Date of Service: Jun 01, 2017. Provider Documentation: SUBJECTIVE: States having chronic back pain and Right Knee pain Denies chest pain, SOB, dizziness No other complaints Denies bowel/bladder incontinence, Weakness, numbness OBJECTIVE: Vital Signs-as noted below Physical Exam: Vitals signs as noted above General Appearance:Obese, no apparent distress Head: normocephalic, Atraumatic Eyes: normal inspection, EOMI, PERRL Neck: supple, Trachea midline Respiratory/Chest: Normal breath sounds, CTA Cardiovascular: S1, S2, No murmur Abdomen/GI:Soft, Non tender, Bowel sounds present Extremities/Musculoskelatal:normal inspection, no edema Neurologic/Psych:AAOX3, grossly no focal neurological deficits Skin: normal color, warm Lab data as noted below. 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 DVT Px: Heparin SQ Code Status: Full Code Disposition: Plan to discharge home today Follow up with Primary Care on 06/04/17 at 1:00pm Seek immediate medical attention if your symptoms reoccur or worsen Vital Signs: Date Time Temp Pulse Resp B/P (MAP) Pulse Ox O2 Delivery O2 Flow Rate FiO2 06/01/17 07:36 36.6 59 18 130/86 (101) 96 06/01/17 00:00 93 Room Air 06/01/17 00:00 36.6 68 20 110/63 (79) 92 Room Air 05/31/17 19:04 70 130/71 (90) 05/31/17 16:00 Room Air 05/31/17 15:05 36.9 70 20 87/57 (67) 95 Lab Results: Results Past 24 Hours Test 05/31/17 11:15 05/31/17 16:19 05/31/17 20:18 06/01/17 07:26 Range/Units Bedside Glucose 123 119 119 81 70-99 mg/dl Test 06/01/17 07:38 06/01/17 08:31 Range/Units White Blood Count 5.75 4.8-10.8 K/uL Red Blood Count 4.19 4.7-6.1 M/uL Hemoglobin 12.5 14.0-18.0 g/dL Hematocrit 38.4 42-52 % Mean Corpuscular Volume 91.6 80-100 fL Mean Corpuscular Hemoglobin 29.8 25-34 pg Mean Corpuscular Hemoglobin Concent 32.6 32-36 g/dl Platelet Count 182 130-400 K/uL Mean Platelet Volume 10.5 7.4-10.4 fL Neutrophils (%) (Auto) 36.6 % Lymphocytes (%) (Auto) 46.8 % Monocytes (%) (Auto) 7.5 % Eosinophils (%) (Auto) 7.7 % Basophils (%) (Auto) 0.9 % Neutrophils # (Auto) 2.11 1.4-6.5 K/uL Lymphocytes # (Auto) 2.69 1.2-3.4 K/uL Monocytes # (Auto) 0.43 0.11-0.59 K/uL Eosinophils # (Auto) 0.44 0-0.5 K/uL Basophils # (Auto) 0.05 0-0.2 K/uL RDW Standard Deviation 59.0 36.4-46.3 fL RDW Coefficient of Variation 17.8 11.5-14.5 % Immature Granulocyte % (Auto) 0.5 % Immature Granulocyte # (Auto) 0.03 0.00-0.02 K/uL Sodium Level 142 136-145 mmol/L Potassium Level 3.5-5.1 mmol/L Chloride Level 108 98-107 mmol/L Carbon Dioxide Level 29 21-32 mmol/L Anion Gap 5.0 3-11 mmol/L Blood Urea Nitrogen 35 7-18 mg/dl Creatinine 1.30 0.60-1.40 mg/dl Est Creatinine Clear Calc Drug Dose 97.0 ml/min Estimated GFR () 70.7 Estimated GFR (Non- 61.0 BUN/Creatinine Ratio 26.8 10-20 Random Glucose 89 70-99 mg/dl Calcium Level 8.3 8.5-10.1 mg/dl
[2017-06-01 08:19] LABS: BLOOD UREA NITROGEN 35 mg/dl (7-18); BUN/CREATININE RATIO 26.8 (10-20); CALCIUM 8.3 mg/dl (8.5-10.1); CARBON DIOXIDE 29 mmol/L (21-32); CHLORIDE 108 mmol/L (98-107); GLUCOSE 89 mg/dl (70-99); SODIUM 142 mmol/L (136-145)
[2017-06-01] MEDS: LIDODERM (LIDOCAINE) PATCH 5% TD SCH (08:24)
[2017-06-01] MEDS: HYDROCORTISONE 10 MG TAB PO SCH (08:27)
[2017-06-01] MEDS: DULOXETINE HCL 60 MG CAP PO SCH (08:28)
[2017-06-01] MEDS: PANTOprazole SOD 40 MG TAB PO SCH (08:29)
[2017-06-01] MEDS: GABAPENTIN 600 MG TAB PO SCH ×2 (08:29→13:50)
[2017-06-01] MEDS: THIAMINE HCL 100 MG TAB PO SCH (08:30)
[2017-06-01] MEDS: SERTRALINE HCL 50 MG TAB PO SCH (08:30)
[2017-06-01] MEDS: OXYCODONE/ACETAMINOPHEN 10/325MG TAB PO PRN (08:31)
[2017-06-01] MEDS: NICOTINE 21 MG/24 HR TDSY TD SCH (08:31)
--- NOTE | 2017-06-01 08:55 | Discharge Instructions ---
Discharge Instructions Date of Service Jun 01, 2017. Admission Reason for Admission: Acute Renal Failure, Hypotension Discharge Discharge Diagnosis / Problem: COURTNEY, Toxic Encephalopathy Discharge Goals Goal(s): Decrease discomfort, Improve function Activity Recommendations Activity Limitations: resume your previous activity Exercise/Sports Limitations: as tolerated Driving or Machine Use: Do not drive . Instructions / Follow-Up Instructions / Follow-Up Follow up with Primary Care on 06/04/17 at 1:00pm Seek immediate medical attention if your symptoms reoccur or worsen Current Hospital Diet Patient's current hospital diet: Renal Diet Discharge Diet Recommended Diet: AHA Diet (Heart Healthy), Renal Diet Pending Studies Studies pending at discharge: no Medical Emergencies . Who to Call and When: Medical Emergencies: If at any time you feel your situation is an emergency, please call 911 immediately. . Non-Emergent Contact Non-Emergency issues call your: Primary Care Provider Call Non-Emergent contact if: you have a fever, your pain is not controlled, your pain is worsening, your pain is unusual for you, you have any medication questions . . "Provider Documentation" section prepared by Steven Bennett. . VTE Core Measure Inpt VTE Proph given/why not?: Unfractionated heparin SQ
[2017-06-01] MEDS ORDERED: ATV1 PO ×3 (08:57→09:01)
--- NOTE | 2017-06-01 08:59 | Discharge Summary ---
Discharge Summary Date of Service Jun 01, 2017. Discharge Summary Admission Date: May 30, 2017 at 17:54 Discharge Date: Jun 01, 2017 Discharge Disposition: Home Principal Diagnosis: COURTNEY, Toxic Encephalopathy Procedures: CT Lumbar Spine: 1. No acute lumbar spine fracture or subluxation. 2. Old L4 compression fracture. Mild T12 compression fracture which is age-indeterminate but likely old. 3. Moderate to severe central canal stenosis at L3-L4 and L4-L5 which is suboptimally assessed by CT. Moderate to severe multilevel neural foraminal stenosis most pronounced at the L3-L4, L4-L5 and L5-S1 levels. CT ABD: 1. No urinary calculi or hydronephrosis. 2. Mild gallbladder distention with possible layering material within the gallbladder. No significant pericholecystic infiltration. A biliary ultrasound could be obtained if right upper quadrant pain. 3. Fatty liver. 4. No bowel obstruction. Normal appendix. Renal USD: 1. The kidneys demonstrate mild cortical atrophy and are without hydronephrosis. 2. The bladder is normal as visualized. 3. Hepatic steatosis. Consultations: Casing Trimmer Pending Studies/Follow-Up: Follow up with Primary Care on 06/04/17 at 1:00pm Seek immediate medical attention if your symptoms reoccur or worsen Medication Reconciliation Continued Medications: Atenolol (Atenolol) 50 Mg Tab 50 MG PO DAILY Calcium Carbonate (Tums) 500 Mg Chew 2-3 TABS PO PRN Duloxetine HCl (Duloxetine HCl) 60 Mg Cap 120 MG PO QAM for 30 Days, #60 CAP 3 Refills Folic Acid (Folic Acid) 1 Mg Tab 1 MG PO QAM for 30 Days, #30 TAB 4 Refills Gabapentin (Neurontin) 600 Mg Tab 1 TAB PO TID for 30 Days, #90 TAB 3 Refills Hydrocortisone (Cortef) 10 Mg Tab 10 MG PO QPM Hydrocortisone (Cortef) 10 Mg Tab 20 MG PO QAM Levothyroxine Sodium (Synthroid) 300 Mcg Tab 300 MCG PO DAILY, #30 Lisinopril (Lisinopril) 20 Mg Tab 20 MG PO QAM for 30 Days, #30 TAB 3 Refills Lorazepam (Lorazepam) 1 Mg Tab 0.5 MG PO TID, #1 (This prescription has been renewed) Omeprazole (Prilosec) 40 Mg Cap 40 MG PO DAILY Oxycodone/Acetaminophen 10MG/325MG (Percocet 10MG/325MG) Tab 1 TAB PO Q12 PRN for Pain, TAB Sertraline HCl (Sertraline HCl) 50 Mg Tab 50 MG PO BID, #60 Somatropin (Humatrope) 6 Mg Inj 1 EA SQ DAILY Sumatriptan Succinate (Imitrex) 50 Mg Tab 1 TAB PO UD PRN for Migraine for 30 Days, #9 TAB 1 Refill IMITREX 50MG ONE TAB DAILY PRN MIGRAINE HEADACHE Testosterone (Testosterone) 1 % Gel 1 APPLN TOP UD, #150 Thiamine HCl (Vitamin B-1) 100 Mg Tab 100 MG PO QAM for 30 Days, #30 TAB 4 Refills Zolpidem Tartrate (Zolpidem Tartrate) 10 Mg Tab 10 MG PO HS, #30 Discontinued Medications: Acetaminophen (Tylenol) 500 Mg Tab 1000 MG PO TID PRN for Pain, TAB Admission Information HPI (per Admitting provider): Patient is a 56 Yr male with PMH of Adrenal Insufficiency, Panhypopituitary, Seizure disorder, Depression, Substance abuse disorder, CKD III, Spinal stenosis , HTN, Anxiety disorder Prior history of alcohol abuse disorder and other problems presents with history of chronic lower back pain which has been worsening especially since last 2 weeks. Also reports chronic right knee pain and is scheduled for surgery next month for replacement. History is not reliable as patient is lethargic while in ED. He states back pain is non radiating and has been taking 8 Extra strength Tylenol and 1-2 Percocet per days since at least last 2 weeks for pain control. Also has been following with a psychiatrist for anxiety and depression and admits to snorting his prescription medications. informed that he has been driving without License to leaf size picker his prescriptions and unsure where he acquired the Percocet from. also reports he has been very drowsy lately. Denies any history of chest pain, SOB, fever, chills, abdominal pain, nausea, vomiting, dizziness, history of fall, LOC, bowel/bladder Incontinence, numbness, speech problems, facial deformity. Denies using any illegal meds or Alcohol use lately. States he has some leg weakness and has been using cane to ambulate. Physical Exam (per Admitting): General Appearance: no apparent distress, + obese, + pertinent finding ( Lethargic) Head: normocephalic, atraumatic Eyes: normal inspection, PERRL, EOMI ENT: normal ENT inspection, hearing grossly normal Neck: supple, trachea midline Respiratory/Chest: chest non-tender, lungs clear, normal breath sounds, no respiratory distress Cardiovascular: regular rate, rhythm, no edema, no murmur Abdomen/GI: normal bowel sounds, non tender, soft Back: normal inspection Extremities/Musculoskelatal: normal inspection, no pedal edema Neurologic/Psych: department clerk II-XII nml as tested, no motor/sensory deficits, oriented x 3, + pertinent finding (Drowsy) Skin: normal color, warm/dry Hospital Course COURTNEY on CKD III Baseline Cr:1.5 Cr:4.9>>.3.1>>> 1.3 S/P IV fluids Monitor renal function Hold ACEI, Avoid NSAIDs Avoid nephro toxic agents Renal USD: mild cortical atrophy without hydronephrosis Hypotension: Likely secondary to dehydration Also a component of adrenal Insufficiency BP more stable S/P IV fluids Monitor Possible sleep apnea could be contributing Altered Mental Status: Metabolic/Toxic Encephalopathy: [facility] Also has renal insufficiency Tox screen negative Neuro checks Resolved H/O Adrenal Insufficiency/Carrillo hypopituitarism: s/p Pituitary Resection Continue PO Cortef, Humatrope, levothyroxine, Testosterone H/O seizures Continue gabapentin no acute issues currently H/O depression/Anxiety: Continue home meds Sleep Apnea: Not using CPAP secondary to Intolerance HTN: Plan to resume HTN meds when able Spinal Stenosis: PT/OT Will consider Orthopedics if necessary Off Note: Patient reports he is planned for right knee surgery in few days and he would like to defer any surgical procedure for spine if needed for now. DVT Px: Heparin SQ Code Status: Full Code Disposition: Plan to discharge home today Follow up with Primary Care on 06/04/17 at 1:00pm Seek immediate medical attention if your symptoms reoccur or worsen Total time spent on discharge = 36 minutes This includes examination of the patient, discharge planning, medication reconciliation, and communication with other providers. Discharge Instructions Discharge Instructions Date of Service Jun 01, 2017. Admission Reason for Admission: Acute Renal Failure, Hypotension Discharge Discharge Diagnosis / Problem: COURTNEY, Toxic Encephalopathy Discharge Goals Goal(s): Decrease discomfort, Improve function Activity Recommendations Activity Limitations: resume your previous activity Exercise/Sports Limitations: as tolerated Driving or Machine Use: Do not drive . Instructions / Follow-Up Instructions / Follow-Up Follow up with Primary Care on 06/04/17 at 1:00pm Seek immediate medical attention if your symptoms reoccur or worsen Current Hospital Diet Patient's current hospital diet: Renal Diet Discharge Diet Recommended Diet: AHA Diet (Heart Healthy), Renal Diet Pending Studies Studies pending at discharge: no Medical Emergencies . Who to Call and When: Medical Emergencies: If at any time you feel your situation is an emergency, please call 911 immediately. . Non-Emergent Contact Non-Emergency issues call your: Primary Care Provider Call Non-Emergent contact if: you have a fever, your pain is not controlled, your pain is worsening, your pain is unusual for you, you have any medication questions . . "Provider Documentation" section prepared by Steven Bennett. . VTE Core Measure Inpt VTE Proph given/why not?: Unfractionated heparin SQ
[2017-06-01 10:34] VITALS: BP 130/86; PULSE 59; TEMP 36.6; O2SAT 96
--- NOTE | 2017-06-01 12:08 | Progress Note ---
Post ICU Progress Note Date & Time Jun 01, 2017 at 12:06 Vital Signs Vital Signs Past 12 Hours Date Time Temp Pulse Resp B/P (MAP) Pulse Ox O2 Delivery O2 Flow Rate FiO2 06/01/17 10:34 36.6 59 18 96 Room Air 06/01/17 08:00 Room Air 06/01/17 07:36 36.6 59 18 130/86 (101) 96 Notes Mental Status: alert / awake Nausea / Vomiting: adequately controlled Pain: improving with treatment Airway Patency, RR, SpO2: stable & adequate BP & HR: stable & adequate Patient was admitted secondary to a GI and possible polysubstance abuse. Patient was evaluated today and reports feeling much better at this time. He offers no complaints. He is expected to be discharged today. Consider outpatient follow up in 1 to 2 weeks with: PCP Repeat imaging needed: None Follow up cultures: None Reviewed progress notes, labs, and inpatient medication list Continue current management Additional recommendations: None at this time. Please feel free to reconsult as needed. Critical Care Team will sign off at this time. Consults & Procedures Consultants: Hospitalist: Dr. Bennett Procedures: Nil
== END 2017-06-01 14:00 | disposition home or self-care (01) | DRG 682 ==
LOC: C.EDB 13:43 → C.MSICU 17:54 → ENRESERV 17:59 → C.MS2W 05-31 08:15
PROVIDERS: ADMIT Internal Medicine; ATTEND Internal Medicine
DX: N17.9 Acute kidney failure, unspecified (principal); G92 Toxic encephalopathy; Z82.49 Family history of ischemic heart disease and other diseases of the circulatory system; R10.9 Unspecified abdominal pain; G40.909 Epilepsy, unspecified, not intractable, without status epilepticus; F32.9 Major depressive disorder, single episode, unspecified; M48.00 Spinal stenosis, site unspecified; F10.10 Alcohol abuse, uncomplicated; I95.9 Hypotension, unspecified; E86.0 Dehydration; T42.6X1A Poisoning by other antiepileptic and sedative-hypnotic drugs, accidental (unintentional), initial encounter; N18.3 Chronic kidney disease, stage 3 (moderate); I12.9 Hypertensive chronic kidney disease with stage 1 through stage 4 chronic kidney disease, or unspecified chronic kidney disease; E89.3 Postprocedural hypopituitarism

== ENCOUNTER 2017-06-02 19:15 | Emergency (ER) | payer BC, OTHER ==
[~2017-06-02] VITALS: Ht 177.8 cm; Wt 153.0 kg
[~2017-06-02 19:15] MED LIST changes: -ACET-1256 PO; +ATV1 PO; +CALC500C3 PO; -CHOL2000 PO; +OXYC-106 PO; -SLWMEC PO; +TEST1GEL15 TOP; -TEST1INJ2 IM; -TUMS PO; +ZOLP10TA6 PO
[2017-06-02 19:31] VITALS: TEMP 36.6; Ht 177.8 cm; Wt 153.0 kg
[2017-06-02 20:12] VITALS: O2SAT 95
[2017-06-02 20:57] LABS: BASO % 0.5 %; BASO ABS # 0.04 K/uL (0-0.2); COMPLETE YES; EOS % 3.4 %; HEMATOCRIT 40.2 % (42-52); IG% 1.3 %; LYMPH % 28.4 %; LYMPH ABS # 2.42 K/uL (1.2-3.4); MEAN CELL VOLUME 91.6 fL (80-100); MEAN CORPUSCULAR HEMOGLOBIN 30.5 pg (25-34); MEAN CORPUSCULAR HGB CONC 33.3 g/dl (32-36); MEAN PLATELET VOLUME 9.9 fL (7.4-10.4); MONO % 6.1 %; NEUT % 60.3 %; PLATELET COUNT 206 K/uL (130-400); RED BLOOD COUNT 4.39 M/uL (4.7-6.1); WHITE BLOOD COUNT 8.53 K/uL (4.8-10.8)
[2017-06-02 21:00] LABS: VEN BLD GAS O2 SATURATION 63.5 %; VEN BLOOD GAS BASE EXCESS 2.5 mEq/L
[2017-06-02] MEDS ORDERED: NALOXONE HCL 0.4 MG/1 ML VIAL/CARP IV STA (21:04)
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
[2017-06-02 21:20] LABS: CALCIUM 8.5 mg/dl (8.5-10.1); CREATININE 1.4 mg/dl (0.60-1.40); POTASSIUM 3.3 mmol/L (3.5-5.1)
[2017-06-02 21:27] LABS: ACETAMINOPHEN 9 ug/ml (10-30)
[2017-06-02 21:31] LABS: ALB/GLOB RATIO 0.8 (0.9-2); THYROID STIMULATING HORMONE 0.089 uIu/ml (0.300-4.500)
[2017-06-02] MEDS ORDERED: SODIUM CHLORIDE 0.9% 1000ML 1,000 ML IV STA (21:57)
[2017-06-02 22:49] LABS: URINE APPEARANCE CLEAR (CLEAR); URINE BILIRUBIN NEG (NEG); URINE COLOR YELLOW; URINE NITRITE NEG (NEG); URINE PH 5.5 (4.5-7.5); URINE SPECIFIC GRAVITY 1.023 (1.000-1.030); UROBILINOGEN NEG (NEG); ZZUR CULT IF INDIC CLEAN CATCH NO
[2017-06-02 22:50] LABS: MANUAL MICROSCOPIC REQUIRED? NO; REVIEW REQ? NO
[2017-06-02 23:08] LABS: BENZODIAZEPINE, URINE NEG (NEG); COCAINE,URINE NEG (NEG); PHENCYCLIDINE, URINE NEG (NEG)
[2017-06-02 23:56] VITALS: BP 134/90; PULSE 77; O2SAT 93
[2017-06-08 18:35] LABS: COD UR NEGATIVE NG/ML (CUTOFF=50); HYDROCOD UR NEGATIVE NG/ML (CUTOFF=50); HYDROMOR UR NEGATIVE NG/ML (CUTOFF=50); MORPHINE UR NEGATIVE NG/ML (CUTOFF=50); NORHYDROCODONE CONF UR NEGATIVE NG/ML (CUTOFF=50); OXYMORPH UR 870 NG/ML (CUTOFF=50); SYNTHETIC CANNABINOIDS QL URIN NEGATIVE (Negative)
== END 2017-06-02 23:56 | disposition home or self-care (01) ==
LOC: C.EDB 19:20 → C.EDA 23:56
DX: T88.7XXA Unspecified adverse effect of drug or medicament, initial encounter (principal); X58.XXXA Exposure to other specified factors, initial encounter; M25.569 Pain in unspecified knee; I12.9 Hypertensive chronic kidney disease with stage 1 through stage 4 chronic kidney disease, or unspecified chronic kidney disease; N18.3 Chronic kidney disease, stage 3 (moderate); F32.9 Major depressive disorder, single episode, unspecified; F41.9 Anxiety disorder, unspecified; K21.9 Gastro-esophageal reflux disease without esophagitis; E78.5 Hyperlipidemia, unspecified; E03.9 Hypothyroidism, unspecified; M19.90 Unspecified osteoarthritis, unspecified site; E66.01 Morbid (severe) obesity due to excess calories; Z68.42 Body mass index [BMI] 45.0-49.9, adult; E23.0 Hypopituitarism; I44.0 Atrioventricular block, first degree; G40.909 Epilepsy, unspecified, not intractable, without status epilepticus; Z86.39 Personal history of other endocrine, nutritional and metabolic disease; Z82.49 Family history of ischemic heart disease and other diseases of the circulatory system

== ENCOUNTER → 2017-06-29 | Outpatient (CLI) | payer BC, OTHER | END | disposition home or self-care (01) | LOC: C.RDSM 09:01 | PROVIDERS: ATTEND Physical Medicine & Rehabilitation Sports Medicine | DX: M17.11 Unilateral primary osteoarthritis, right knee (principal) ==

== ENCOUNTER 2017-12-23 04:46 | Inpatient (IN) | payer BC, OTHER ==
[2017-11-27 10:04] VITALS: Ht 177.8 cm; Wt 153.9 kg
--- NOTE | 2017-11-27 10:46 | PAT Medication Instructions ---
Service Date Nov 27, 2017. Current Home Medication List Acetaminophen (Tylenol), 2,000 MG PO PRN Atenolol (Atenolol), 50 MG PO QAM Calcium Carbonate (Tums), 2-3 TABS PO PRN Diphenhydramine Hcl (Benadryl Allergy), 50 MG PO PRN Escitalopram Oxalate (Lexapro), 30 MG PO QAM Folic Acid (Folvite), 1 MG PO QAM Gabapentin (Neurontin), 1 TAB PO TID PRN for PRN Hydrocortisone (Cortef), 10 MG PO QPM Hydrocortisone (Cortef), 20 MG PO QAM Levothyroxine Sodium (Synthroid), 300 MCG PO QAM Lisinopril (Zestril), 20 MG PO QAM Lorazepam (Ativan), 1 MG PO TID Sertraline HCl (Sertraline HCl), 100 MG PO QAM Somatropin (Humatrope), 1 EA SQ DAILY Sumatriptan Succinate (Imitrex), 50 MG PO PRN PRN for UD Testosterone (Testosterone), 1 APPLN TOP UD Thiamine Hcl (Vitamin B-1), 100 MG PO QAM Zolpidem Tartrate (Zolpidem Tartrate), 10 MG PO HS [Lasix], 1 TAB PO PRN Medication Instructions For Your Scheduled Surgery -Check with your prescriber for instructions for: Somatropin (Humatrope), 1 EA SQ DAILY - Hold the following medications 24 hours prior to surgery: Testosterone (Testosterone), 1 APPLN TOP UD - Hold the following medications the morning of surgery: Calcium Carbonate (Tums), 2-3 TABS PO PRN Diphenhydramine Hcl (Benadryl Allergy), 50 MG PO PRN Folic Acid (Folvite), 1 MG PO QAM Lisinopril (Zestril), 20 MG PO QAM Thiamine Hcl (Vitamin B-1), 100 MG PO QAM [Lasix], 1 TAB PO PRN - Take the following medications the morning of surgery with a sip of water: Acetaminophen (Tylenol), 2,000 MG PO PRN (if needed) Atenolol (Atenolol), 50 MG PO QAM Escitalopram Oxalate (Lexapro), 30 MG PO QAM Gabapentin (Neurontin), 1 TAB PO TID PRN for PRN (if needed) Levothyroxine Sodium (Synthroid), 300 MCG PO QAM Lorazepam (Ativan), 1 MG PO TID Sertraline HCl (Sertraline HCl), 100 MG PO QAM Sumatriptan Succinate (Imitrex), 50 MG PO PRN PRN for UD (if needed) - Take the following medications as scheduled the night before surgery: Calcium Carbonate (Tums), 2-3 TABS PO PRN (if needed) Diphenhydramine Hcl (Benadryl Allergy), 50 MG PO PRN (if needed) Gabapentin (Neurontin), 1 TAB PO TID PRN for PRN (if needed) Hydrocortisone (Cortef), 10 MG PO QPM Lorazepam (Ativan), 1 MG PO TID Sumatriptan Succinate (Imitrex), 50 MG PO PRN PRN for UD (if needed) [Lasix], 1 TAB PO PRN (if needed) Zolpidem Tartrate (Zolpidem Tartrate), 10 MG PO HS If you have any questions please call us at [phone] or [phone] or [phone]
[2017-11-27 12:07] LABS: BASO % 0.3 %; BASO ABS # 0.02 K/uL (0-0.2); EOS % 1.8 %; EOS ABS # 0.13 K/uL (0-0.5); HEMATOCRIT 44.1 % (42-52); HEMOGLOBIN 14.9 g/dL (14.0-18.0); IG# 0.01 K/uL (0.00-0.02); LYMPH % 34.1 %; LYMPH ABS # 2.44 K/uL (1.2-3.4); MEAN CELL VOLUME 92.6 fL (80-100); MEAN CORPUSCULAR HEMOGLOBIN 31.3 pg (25-34); MEAN CORPUSCULAR HGB CONC 33.8 g/dl (32-36); MONO % 6.6 %; MONO ABS # 0.47 K/uL (0.11-0.59); NEUT % 57.1 %; NEUT ABS # 4.08 K/uL (1.4-6.5); PLATELET COUNT 263 K/uL (130-400); RED CELL DISTRIBUTION WIDTH CV 12.9 % (11.5-14.5); RED CELL DISTRIBUTION WIDTH SD 43.7 fL (36.4-46.3); WHITE BLOOD COUNT 7.15 K/uL (4.8-10.8)
[2017-11-27 12:16] LABS: PTT PATIENT 26.9 SECONDS (21.0-31.0)
[2017-11-27 13:56] LABS: CALCIUM 9.7 mg/dl (8.5-10.1); CREATININE 0.95 mg/dl (0.60-1.40)
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
[2017-12-23] VITALS (9 sets, daily range): BP systolic 112–132; BP diastolic 65–81; PULSE 58–102; TEMP 36.4–37.5; O2SAT 92–97
[~2017-12-23] VITALS: Ht 177.8 cm; Wt 153.9 kg
[~2017-12-23 04:46] MED LIST changes: +ACET-1256 PO; +ATV/1 PO; -ATV1 PO; -CYM60 PO; +DIPH1TAB87 PO; +ESCI1TAB10 PO; -FLV1 PO; +FOLI1TAB8 PO; +LASIX PO; +LISI-725 PO; -LSN20 PO; -OMEP40CA41 PO; -OXYC-106 PO; +THIA100T11 PO; -THM100 PO
[2017-12-23] MEDS ORDERED: LACTATED RINGER'S 1000ML 1,000 ML IV SCH (06:00)
[2017-12-23] MEDS ORDERED: ROPIVACAINE 5MG/ML 30 ML 150 MG, BUPIVACAINE/EPINEPHR 0.5% MPF 30 ML, DEXAMETHASONE INJ... INFIL SCH ×6 (06:00)
[2017-12-23] MEDS ORDERED: CEFAZOLIN 3000MG IV PUSH 22.5 ML IV SCH (06:00)
[2017-12-23] MEDS ORDERED: TRANEXAMIC ACID INJ 1,000 MG x 2 Bags IV SCH ×2 (06:00)
[2017-12-23] MEDS ORDERED: LACTATED RINGER'S 1000ML IV SCH (06:00)
[2017-12-23] MEDS ORDERED: HYDROCORTISONE IV 100 MG in SYRINGE 0 ML IV SCH (06:00)
--- NOTE | 2017-12-23 06:17 | History & Physical Bridge Note ---
H&P Re-Evaluation Bridge Note: I have examined the patient, reviewed the History & Physical and in the interval since the performance of the History & Physical I have noted the following changes of clinical significance:consent obtained. No changes noted
[2017-12-23] MEDS ORDERED: BUPIVACAINE 0.5 % 5 MG/1 ML PF 10ML VIAL ONE (06:23)
[2017-12-23] MEDS ORDERED: ROPIVACAINE 0.5% 5 MG/ML 30 ML VIAL ONE (06:24)
[2017-12-23] MEDS ORDERED: ORTHO JOINT ANESTHETIC ONE (06:29)
[2017-12-23] MEDS ORDERED: POVIDONE-IODINE OP SOLN 30 ML BTL ONE (06:29)
[2017-12-23] MEDS ORDERED: FENTANYL CITRATE INJ 50 MCG/1 ML 2 ML VIAL ONE (06:35)
[2017-12-23] MEDS ORDERED: LIDOCAINE HCL 2% 2 ML VIAL (20MG/ML) ONE (06:35)
[2017-12-23] MEDS ORDERED: MIDAZOLAM HCL 1 MG/ML 2ML VIAL ONE (06:35)
[2017-12-23] MEDS ORDERED: PROPOFOL IV EMULSION 10 MG/ML 20 ML VIAL IV ONE ×4 (06:35→08:36)
[2017-12-23] MEDS ORDERED: EpHEDrine SULFATE 50MG/5ML SYR ONE (07:53)
[2017-12-23] MEDS ORDERED: PHENYLEPHRINE 100MCG/ML 5ML SYR ONE (07:53)
[2017-12-23] MEDS ORDERED: EpHEDrine SULFATE INJ 50 MG/ML AMP IV PRN (08:00)
[2017-12-23] MEDS ORDERED: ATROPINE SULFATE 0.1 MG/ML 5ML SYR IV PRN (08:00)
--- NOTE | 2017-12-23 08:50 | [facility] Post Operative Brief Note ---
Immediate Operative Summary Operative Date Dec 23, 2017. Pre-Operative Diagnosis Right Knee End-Stage Degenerative Joint Disease Post-Operative Diagnosis Right Knee End-Stage Degenerative Joint Disease Procedure(s) Performed Right Total Knee Arthroplasty Surgeon Dr. Joshua Oiler Bander Surgeon(s) Dr. Fitzgerald (Fellow)/KRISTI Khalil Estimated Blood Loss 100 ml Findings Consistent with Post-Op Diagnosis Fluids (cc crystalloids) 1200cc Specimens A. Right Knee Bone and Tissue Drains None Anesthesia Type MAC Spinal Regional Complication(s) none Disposition Accompanied Pt To Recover: no Disposition: Recovery Room / PACU
--- NOTE | 2017-12-23 09:13 | OPERATIVE REPORT ---
DATE OF OPERATION: 12/23/2017 SURGEON: Dr. Joshua. SQL SERVER DEVELOPER: Lia. SECOND SQL SERVER DEVELOPER: Davidson Cunningham PA-C. PREOPERATIVE DIAGNOSIS: Osteoarthritis with severe deformity, morbid obese, right knee. POSTOPERATIVE DIAGNOSIS: Same. OPERATION PERFORMED: Cemented right total knee replacement, correction of deformity. PERIOPERATIVE SITUATION: Medically cleared male with intractable knee pain, has marked varus flexion deformity. X-rays reveal end-stage tricompartmental disease. At this point in time, he is cleared for surgery. High risk based on his body type and comorbidities. OPERATION: The patient appropriately identified, site verified, consent verified. The right lower extremity was prepped and draped in usual routine fashion. Confirmed that consent was there, confirmed right side, confirmed that antibiotic 3 grams of Ancef given. Tourniquet time was approximately 70 minutes. Midline exposure approach. Tourniquet was inflated after exsanguination of limb with a rubber Esmarch bandage. Pressure was about 300. Midline exposure utilized. There was extremely tight extensor mechanism, this was released as much as possible distally along the lateral retinacular areas and then ultimately needed a quad snip to get the patella to move. All the osteophytes were then resected along the margin of the femur, margin of the tibia and margin of the patella. Distal femur was then resected 14 mm, proximal tibia was then resected 4 mm. It was sized to a 5 on the femur and the tibia. The cutting block applied and the anterior and posterior condylar and chamfer cuts made. The flexion gap was then checked, it was still tight slightly medially and required posterior capsular release, then it was excellent. The femur was then box cut and the size 5 trial fit well. The tibia was then broached and reamed to a size 5. Trial reduction with a 10 and a 12.5 spacer, noted that 12.5 took away a little bit of hyperextension, so that was elected to be used. Patella was sized to 38, it was resected leaving 14 mm and then the seating holes made and the trial fit well. The wound was then irrigated with Betadine and Pulsavac, injected with Orthomix, and the permanent cemented into position. After 12 minutes, the tourniquet deflated. After 14 minutes, the knee was irrigated, flexed, the trial spacer removed. No major bleeding encountered. Permanent spacer seated. The knee reduced. The quad snip was repaired at length in extension and the knee flexed and the rest of repair carried out. This allowed watertight repair of the mechanism. It was repaired with #2 Vicryl interrupted [id number] sutures. Subcutaneous layer was closed with 2-0 Vicryl and the skin with stainless steel clips. Appropriate dressing applied. Estimated blood loss was 100 mL. Crystalloid roughly 12-1300 mL. SUMMARY OF IMPLANTS: Size 5 right femur posterior cruciate substituting, size 5 rotating tibial platform tray, size 5 spacer 12.5 mm thick posterior cruciate substituting, oval domed 3-pegged patella size 38 and 2 bags of Palacos G cement. Pathology pending on bone. DVT prophylaxis with Coumadin. I attest to the content of the Intraoperative Record and any orders documented therein. Any exception s are noted below.
[2017-12-23] MEDS ORDERED: ACETAMINOPHEN IV 100 ML IV PRN (09:15)
[2017-12-23] MEDS ORDERED: ALUMINUM/MAGNESIUM/SIMETH (MAALOX MAX) 30 ML UDC PO PRN (09:15)
[2017-12-23] MEDS ORDERED: BISACODYL 10 MG SUPP PR PRN (09:15)
[2017-12-23] MEDS ORDERED: ONDANSETRON INJ 2 MG/ML 2 ML VIAL IV PRN (09:15)
[2017-12-23] MEDS ORDERED: SUMATRIPTAN SUCCINATE 50 MG TAB PO PRN (09:15)
[2017-12-23] MEDS ORDERED: TAMSULOSIN HCL 0.4 MG CAP PO PRN (09:15)
[2017-12-23] MEDS ORDERED: METOCLOPRAMIDE HCL INJ 5 MG/ML 2 ML VIAL IV PRN (09:15)
[2017-12-23] MEDS ORDERED: GABAPENTIN 600 MG TAB PO PRN (09:15)
[2017-12-23] MEDS ORDERED: MAGNESIUM HYDROXIDE SUSP 30 ML UDC PO PRN (09:15)
--- NOTE | 2017-12-23 09:35 | Anesthesiology Progress Note ---
Anesthesia Post Op Note Date & Time Dec 23, 2017 at 09:35 Vital Signs Pain Intensity: 0 Vital Signs Past 12 Hours Date Time Temp Pulse Resp B/P (MAP) Pulse Ox O2 Delivery O2 Flow Rate FiO2 12/23/17 09:20 36.7 74 18 118/74 94 Nasal Cannula 2 12/23/17 09:10 80 20 105/65 94 Nasal Cannula 2 12/23/17 09:01 36.6 74 20 104/59 92 Nasal Cannula 2 12/23/17 05:30 36.5 58 20 132/77 95 Room Air Notes Mental Status: alert / awake / arousable, participated in evaluation Pt Amnestic to Procedure: Yes Nausea / Vomiting: adequately controlled Pain: adequately controlled Airway Patency, RR, SpO2: stable & adequate BP & HR: stable & adequate Hydration State: stable & adequate Neuraxial Anesthesia: was administered, sensory block is resolving Anesthetic Complications: no major complications apparent anesthetic level at L5
--- NOTE | 2017-12-23 09:44 | DIAGNOSTIC IMAGING REPORT ---
R KNEE 1 OR 2 VIEWS ROUTINE CLINICAL HISTORY: AP/LATERAL IN PACU RIGHT KNEE pain COMPARISON: None. DISCUSSION: Anatomic alignment post total right knee arthroplasty. Good contact between prosthetic and underlying bone. Expected soft tissue post operative change. IMPRESSION: Anatomic alignment status post total right knee arthroplasty. The above report was generated using voice recognition software. It may contain grammatical, syntax or spelling errors. Electronically signed by: Papo Ruiz M.D. 12/23/2017 9:42 AM Dictated Date/Time: 12/23/2017 9:42 AM
[2017-12-23] MEDS ORDERED: D5W AND 1/2NSS + 20MEQ KCL 1,000 ML IV SCH (10:30)
[2017-12-23] MEDS: OXYCODONE HCL IR 5 MG TAB (IMMEDIATE RELEASE) PO PRN ×4 (10:53→23:40)
[2017-12-23] MEDS ORDERED: MoRPHine SULFATE 4 MG/ML 1 ML CARP\\VIAL IV PRN (11:00)
--- NOTE | 2017-12-23 11:21 | [facility] Operative Report ---
Operative Report Operative Date Dec 23, 2017. Pre-Operative Diagnosis Right Knee End-Stage Degenerative Joint Disease Post-Operative Diagnosis Right Knee End-Stage Degenerative Joint Disease Procedure(s) Performed Right Total Knee Arthroplasty Surgeon Dr. Joshua Slusher Operator Surgeon(s) Dr. Fitzgerald (Fellow)/KRISTI Chilel Estimated Blood Loss 100 ml Findings Right knee DJD Fluids 1200cc Specimens A. Right Knee Bone and Tissue Drains None Anesthesia Type MAC Spinal Regional Complication(s) none Disposition no Recovery Room / PACU Indications This 57-year-old white male presented to the office with complaints of intractable right knee pain. He had tried conservative care measures including activity modification, oral pain medication, and use of an assistive device without lasting improvement. He elected to proceed with surgical intervention after being educated about potential risks and outcomes. Preoperative imaging was obtained. He is unable to take anti-inflammatories secondary to previous renal failure. Description of Procedure Patient was administered a spinal anesthetic and then taken to the operating room where he was given sedation. He was prepped and draped in usual sterile fashion. Please see Dr. Joshua's operative report for specifics of the procedure. I was present for the entire case from initial patient positioning through final wound closure. Assistance was provided in tissue retraction, hemostasis, trial implant placement, final implant placement, and final wound closure. Patient was taken to the recovery room in satisfactory condition. I attest to the content of the Intraoperative Record and any orders documented therein. Any exceptions are noted below.
[2017-12-23] MEDS: MoRPHine SULFATE 2 MG/ML CARP IV PRN ×3 (11:54→20:12)
[2017-12-23] MEDS: FERROUS GLUCONATE 324 MG TAB PO SCH ×2 (12:13→18:01)
[2017-12-23] MEDS: ACETAMINOPHEN 500 MG TAB PO SCH ×2 (12:13→20:47)
[2017-12-23] MEDS: LORAZEPAM 1 MG TAB PO SCH ×2 (14:08→20:46)
[2017-12-23] MEDS ORDERED: TRANEXAMIC ACID INJ 1,000 MG in SODIUM CHLORIDE 0.9% 100ML 100 ML IV SCH (15:00)
[2017-12-23] MEDS: CEFAZOLIN IV 2,000 MG in SYRINGE 0 ML IV SCH ×2 (15:16→23:39)
[2017-12-23] MEDS ORDERED: WARFARIN SOD 5 MG TAB PO SCH (16:00)
--- NOTE | 2017-12-23 16:41 | PROGRESS NOTE ---
DATE: 12/23/2017 Postop check. Doing well. Needs to be motivated to get up and move. Vital signs are stable. Afebrile. No chest pain, shortness of breath, fever, chills, nausea, vomiting or headache. X-rays postop look excellent. ASSESSMENT: Doing well. Needs to get up out of bed with a knee immobilizer. Weightbearing to tolerance. Range of motion 0-60 only secondary to quad snip. Required to dislocate his patella to do the procedure. Will be weightbearing to tolerance with knee immobilizer on. Pain management is acceptable.
[2017-12-23] MEDS: DOCUSATE SODIUM 100 MG CAP PO SCH (20:46)
[2017-12-23] MEDS ORDERED: ZOLPIDEM TARTRATE 10 MG TAB PO SCH (21:00)
[2017-12-23] MEDS ORDERED: SENNA 8.6 MG TAB PO SCH (21:00)
[2017-12-23] MEDS ORDERED: HYDROCORTISONE 10 MG TAB PO SCH (21:00)
[2017-12-24] MEDS: MoRPHine SULFATE 2 MG/ML CARP IV PRN ×4 (00:48→15:08)
[2017-12-24 03:28] VITALS: BP 115/71; PULSE 79; TEMP 37; O2SAT 94
[2017-12-24] MEDS: OXYCODONE HCL IR 5 MG TAB (IMMEDIATE RELEASE) PO PRN ×3 (03:43→12:50)
[2017-12-24] MEDS: ACETAMINOPHEN 500 MG TAB PO SCH ×2 (05:38→14:24)
[2017-12-24 05:51] LABS: HEMATOCRIT 40.1 % (42-52); HEMOGLOBIN 13.4 g/dL (14.0-18.0); MEAN CELL VOLUME 90.9 fL (80-100); MEAN CORPUSCULAR HEMOGLOBIN 30.4 pg (25-34); MEAN CORPUSCULAR HGB CONC 33.4 g/dl (32-36); MEAN PLATELET VOLUME 9.8 fL (7.4-10.4); PLATELET COUNT 188 K/uL (130-400); WHITE BLOOD COUNT 9.19 K/uL (4.8-10.8)
[2017-12-24] MEDS ORDERED: LEVOTHYROXINE 100 MCG TAB PO SCH (06:00)
[2017-12-24 06:28] LABS: CALCIUM 8.8 mg/dl (8.5-10.1); CREATININE 1.04 mg/dl (0.60-1.40); POTASSIUM 3.7 mmol/L (3.5-5.1)
[2017-12-24 07:25] VITALS: BP 124/77; PULSE 84; TEMP 37.2; O2SAT 93
[2017-12-24] MEDS ORDERED: DEXAMETHASONE INJ 10 MG in SYRINGE 0 ML IV SCH (07:30)
--- NOTE | 2017-12-24 07:30 | PROGRESS NOTE ---
DATE: 12/24/2017 SUBJECTIVE: Postop day 1 status post right total knee replacement. At this point in time, the patient is being a little bit resistant to getting up and moving around. He did state he walked around the room last night. I have encouraged him that this is very important and he needs to minimize his risk for complications by getting up and moving. Also told that he should be able to leave this afternoon. At this point in time, he denies chest pain, shortness of breath, fever, chills, nausea, vomiting or headache. He is requesting something more than Percocet 10 for pain. OBJECTIVE: Vital signs are stable. He is afebrile. Hematocrit stable at 40.1. INR is 1.0. The electrolytes are good. Calves nontender. Abdomen soft, nontender. Wound dressing clean, dry and intact. ASSESSMENT: Overall, doing well. At this point in time should be able to be discharged this afternoon after PT, OT. Range of motion knee is 0-60, wear knee immobilizer for ambulation for 2 weeks secondary to the quad snip required to release all of the scar around his patella. Coumadin to keep INR 1.8-2.2. Discharge on 6 mg a day based on his size. Check INR on Thursday. MTDD
--- NOTE | 2017-12-24 07:37 | DISCHARGE SUMMARY ---
CHIEF COMPLAINT: Right knee pain. HISTORY OF PRESENT ILLNESS: A 57-year-old male admitted for elective right total knee replacement. He is morbidly obese. He has been on chronic narcotics and has a history of having narcotic use. It was discussed in detail with him preoperatively with everybody including his primary care doctor. PAST MEDICAL HISTORY: Remarkable for chronic pain, hypertension, hypothyroidism, osteoarthritis, sleep apnea, hypercholesterolemia, renal disease, narcotic abuse history. PAST SURGICAL HISTORY: Remarkable for left quadriceps tendon repair, right Achilles tendon repair. FAMILY HISTORY: Remarkable for cancer and heart disease. SOCIAL HISTORY: Reveals he is . No tobacco or alcohol use. History of narcotic abuse. No cigarette use. Positive smokeless tobacco. ALLERGIES: ADVIL SECONDARY TO RENAL DISEASE. PREADMISSION MEDICATIONS: Include Ambien, atenolol, benazepril, Cortef, Lexapro, lorazepam, sertraline, Synthroid, Tylenol and testosterone. REVIEW OF SYSTEMS: Noncontributory. PERTINENT PHYSICAL EXAMINATION: Reveals neurovascular check to be normal. No evidence of DVT. No major drainage from the wound. Postop x-rays look excellent. ASSESSMENT: Overall, doing well and will be discharged later today after PT, OT. Discharge on Dilaudid 2 mg p.o. q. 4 hours p.r.n., dispense 30 pills, no refills. After that pain management will be secondary to his primary care physician, Dr. Elizabeth. Continue all preadmission medications. Follow up in 1 week for dressing removal. We will place Prevena on today.
[2017-12-24] MEDS: LORAZEPAM 1 MG TAB PO SCH ×2 (08:53→14:23)
[2017-12-24] MEDS: FERROUS GLUCONATE 324 MG TAB PO SCH ×2 (08:53→12:49)
[2017-12-24] MEDS: DOCUSATE SODIUM 100 MG CAP PO SCH (08:55)
[2017-12-24] MEDS ORDERED: ESCITALOPRAM OXALATE 20 MG TAB PO SCH (09:00)
[2017-12-24] MEDS ORDERED: PANTOprazole SOD 40 MG TAB PO SCH (09:00)
[2017-12-24] MEDS ORDERED: HYDROCORTISONE 10 MG TAB PO SCH (09:00)
[2017-12-24] MEDS ORDERED: SERTRALINE HCL 50 MG TAB PO SCH (09:00)
[2017-12-24] MEDS ORDERED: LISINOPRIL 20 MG TAB PO SCH (09:00)
[2017-12-24] MEDS ORDERED: MULTIVITAMIN TAB PO SCH (09:00)
--- NOTE | 2017-12-24 09:31 | Orthopedic Progress Note ---
Orthopedic Progress Note Date of Service Dec 24, 2017. Subjective Post OP Day: 1 Reports: complaints (of R knee pain.), Denies: chest pain, SOB, nausea / vomiting, light headedness, calf pain Additional Notes: States he did get out of bed last night to go to the bathroom Objective calves soft nontender, N/V intact, capillary refill less than 2 sec., dressing C /D/I, incision C/D/I, A&O x3, toes mobile, CMS intact Moderate drainage on bandages. No active bleeding. Expected post op edema. Date Time Temp Pulse Resp B/P (MAP) Pulse Ox O2 Delivery O2 Flow Rate FiO2 12/24/17 07:25 Room Air 12/24/17 07:25 37.2 84 15 124/77 (93) 93 Room Air 12/24/17 03:28 37.0 79 17 115/71 (86) 94 Room Air 12/23/17 23:40 Room Air 12/23/17 23:18 37.5 102 17 112/71 (85) 92 Room Air 12/23/17 20:01 36.9 101 16 130/81 (97) 94 Room Air 12/23/17 15:29 37.0 87 18 119/65 (83) 92 Nasal Cannula 2.0 12/23/17 15:10 Nasal Cannula 2.0 12/23/17 12:47 36.9 83 18 126/70 (88) 94 Nasal Cannula 2.0 12/23/17 11:47 36.9 80 19 121/70 (87) 96 Nasal Cannula 2.0 12/23/17 10:49 36.4 70 17 131/75 (93) 96 Nasal Cannula 12/23/17 10:21 36.7 62 18 128/79 (95) 97 Nasal Cannula 2.0 12/23/17 09:55 36.5 66 18 122/77 (92) 96 Nasal Cannula 2.0 12/23/17 09:55 Nasal Cannula 2.0 12/23/17 09:55 Nasal Cannula 2.0 12/23/17 09:30 74 20 98/55 95 Nasal Cannula 2 Laboratory Results 24 Hours: Test 12/24/17 05:20 Hematocrit 40.1 % Hemoglobin 13.4 g/dL Prothromb Time International Ratio 1.0 Prothrombin Time 10.8 SECONDS Assessment & Plan Assessment: Post op day 1 Right total knee arthroplasty Plan: PT/OT today coumadin per nomogram. Please give today's dose prior to departure dressing changed this morning-wound looks good WBAT with walker and immobilizer D/C today to [facility] or home health pending insurance. Follow up in the office in 1 week for Prevena removal. Discharge Planning Discharge Planning: uncertain Pain Management: Dilaudid DVT Prophylaxis: TEDs, SCDs, Coumadin Therapy: Physical Therapy, Occupational Therapy
[2017-12-24] MEDS ORDERED: HYDR2TAB48 PO (09:35)
[2017-12-24] MEDS ORDERED: WARF2TAB PO (09:35)
--- NOTE | 2017-12-24 09:55 | Pain Management Consultation ---
Pain Management Consultation Date of Consultation Dec 24, 2017. Reason for Consultation Right knee pain Pain Location 1 - History Mr. Caceres is a 57 y/o white male that had a right total knee replaced by Dr. Joshua yesterday. Patient does complain of pain in the right knee postoperatively. Patient has been ambulating around the room with assistance since yesterday. He is taking Oxycodone 10mg x 4 hours for pain which he states is minimally effective. He does have Morphine 2mg IV x 1 hr PRN breakthrough pain which he states is providing mild relief. Patient rates his pain 10/10 currently. He does wish to go to a rehab facility on discharge but unsure if his health insurance will cover for it. Patient denies any constitutional complaints. Case discussed with Dr. Randall Past Medical/Surgical History (1) Pituitary adenoma (2) Achilles tendon repair (3) Panhypopituitarism (4) Hyperlipidemia (5) Intracranial bleed (6) Benign hypertension (7) Seizure disorder (8) CKD (chronic kidney disease), stage III (9) Depression with anxiety (10) Pancreatitis (11) Gout (12) Hx of substance abuse (13) GERD (gastroesophageal reflux disease) (14) S/P tonsillectomy (15) Status post transsphenoidal pituitary resection (16) H/O knee surgery (17) H/O esophagogastroduodenoscopy (18) H/O colonoscopy Family History Cancer FH: multiple myeloma FATHER Hypertension FATHER Social / Work History Drug Use: none Marital Status: Housing Status: lives with significant other Allergies Coded Allergies: BEE STING (Verified Allergy, Severe, anaphylaxis WITH MANY STINGS IN THE PAST, 12/23/17) NSAIDs (Verified Allergy, Unknown, contraindicated d/t med hx.-PROTECT KIDNEYS, 12/23/17) Simvastatin (Verified Adverse Reaction, Unknown, AVOID TO PROTECT KIDNEYS , 12/23/17) Medications Current Inpatient Medications Medications (Trade) Dose Ordered Sig/Hernandez Route Start Time Stop Time Status Last Admin Dose Admin Oxycodone HCl (Roxicodone Immediate Rel Tab) 1 TABLET FOR PAIN RATING... Q4H PRN PO 12/23/17 09:15 01/06/18 09:14 12/24/17 08:01 10 MG Morphine Sulfate (MoRPHine SULFATE INJ) 2 mg Q1HWA PRN IV 12/23/17 09:15 01/06/18 09:14 12/24/17 04:49 2 MG Acetaminophen (Tylenol Tab) 1,000 mg Q8 PO 12/23/17 12:00 01/22/18 11:59 12/24/17 05:38 1,000 MG Magnesium Hydroxide (Milk Of Magnesia Susp) 30 ml Q6H PRN PO 12/23/17 09:15 01/22/18 09:14 Bisacodyl (Dulcolax Supp) 10 mg DAILY PRN MS 12/23/17 09:15 01/22/18 09:14 Senna (Senokot Tab) 17.2 mg HS PO 12/23/17 21:00 01/22/18 20:59 12/23/17 20:46 17.2 MG Docusate Sodium (coLACE CAP) 100 mg BID PO 12/23/17 21:00 01/22/18 20:59 12/24/17 08:55 100 MG Diphenhydramine HCl (Benadryl Cap) 25 mg Q8H PRN PO 12/23/17 09:15 01/22/18 09:14 Al Hydrox/Mg Hydrox/Simethicone (Maalox Max Susp) 15 ml Q4H PRN PO 12/23/17 09:15 01/22/18 09:14 Multivitamins (Multivitamin Tab) 1 tab QAM PO 12/24/17 09:00 01/23/18 08:59 12/24/17 08:55 1 TAB Ondansetron HCl (Zofran Inj) 4 mg Q6H PRN IV 12/23/17 09:15 01/22/18 09:14 Metoclopramide HCl (Reglan Inj) 10 mg Q6H PRN IV 12/23/17 09:15 01/22/18 09:14 Ferrous Gluconate (Ferrous Gluconate Tab) 324 mg TIDM PO 12/23/17 12:30 01/22/18 12:29 12/24/17 08:53 324 MG Pantoprazole Sodium (Protonix Tab) 40 mg QAM PO 12/24/17 09:00 12/27/17 09:01 12/24/17 08:55 40 MG Tamsulosin HCl (Flomax Cap) 0.4 mg QAM PRN PO 12/23/17 09:15 01/22/18 09:14 Atenolol (Tenormin Tab) 50 mg QAM PO 12/24/17 09:00 01/23/18 08:59 12/24/17 08:54 50 MG Folic Acid (Folvite Tab) 1 mg QAM PO 12/24/17 09:00 01/23/18 08:59 12/24/17 08:54 1 MG Gabapentin (Neurontin Tab) 600 mg TID PRN PO 12/23/17 09:15 01/22/18 09:14 Hydrocortisone (Cortef Tab) 10 mg QPM PO 12/23/17 21:00 01/22/18 20:59 12/23/17 20:46 10 MG Hydrocortisone (Cortef Tab) 20 mg QAM PO 12/24/17 09:00 01/23/18 08:59 12/24/17 08:54 20 MG Levothyroxine Sodium (Synthroid Tab) 300 mcg DAILYBB PO 12/24/17 06:00 01/23/18 05:59 12/24/17 05:38 300 MCG Lisinopril (Zestril Tab) 20 mg QAM PO 12/24/17 09:00 01/23/18 08:59 12/24/17 08:55 20 MG Lorazepam (Ativan Tab) 1 mg TID PO 12/23/17 14:00 01/22/18 13:59 12/24/17 08:53 1 MG Sertraline HCl (Zoloft Tab) 100 mg QAM PO 12/24/17 09:00 01/23/18 08:59 12/24/17 08:54 100 MG Sumatriptan Succinate (Imitrex Tab) 50 mg PRN PRN PO 12/23/17 09:15 01/22/18 09:14 12/24/17 00:19 50 MG Zolpidem Tartrate (Ambien Tab) 10 mg HS PO 12/23/17 21:00 01/22/18 20:59 12/23/17 20:46 10 MG Miscellaneous Information (Order Awaiting Action) 1 ea QS N/A 12/23/17 16:00 01/22/18 15:59 Morphine Sulfate (MoRPHine SULFATE INJ) 4 mg Q1HWA PRN IV 12/23/17 11:00 01/06/18 10:59 Miscellaneous Information (Nursing Ortho Warfarin Nomogram Dose) 1 ea TODAY N/A 12/24/17 07:45 12/24/17 07:46 UNV Review of Systems Denies complaints related to 10 point organ system review. Physical Exam Height & Weight: Height 5 feet, 10 inches. Weight 153.900 (Kilograms) 339 (Pounds) Last Vital Signs Documentation Date Time Temp Pulse Resp B/P (MAP) Pulse Ox O2 Delivery O2 Flow Rate FiO2 12/24/17 07:25 Room Air 12/24/17 07:25 37.2 84 15 124/77 (93) 93 12/23/17 15:29 2.0 Exam: GENERAL: Mr. Caceres is a 57 y/o white male that appears morbidly obese and physically deconditioned. He does appear older than his stated age. Speech and cognition is intact. Mood and affect is appropriate. HEAD: Normocephalic; atraumatic. EYES: Pupils are round, equal, and reactive to light; EOM intact. CHEST: Regular chest respiration and excursion. EXTREMITIES: Right knee is immobilized and bandaged. NEURO: CN II-XII grossly intact with no focal deficits noted. AAO x 3. SKIN: No lesions, erythema, or rashes noted. Right knee incision was not inspected. Laboratory Laboratory Results (Last CBC): 12/24/17 05:20 Past Records Previous Records: personally reviewed by me (Patient has a history of medication misuse and overdose, most recently 6 months ago on Percocet and Ativan) [place] Drug Monitoring [place] Search Results: patient reviewed within database Drug Monitoring Findings: Last Percocet prescription was in 05/2017. No opioid prescriptions since then. Prior to 05/2017, there does appear to be routine opioid prescriptions for 5+ years including Percocet and [place]. He does continue to receive regular Ativan and Ambien prescriptions. Opioid Risk Assessment Risk assessment performed, high risk identified Assessment 1. Right knee pain status post arthroplasty 2. History of opioid abuse 3. Morbid Obesity Recommendations 1. Patient will continue to ambulate around the room and the hallways of the hospital as instructed. 2. As per orthopedics, he is to be prescribed a short course of Dilaudid PO for postoperative pain. It is recommended that the patient be offered a prescription for Narcan in case of accidental overdose given the patient's significant history.
[2017-12-24 11:19] VITALS: BP 119/74; PULSE 71; TEMP 37.3; O2SAT 95
[2017-12-24 15:35] VITALS: BP 112/68; PULSE 67; TEMP 37.4; O2SAT 92
[2017-12-24] MEDS ORDERED: WARFARIN SOD 5 MG TAB PO ONE (16:00)
--- NOTE | 2017-12-24 17:03 | Discharge Instructions ---
Discharge Instructions Date of Service Dec 24, 2017. Admission Reason for Admission: Right Knee Osteoarthritis Discharge Discharge Diagnosis / Problem: Right knee s/p total knee replacement Discharge Goals Goal(s): Decrease discomfort, Improve function, Increase independence Activity Recommendations Activity Limitations: as noted below Lifting Limitations: gradually increase as tolerated Exercise/Sports Limitations: until after follow-up appointment Shower/Bathe: keep incision dry Driving or Machine Use: No driving until cleared by Dr. Joshua Weightbearing Status: Right weightbearing (as tolerated, with knee immobilizer on) Knee flexion to 60 degrees max, for the first 2 weeks. May do full extension. Patient needs to have knee immobilizer on when weight bearing . Instructions / Follow-Up Instructions / Follow-Up New Medicine: * You will likely be taking one or more of these medications: 1. Dilaudid - Take, as directed, when you need it, every four to six hours to control your pain. 2. Coumadin - Thins your blood to lessen the chance of forming a blood clot. The dose of this is different for each person and is based on your blood tests that are done twice a week. * The most common side effects of pain medicine and iron are nausea and constipation. If nausea or constipation is too much of a problem or if you have any questions about your new medicines or doses, call [facility] at . We will try to help you manage these issues. VERY IMPORTANT TO READ AND REVIEW" Blood Clots and Blood Thinning Medicine: * You are given Coumadin during the immediate post-operative period to lessen the risk of blood clots forming in your legs and/or lungs. Coumadin is usually given for six weeks after surgery. * The prescription is for 2 mg tablets. At discharge, you should understand your dose and take it all at the same time every day, preferably after dinner. * You need to get your blood checked 1 - 2 times per week for six weeks or as directed. * If your dose needs to change, we will call you. Do not take your medication on the day of the blood test until we call you. Pain: * The immediate post-operative period after knee replacement surgery is often quite painful. * You are given a prescription for pain medicine. You should take it, as directed, when you need it, especially before physical therapy and before going to bed. Pain that interferes with sleep is very common and can last several months. * You will likely need pain medicine for the first four to six weeks. It will not stop all of the pain. The pain will lessen and as you feel better, you may change to milder pain medicine such as Tylenol. * The most common side effects of pain medicine are nausea and constipation, so don't take more than you need. Physical Therapy: * You will have physical therapy two or three times each week for four to six weeks after your surgery in order to regain your knee range of motion and to retrain your knee to work properly. * It is just as important to make sure you are getting your knee perfectly straight as it is to regain your knee bend. * Taking a pain pill an hour before therapy can help you have a more productive and comfortable therapy session if needed. Home Exercise: * You were shown a series of exercises (heel props, heel slides, etc.) in the hospital. Do these exercises three to four times each day including the exercises you were shown in physical therapy. Walking: * Get up and walk several times each day. For the first four weeks, try not to stand or walk for more than one hour at a time. If you do stand or walk for more than one hour, you will not hurt anything, but your knee and leg will likely swell. * As you feel comfortable, you may change from the walker or crutches to a cane and then to independent walking. SELF CARE INSTRUCTIONS AFTER TOTAL KNEE REPLACEMENT A. You may need to continue a physical therapy program after discharge from the hospital. There are several options available to you. Your doctor will assist you in selecting the best one for you. 1. An out-patient facility 2 to 3 times a week for therapy or home therapy. 2. Continue working on all exercises taught to you in the hospital. Your goals should be to increase bending of your knee to 90 degrees and beyond and to fully straighten your knee. B. You may progress at your own pace from walking with a walker or crutches to a cane; then to no assistive devices. C. Make walking a part of your daily routine. Be up as much as comfortable with rest periods throughout the day. Rest with leg elevation is very important. Use the ice wrap frequently for the first 3-4 weeks. D. There are no restrictions on activities. You may ride in a car, shop, participate in color corrector and all social activities. E. Wear the long elastic stockings (FANNY hose) 20 hours a day for six weeks after surgery. They can be removed several times a day for laundering and for a shower. F. Do not place a pillow behind your knee when resting. A pillow at your ankle is okay. VERY IMPORTANT TO READ AND REVIEW A. Take Coumadin, Aspirin or Lovenox (blood thinning medications) as directed by your doctor. If on Coumadin, have a pro-time (blood test) drawn according to your doctor's instructions. This will tell the doctor how well the Coumadin is thinning your blood. 1. YOU WILL BE GIVEN AN ORDER AT DISCHARGE FOR PT/INR (BLOOD WORK). PLEASE HAVE THIS DONE INSTRUCTED. PLEASE CALL OUR OFFICE AFTER YOUR BLOODWORK IS COMPLETE SO WE CAN TRACK YOUR RESULTS. IF YOU ARE GOING TO OUTPATIENT PHYSICAL THERAPY, YOU WILL NEED TO GO TO OUTPATIENT TESTING TO HAVE IT DRAWN. B. There are a few signs you need to watch for after you are home. Call [facility] if you notice any of the followin. Increased severe knee pain. Some pain is expected especially when you exercise. 2. Increased swelling in your leg or knee; pain or swelling of the calf muscle in either lower leg. 3. Any fluid drainage from the incision. 4. Shortness of breath or chest pain. C. Please call [facility] at if you have any concerns or questions about your operation or recovery. The doctor or his nurse will return your call promptly. D. You must take antibiotics before dental work, bladder, bowel or other surgery. Call the office to obtain a prescription at least 2 days prior to your appointment. * CALL IF INCREASED PAIN, REDNESS, DRAINAGE OR FEVER GREATER THAT 101. * Sutures should be removed 12-14 days after surgery unless you are on chronic steriods, then it will be 14-18 days after surgery. Call your doctor if: * Temperature above 101 degrees F. * Pain not relieved by pain medicine ordered. * Increased drainage or redness from incision. * Notify your doctor with any questions or concerns. Current Hospital Diet Patient's current hospital diet: Regular Diet Discharge Diet Recommended Diet: Regular Diet Procedures Procedures Performed: Right Total Knee Arthroplasty Pending Studies Studies pending at discharge: no Medical Emergencies . Who to Call and When: Medical Emergencies: If at any time you feel your situation is an emergency, please call 911 immediately. . Non-Emergent Contact Non-Emergency issues call your: Primary Care Provider, Surgeon Call Non-Emergent contact if: temperature is above 101, wound has increased drainage, wound has increased redness, wound has increased pain, you have any medication questions . "Provider Documentation" section prepared by Davidson Cunningham PA-C. . [place] Drug Monitoring [place] Search Results: patient reviewed within database, no issues identified
== END 2017-12-24 18:00 | disposition home health service (06) | DRG 470 ==
LOC: C.ACU 04:46 → C.3E 06:03 → ENRESERV 09:36
PROVIDERS: ADMIT Physical Medicine & Rehabilitation Sports Medicine; ATTEND Physical Medicine & Rehabilitation Sports Medicine
PROC: 0SRC0J9 Replacement of Right Knee Joint with Synthetic Substitute, Cemented, Open Approach (ICD-10-PCS; principal; 2017-12-23 07:00)
DX: M17.11 Unilateral primary osteoarthritis, right knee (principal); Z68.42 Body mass index [BMI] 45.0-49.9, adult; M21.161 Varus deformity, not elsewhere classified, right knee; G62.9 Polyneuropathy, unspecified; G43.909 Migraine, unspecified, not intractable, without status migrainosus; E89.3 Postprocedural hypopituitarism; G89.29 Other chronic pain; I12.9 Hypertensive chronic kidney disease with stage 1 through stage 4 chronic kidney disease, or unspecified chronic kidney disease; N18.3 Chronic kidney disease, stage 3 (moderate); E03.9 Hypothyroidism, unspecified; G47.30 Sleep apnea, unspecified; F11.11 Opioid abuse, in remission; F41.9 Anxiety disorder, unspecified; F32.9 Major depressive disorder, single episode, unspecified; E66.01 Morbid (severe) obesity due to excess calories; Z72.0 Tobacco use; Z79.52 Long term (current) use of systemic steroids; Z79.891 Long term (current) use of opiate analgesic; Z79.899 Other long term (current) drug therapy; Z91.030 Bee allergy status; Z88.8 Allergy status to other drugs, medicaments and biological substances

== ENCOUNTER → 2018-01-08 | Outpatient (CLI) | payer BC, OTHER ==
[~2018-01-08] MED LIST changes: -ESCI1TAB10 PO; +WARF2TAB PO
[2018-01-08 11:06] LABS: INR 2.2 (0.9-1.1)
--- NOTE | 2018-01-29 13:21 | CODING QUERY MEDICAL NECESSITY ---
Valid Physician Order Needed A valid physician order must be submitted in order to properly bill for the service(s) provided, including date of service(s), valid diagnosis, and physician signature. If these tests are done on a recurring basis the original physican order must be submitted in order to code and bill for the service(s) provided. Please fax us the original, signed physician order so that we may expedite billing to [phone] DOS 01/08/18 * PT/INR Thank you [facility] Information Management
== END | disposition home or self-care (01) ==
LOC: C.LABSPEC 10:43
PROVIDERS: ATTEND Physical Medicine & Rehabilitation Sports Medicine
DX: Z01.89 Encounter for other specified special examinations (principal)

== ENCOUNTER → 2018-01-15 | Outpatient (CLI) | payer BC, OTHER ==
[2018-01-15 12:12] LABS: INR 2.4 (0.9-1.1)
== END | disposition home or self-care (01) ==
LOC: C.LABSPEC 11:36
PROVIDERS: ATTEND Physical Medicine & Rehabilitation Sports Medicine
DX: Z79.01 Long term (current) use of anticoagulants (principal)

== ENCOUNTER → 2018-02-08 | Outpatient (CLI) | payer BC, OTHER | END | disposition home or self-care (01) | LOC: C.RDSM 16:31 | PROVIDERS: ATTEND Physical Medicine & Rehabilitation Sports Medicine | DX: Z96.651 Presence of right artificial knee joint (principal) ==

== ENCOUNTER → 2018-05-10 | Outpatient (CLI) | payer BC, OTHER ==
[~2018-05-10] MED LIST changes: +THIA100T10 PO; -THIA100T11 PO
[2018-05-10 16:34] LABS: BASO % 0.3 %; BASO ABS # 0.02 K/uL (0-0.2); EOS % 2.6 %; EOS ABS # 0.21 K/uL (0-0.5); HEMATOCRIT 43.2 % (42-52); IG# 0.01 K/uL (0.00-0.02); LYMPH % 33.3 %; LYMPH ABS # 2.65 K/uL (1.2-3.4); MEAN CELL VOLUME 92.7 fL (80-100); MEAN CORPUSCULAR HGB CONC 32.4 g/dl (32-36); MONO % 5.3 %; MONO ABS # 0.42 K/uL (0.11-0.59); NEUT % 58.4 %; NEUT ABS # 4.65 K/uL (1.4-6.5); PLATELET COUNT 231 K/uL (130-400); RED CELL DISTRIBUTION WIDTH CV 13.8 % (11.5-14.5); RED CELL DISTRIBUTION WIDTH SD 46.8 fL (36.4-46.3); WHITE BLOOD COUNT 7.96 K/uL (4.8-10.8)
== END | disposition home or self-care (01) ==
LOC: C.LAB1850 13:56
PROVIDERS: ATTEND Internal Medicine Endocrinology, Diabetes & Metabolism
DX: E23.0 Hypopituitarism (principal); E23.6 Other disorders of pituitary gland; E03.8 Other specified hypothyroidism; Z87.898 Personal history of other specified conditions